=== PATIENT | male | born 1950 | race Caucasian/White ===

== ENCOUNTER 2017-10-17 21:00 | Emergency (ER) | payer MEDICARE, BC ==
[~2017-10-17] VITALS: Ht 198.1 cm; Wt 127.0 kg
[2017-10-17] MEDS ORDERED: METOPROLOL SUC100 MG ORAL (21:32)
[2017-10-17] MEDS ORDERED: ATORVASTATIN CA20 MG ORAL (21:32)
[2017-10-17] MEDS ORDERED: REPAGLINIDE2 MG PO (21:32)
[2017-10-17] MEDS ORDERED: DIGOXIN250 MCG ORAL (21:32)
[2017-10-17] MEDS ORDERED: GLIMEPIRIDE4 MG ORAL (21:32)
[2017-10-17] MEDS ORDERED: FUROSEMIDE80 M1 ORAL (21:32)
[2017-10-17] MEDS ORDERED: METFORMIN HCL1000 M1 ORAL (21:32)
[2017-10-17] MEDS ORDERED: ALLOPURINOL100 M1 ORAL (21:32)
[2017-10-17] MEDS ORDERED: POTASSIUM CHLO20 ME3 PO (21:32)
[2017-10-17] MEDS ORDERED: INDOMETHACIN25 MG PO (21:32)
[2017-10-17] MEDS ORDERED: HYDROCODON-ACE1 EA15 ORAL (21:32)
[2017-10-17] MEDS ORDERED: WARFARIN SODIUM5 MG ORAL (21:32)
[2017-10-17 22:50] LABS: BASOPHILS % (AUTO) 1.9 % (0.0-2.0); EOSINOPHILS % (AUTO) 2.1 % (0.0-3.0); HEMATOCRIT 49.3 % (42.0-52.0); LYMPHOCYTES % (AUTO) 19.4 % (20.0-45.0); MEAN CORPUSCULAR VOLUME 86 FL (80-99); MONOCYTES % (AUTO) 8.2 % (1.0-10.0); NEUTROPHILS % (AUTO) 68.3 % (45.0-75.0); PLATELET COUNT 100 K/UL (150-450); RED BLOOD COUNT 5.72 M/UL (4.70-6.10); RED CELL DISTRIBUTION WIDTH 11.7 % (11.6-14.8); WHITE BLOOD COUNT 10.4 K/UL (4.8-10.8)
[2017-10-17 22:57] LABS: INR 1.3 (0.9-1.1)
[2017-10-17 23:11] VITALS: BP 130/81
[2017-10-17 23:59] VITALS: BP 130/81
--- NOTE | 2017-10-18 03:42 | Emergency Room Report ---
History of Present Illness General Chief Complaint: Nosebleed Source: Patient Present Illness HPI Patient is a 66-year-old male who presented after increased nose bleeding. The patient had onset of symptoms approximately 2 hours prior to arrival. He had the recent increased number of episodes of similar symptoms. Denies any prior trauma. He reportedly had been drinking alcohol immediately prior to onset. The patient had been taking warfarin for irregular heartbeat. Allergies: Coded Allergies: SULFA (SULFONAMIDE ANTIBIOTICS) (Verified Allergy, Unknown, 10/17/17) Patient History Past Medical History: see triage record Reviewed Nursing Documentation: PMH: Agreed; PSxH: Agreed Nursing Documentation-PMH Hx Cardiac Problems: Yes - AFIBB, 4x CABG Hx Hypertension: Yes Hx Pacemaker: Yes Hx Diabetes: Yes - DM II Review of Systems All Other Systems: negative except mentioned in HPI Physical Exam Vital Signs Date Time Temp Pulse Resp B/P (MAP) Pulse Ox O2 Delivery O2 Flow Rate FiO2 10/17/17 21:21 98.1 102 16 144/82 94 Room Air 98.1 General Appearance: well appearing, no apparent distress, alert, GCS 15, Chronically Ill Head: normocephalic, atraumatic ENT: hearing grossly normal, normal voice, other - rhinophyma, packing in left nare, small amount of clotted nasal blood to right nare, no active bleeding noted Neck: full range of motion, supple Respiratory: no respiratory distress, speaking full sentences Cardiovascular #1: normal peripheral pulses, no edema, no gallop Gastrointestinal: normal inspection Musculoskeletal: normal inspection, no calf tenderness Neurologic: normal inspection, alert, oriented x3, responsive, normal gait Psychiatric: mood/affect normal Skin: no rash Medical Decision Making Diagnostic Impression: Primary Impression: Epistaxis Additional Impression: Rhinophyma ER Course Patient presented for nosebleed. Differential diagnosis included was not limited to anterior epistaxis, posterior epistaxis, coagulopathy, anemia among others.Because of complexity of patient's case laboratory testing and imaging studies were ordered.The patient was noted to have subtherapeutic INR . The patient's left naris was packed with an anterior pack. The patient was advised to continue his Coumadin. The patient is advised to return tomorrow for packing removal. the patient was advised to follow-up with ENT. Labs Test 10/17/17 21:45 White Blood Count 10.4 K/UL (4.8-10.8) Red Blood Count 5.72 M/UL (4.70-6.10) Hemoglobin 17.0 G/DL (14.2-18.0) Hematocrit 49.3 % (42.0-52.0) Mean Corpuscular Volume 86 FL (80-99) Mean Corpuscular Hemoglobin 29.8 PG (27.0-31.0) Mean Corpuscular Hemoglobin Concent 34.5 G/DL (32.0-36.0) Red Cell Distribution Width 11.7 % (11.6-14.8) Platelet Count 100 K/UL (150-450) Mean Platelet Volume 11.5 FL (6.5-10.1) Neutrophils (%) (Auto) 68.3 % (45.0-75.0) Lymphocytes (%) (Auto) 19.4 % (20.0-45.0) Monocytes (%) (Auto) 8.2 % (1.0-10.0) Eosinophils (%) (Auto) 2.1 % (0.0-3.0) Basophils (%) (Auto) 1.9 % (0.0-2.0) Prothrombin Time 13.5 SEC (9.30-11.50) Prothromb Time International Ratio 1.3 (0.9-1.1) Activated Partial Thromboplast Time 29 SEC (23-33) Last Vital Signs Date Time Temp Pulse Resp B/P (MAP) Pulse Ox O2 Delivery O2 Flow Rate FiO2 10/17/17 23:59 98.1 97 13 130/81 95 Room Air 98.1 Status: improved Disposition: HOME, SELF-CARE Condition: Improved Referrals: NON PHYSICIAN (PCP) Patient Instructions: Nosebleed, [id number] Wenceslao Barreto October 18, 2017 03:42
== END 2017-10-17 23:59 | disposition home or self-care (01) ==
LOC: EMR 21:44
DX: R04.0 Epistaxis (principal); L71.1 Rhinophyma; I10 Essential (primary) hypertension; E11.9 Type 2 diabetes mellitus without complications; I48.91 Unspecified atrial fibrillation; Z95.0 Presence of cardiac pacemaker; Z88.2 Allergy status to sulfonamides
CPT/HCPCS: 36415; 85025; 85610; 85730; 99283

== ENCOUNTER 2017-10-18 13:36 | Emergency (ER) | payer MEDICARE, BC ==
[~2017-10-18] VITALS: Ht 198.1 cm; Wt 127.0 kg
[~2017-10-18 13:36] MED LIST: ALLOPURINOL100 M1 ORAL; ATORVASTATIN CA20 MG ORAL; DIGOXIN250 MCG ORAL; FUROSEMIDE80 M1 ORAL; GLIMEPIRIDE4 MG ORAL; HYDROCODON-ACE1 EA15 ORAL; INDOMETHACIN25 MG PO; METFORMIN HCL1000 M1 ORAL; METOPROLOL SUC100 MG ORAL; POTASSIUM CHLO20 ME3 PO; REPAGLINIDE2 MG PO; WARFARIN SODIUM5 MG ORAL
[2017-10-18 13:58] VITALS: BP 140/73
[2017-10-18 14:33] VITALS: BP 140/73
--- NOTE | 2017-10-18 14:34 | Emergency Room Report ---
History of Present Illness General Chief Complaint: General Complaint Source: Patient, Medical Record Present Illness HPI Patient had nasal packing in the left nostril yesterday After he experienced epistaxis He reported that this is the third time is happened this here He returns today to have the packing removed Denies any headache denies any further bleeding Denies any blood in the back of the throat Patient has multiple comorbidities including quadruple bypass on multiple anticoagulants including Coumadin Allergies: Coded Allergies: SULFA (SULFONAMIDE ANTIBIOTICS) (Verified Allergy, Unknown, 10/17/17) Patient History Past Medical History: see triage record Pertinent Family History: none Reviewed Nursing Documentation: PMH: Agreed; PSxH: Agreed Nursing Documentation-PMH Past Medical History: No History, Except For Hx Cardiac Problems: Yes - AFIBB, 4x CABG Hx Hypertension: Yes Hx Pacemaker: Yes Hx Asthma: No Hx COPD: No Hx Diabetes: Yes - DM II Hx Cancer: No Hx Gastrointestinal Problems: No Hx Dialysis: No History Of Psychiatric Problem: No Hx Cerebrovascular Accident: No Hx Seizures: No Review of Systems All Other Systems: negative except mentioned in HPI Physical Exam Vital Signs Date Time Temp Pulse Resp B/P (MAP) Pulse Ox O2 Delivery O2 Flow Rate FiO2 10/18/17 13:58 97.7 81 16 140/73 94 Room Air 97.7 Sp02 EP Interpretation: reviewed, normal General Appearance: well appearing, no apparent distress Head: normocephalic, atraumatic Eyes: bilateral eye PERRL, bilateral eye EOMI ENT: hearing grossly normal, normal pharynx, TMs + canals normal, uvula midline , other - Packing in place in the left nostril balloon inflated Neck: full range of motion, supple, no meningismus, no bony tend Respiratory: lungs clear, normal breath sounds, no rhonchi, no respiratory distress, no retraction, no accessory muscle use Cardiovascular #1: normal peripheral pulses, regular rate, rhythm, no edema, no gallop, no JVD, no murmur Gastrointestinal: no guarding, no hernia, no pulsatile mass, no rebound Musculoskeletal: normal inspection Neurologic: oriented x3, responsive, home health lvn III-XII nml as tested, motor strength/ tone normal, sensory intact Psychiatric: mood/affect normal Skin: normal color, no rash, warm/dry, palpation normal Lymphatic: normal inspection, no adenopathy Medical Decision Making Diagnostic Impression: Primary Impression: Epistaxis Additional Impression: packing removed ER Course Given the patient's comorbidities given the anticoagulation that he is on I did recommend that the packing should be in place for the next 2-3 days And the patient to be on oral antibiotics However he reports that he does not want the packing in place, he also reports, that it takes him approximately 2 hours to get ready in the morning time, and that he understands the risk of bleeding and so requesting the apparatus to be removed Guest in the room also stated that the patient would be most likely drinking alcohol that evening he was advised of this does increase the risk of bleeding even more However the patient so requesting the packing to be removed This was removed in the usual fashion after deflating the balloon, reevaluation reveals appropriate removal no signs of any bleeding or oozing of blood patient was observed and stable for discharge home. Last Vital Signs Date Time Temp Pulse Resp B/P (MAP) Pulse Ox O2 Delivery O2 Flow Rate FiO2 10/18/17 13:58 16 140/73 94 Room Air 10/18/17 13:58 97.7 81 97.7 Status: improved Disposition: HOME, SELF-CARE Condition: Improved Patient Instructions: Nosebleed, [id number] Additional Instructions: It was advised that your packing remain in place for 2-3 days. However given your request understanding the risk factor of bleeding, the packing was removed. Please return if there are any concerns or changes Priscilla Hubbard DO October 18, 2017 14:34
== END 2017-10-18 15:04 | disposition home or self-care (01) ==
LOC: EMR 14:20
DX: R04.0 Epistaxis (principal); I10 Essential (primary) hypertension; I48.91 Unspecified atrial fibrillation; Z95.1 Presence of aortocoronary bypass graft; Z95.0 Presence of cardiac pacemaker; E11.9 Type 2 diabetes mellitus without complications; Z88.2 Allergy status to sulfonamides; Z79.01 Long term (current) use of anticoagulants
CPT/HCPCS: 99283

== ENCOUNTER 2017-10-20 20:51 | Inpatient (IN) | payer MEDICARE, BC ==
[~2017-10-20] VITALS: Ht 198.1 cm; Wt 127.0 kg
[2017-10-20] MEDS ORDERED: Silver Nitrate Stick TOPIC ONE (21:15)
[2017-10-20] MEDS ORDERED: Lidocaine 1% 10mg/ml/Epi 0.005mg/ml 30ml vial INJ ONE (21:15)
--- NOTE | 2017-10-20 21:17 | Emergency Room Report ---
History of Present Illness General Chief Complaint: Nosebleed Source: Patient, Significant Other Present Illness HPI The patient presents with nosebleed. Blood is coming from the left-hand side. Was seen on Friday and was at a packing placed. It was removed the next day. Today, while leaning forward the nose started to bleed and gush again. Patient is on Coumadin. He says there was a lot of blood. He packed the nose with Kleenex and this stopped the flow. He has swallowed blood, but denies nausea or epigastric discomfort. No headache, dizziness, chest pain, dyspnea. No melena. No fevers, facial pain. He drinks alcohol. H/O CVA. Chronic weakness post this. 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 Nursing Documentation: PMH: Agreed; PSxH: Agreed Nursing Documentation-PMH Hx Cardiac Problems: Yes - AFIBB, 4x CABG Hx Hypertension: Yes Hx Pacemaker: Yes Hx Asthma: No Hx COPD: No Hx Diabetes: Yes - DM II Hx Cancer: No Hx Gastrointestinal Problems: No Hx Dialysis: No Hx Cerebrovascular Accident: No Hx Seizures: No Review of Systems All Other Systems: negative except mentioned in HPI Physical Exam Vital Signs Date Time Temp Pulse Resp B/P (MAP) Pulse Ox O2 Delivery O2 Flow Rate FiO2 10/20/17 20:56 89 16 163/79 96 Room Air Sp02 EP Interpretation: reviewed, normal General Appearance: well appearing, no apparent distress, GCS 15 Head: normocephalic Eyes: bilateral eye normal inspection, bilateral eye PERRL ENT: moist mucus membranes, other - blood soaked Kleenex L nose Neck: supple Respiratory: lungs clear, normal breath sounds Cardiovascular #1: regular rate, rhythm Cardiovascular #2: 2+ radial (R) Gastrointestinal: normal inspection, normal bowel sounds, non tender, no mass, non-distended Musculoskeletal: back normal, gait/station normal, normal range of motion Neurologic: alert, oriented x3, normal gait - walks with cane, motor weakness - minimal Psychiatric: mood/affect normal Skin: normal inspection, warm/dry Procedures Additional Procedure Procedure Narrative Epistaxis control: lido epi packed cautery - not stop bleeding bleeding brisk. Rhinorocket placed (dual balloons). Bleeding less, but still ooze. Please see ER course. Medical Decision Making Diagnostic Impression: Primary Impression: Epistaxis Additional Impression: Anticoagulation adequate ER Course Patient presents with epistaxis on the left-hand side. Differential includes anterior bleed, posterior bleed. He is at increased risk because he is on Coumadin. He'll be packed with lidocaine and epinephrine and then we'll be looking trying cauterize the area. The bleeding stop of lidocaine with epinephrine and then there is a small lesion was cauterized however this did not control the bleeding. The patient was then packed with a Rhino rocket. The patient continued to ooze after placement of the Rhino Rocket. Therefore, he needed to see ENT emergently. The plan was to admit to the hospital have ENT consultation. Amoxicillin given. Analgesia also given. Dr. Encinas refuses admission as no ENT. Labs ordered. INR 2.8, slightly higher than prior eval. H/H high. CMP unremarkable. Still ooze but less. Trying to contact Dr. Ballesteros. Ordered Tranxanemic acid. Discussed with pharmacist. Not available. Contact [facility]. ENT unavailable. Discussion with Dr. Preciado who suggests packing both sides and reversing Coumadin. Calling [facility]. Saturation. Bleeding has stopped. Discussed with Dr. Ballesteros who will come to see the patient. Signed out to Dr. Hubbard. Laboratory Tests Test 10/21/17 00:25 White Blood Count 11.0 K/UL (4.8-10.8) H Red Blood Count 5.30 M/UL (4.70-6.10) Hemoglobin 16.9 G/DL (14.2-18.0) Hematocrit 46.4 % (42.0-52.0) Mean Corpuscular Volume 88 FL (80-99) Mean Corpuscular Hemoglobin 31.9 PG (27.0-31.0) H Mean Corpuscular Hemoglobin Concent 36.4 G/DL (32.0-36.0) H Red Cell Distribution Width 11.6 % (11.6-14.8) Platelet Count 110 K/UL (150-450) L Mean Platelet Volume 10.0 FL (6.5-10.1) Neutrophils (%) (Auto) 65.6 % (45.0-75.0) Lymphocytes (%) (Auto) 22.3 % (20.0-45.0) Monocytes (%) (Auto) 8.4 % (1.0-10.0) Eosinophils (%) (Auto) 2.3 % (0.0-3.0) Basophils (%) (Auto) 1.4 % (0.0-2.0) Prothrombin Time 29.5 SEC (9.30-11.50) H Prothrombin Time INR 2.8 (0.9-1.1) H PTT 33 SEC (23-33) Sodium Level 138 MMOL/L (136-145) Potassium Level 4.4 MMOL/L (3.5-5.1) Chloride Level 101 MMOL/L (98-107) Carbon Dioxide Level 27 MMOL/L (21-32) Anion Gap 10 mmol/L (5-15) Blood Urea Nitrogen 40 mg/dL (7-18) H Creatinine 0.9 MG/DL (0.55-1.30) Estimate Glomerular Filtration Rate > 60 mL/min (>60) Glucose Level 152 MG/DL (74-106) H Calcium Level 9.4 MG/DL (8.5-10.1) Total Bilirubin 0.8 MG/DL (0.2-1.0) Aspartate Amino Transferase (AST) 24 U/L (15-37) Alanine Aminotransferase (ALT) 34 U/L (12-78) Alkaline Phosphatase 85 U/L (46-116) Total Creatine Kinase 159 U/L (26-308) Troponin I 0.025 ng/mL (0.000-0.056) Total Protein 8.4 G/DL (6.4-8.2) H Albumin 4.1 G/DL (3.4-5.0) Globulin 4.3 g/dL Albumin/Globulin Ratio 1.0 (1.0-2.7) EKG Diagnostic Results Rate: normal Rhythm: NSR - with PVCs Rhythm Strip Diag. Results EP Interpretation: yes Rhythm: NSR, no PVC's, no ectopy Last Vital Signs Date Time Temp Pulse Resp B/P (MAP) Pulse Ox O2 Delivery O2 Flow Rate FiO2 10/21/17 05:18 97.8 87 20 161/89 97 Room Air 97.8 Status: improved Disposition: HOME, SELF-CARE Condition: Improved Scripts Hydrocodone Bit/Acetaminophen 5-325* (NORCO 5-325*) 1 Each Tablet 1 TAB ORAL Q6H PRN for For Pain, #10 TAB 0 Refills Prov: John Rooney M.D. 10/20/17 Amoxicillin* (AMOXIL*) 500 Mg Capsule 500 MG ORAL EVERY 8 HOURS for 7 Days, #21 CAP Prov: John Rooney M.D. 10/20/17 John Rooney M.D. October 20, 2017 21:16
[2017-10-20 21:30] VITALS: BP 157/78
[2017-10-20] MEDS ORDERED: AMOXICILLIN500 MG ORAL (23:37)
[2017-10-20] MEDS ORDERED: NORCO 5-325 TA1 EACH ORAL (23:37)
[2017-10-20] MEDS ORDERED: Norco 5mg/325mg tab ORAL ONE (23:45)
[2017-10-21] VITALS (7 sets, daily range): BP systolic 137–161; BP diastolic 76–89
[2017-10-21 00:48] LABS: BASOPHILS % (AUTO) 1.4 % (0.0-2.0); EOSINOPHILS % (AUTO) 2.3 % (0.0-3.0); HEMATOCRIT 46.4 % (42.0-52.0); HEMOGLOBIN 16.9 G/DL (14.2-18.0); LYMPHOCYTES % (AUTO) 22.3 % (20.0-45.0); MEAN CORPUSCULAR VOLUME 88 FL (80-99); MONOCYTES % (AUTO) 8.4 % (1.0-10.0); NEUTROPHILS % (AUTO) 65.6 % (45.0-75.0); PLATELET COUNT 110 K/UL (150-450); RED CELL DISTRIBUTION WIDTH 11.6 % (11.6-14.8)
[2017-10-21 00:53] LABS: ANION GAP 10 mmol/L (5-15); BLOOD UREA NITROGEN 40 mg/dL (7-18); CALCIUM 9.4 MG/DL (8.5-10.1); CARBON DIOXIDE 27 MMOL/L (21-32); CHLORIDE 101 MMOL/L (98-107); CREATININE 0.9 MG/DL (0.55-1.30); POTASSIUM 4.4 MMOL/L (3.5-5.1); SODIUM 138 MMOL/L (136-145)
[2017-10-21 00:58] LABS: ALANINE AMINOTRANSFERASE 34 U/L (12-78); ALBUMIN 4.1 G/DL (3.4-5.0); ALKALINE PHOSPHATASE 85 U/L (46-116); ASPARTATE AMINO TRANSFERASE 24 U/L (15-37); BILIRUBIN,TOTAL 0.8 MG/DL (0.2-1.0); CREATINE KINASE 159 U/L (26-308)
[2017-10-21 01:12] LABS: INR 2.8 (0.9-1.1)
[2017-10-21] MEDS ORDERED: oxyCODONE HCL/Acetaminophen 5/325mg ORAL STA (02:47)
[2017-10-21 06:08] LABS: APPEARANCE,URINE CLEAR; BILIRUBIN, URINE NEGATIVE (NEGATIVE); COLOR,URINE PALE YELLOW; GLUCOSE, URINE (UA) NEGATIVE (NEGATIVE); KETONES,URINE NEGATIVE (NEGATIVE); LEUKOCYTE ESTERASE ,URINE NEGATIVE (NEGATIVE); NITRITE,URINE NEGATIVE (NEGATIVE); PH,URINE 6 (4.5-8.0); PROTEIN,URINE NEGATIVE (NEGATIVE); UROBILINOGEN,URINE NORMAL MG/DL (0.0-1.0)
[2017-10-21] MEDS: NovoLOG Insulin Flexpen SUBQ SCH ×3 (11:46→20:48)
[2017-10-21] MEDS ORDERED: INDOCIN25 MG ORAL (13:44)
[2017-10-21] MEDS ORDERED: POTASSIUM CHLO20 ME3 PO (13:44)
[2017-10-21] MEDS ORDERED: FUROSEMIDE80 M1 ORAL (13:44)
[2017-10-21] MEDS ORDERED: REPAGLINIDE2 MG PO (13:44)
[2017-10-21] MEDS ORDERED: METOPROLOL TAR100 M1 ORAL (13:44)
[2017-10-21] MEDS ORDERED: GLIMEPIRIDE4 MG ORAL (13:44)
[2017-10-21] MEDS ORDERED: ALLOPURINOL100 M1 ORAL (13:44)
[2017-10-21] MEDS ORDERED: ATORVASTATIN CA20 MG ORAL (13:44)
[2017-10-21] MEDS ORDERED: METFORMIN HCL1000 M1 ORAL (13:44)
--- NOTE | 2017-10-21 14:30 | History and Physical Report ---
DATE OF ADMISSION: 10/21/2017 HISTORY OF PRESENT ILLNESS: This is a 66-year-old male with a previous very complicated cardiac history, came to the hospital with epistaxis. The patient has had previous epistaxis as well. This epistaxis started several days ago. Nasal packing was placed and removed. He again started to have epistaxis and he was brought to the emergency room at [facility]. He underwent nose packing by the ER physician. Overnight, been seen by ENT. PAST MEDICAL HISTORY: Notable for chronic Coumadin usage, permanent pacemaker, previous CABG, atrial fibrillation, diabetes mellitus, gout, and hypertension. The patient has a history of SAMIRA and with a CPAP machine at home. HOME MEDICATIONS: Metformin, glimepiride, Coumadin, aspirin, allopurinol, Lasix, metoprolol, NSAIDs, and Lipitor. REVIEW OF SYSTEMS: The patient denies any headaches, hematemesis, melena, or hematochezia. PHYSICAL EXAMINATION: GENERAL: Reveals an obese male. HEENT: Unremarkable. LUNGS: Clear breath sounds bilaterally. ABDOMEN: Soft. HEART: There is a pacemaker noted in the left supraclavicular fossa. EXTREMITIES: There is no edema, cyanosis, or clubbing. IMPRESSION: 1. Epistaxis. 2. Hypertension. 3. Diabetes mellitus. 4. Chronic Coumadin usage. 5. Permanent pacemaker. 6. Previous CABG. 7. Atrial fibrillation. 8. SAMIRA. DISCUSSION: Admit to the hospital. We will resume home medications except for Coumadin. We will consult Cardiology. The patient may benefit from vitamin K. The patient had been seen by the ENT. He will need to continue medications for rate control. Accu-Cheks and sliding scale. SCDs. 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 Neri Encinas M.D. DR: FELICIA JOB#: [id number] CC:
--- NOTE | 2017-10-21 15:24 | Cardiology Progress Note ---
Assessment/Plan Assessment/Plan [email or web address] [id number] hold anticoagulation for 2-3 days then resume to prevent rebleedign he indicated he has withheld coumadin on piror occasions for other procedure before as well of note his bleeding on 10/17 occurs with an inr of 1.3!! green veggies today and tomorrow Objective Last 24 Hour Vital Signs Date Time Temp Pulse Resp B/P (MAP) Pulse Ox O2 Delivery O2 Flow Rate FiO2 10/21/17 12:53 98.1 81 20 143/80 95 98.1 10/21/17 10:39 97.2 70 20 148/77 96 97.2 10/21/17 09:45 98.2 84 19 149/76 99 Room Air 98.2 10/21/17 07:35 98.2 84 19 149/76 99 Room Air 98.2 10/21/17 05:18 97.8 87 20 161/89 97 Room Air 97.8 10/21/17 02:43 97.8 81 20 155/79 97 Room Air 97.8 10/20/17 21:30 97.8 89 16 157/78 96 Room Air 97.8 10/20/17 20:56 89 16 163/79 96 Room Air Intake and Output 10/20/17 10/21/17 19:00 07:00 Output Total 0 ml Balance 0 ml Output Urine Total 0 ml Laboratory Tests Test 10/21/17 00:25 10/21/17 05:20 White Blood Count 11.0 K/UL (4.8-10.8) H Red Blood Count 5.30 M/UL (4.70-6.10) Hemoglobin 16.9 G/DL (14.2-18.0) Hematocrit 46.4 % (42.0-52.0) Mean Corpuscular Volume 88 FL (80-99) Mean Corpuscular Hemoglobin 31.9 PG (27.0-31.0) H Mean Corpuscular Hemoglobin Concent 36.4 G/DL (32.0-36.0) H Red Cell Distribution Width 11.6 % (11.6-14.8) Platelet Count 110 K/UL (150-450) L Mean Platelet Volume 10.0 FL (6.5-10.1) Neutrophils (%) (Auto) 65.6 % (45.0-75.0) Lymphocytes (%) (Auto) 22.3 % (20.0-45.0) Monocytes (%) (Auto) 8.4 % (1.0-10.0) Eosinophils (%) (Auto) 2.3 % (0.0-3.0) Basophils (%) (Auto) 1.4 % (0.0-2.0) Prothrombin Time 29.5 SEC (9.30-11.50) H Prothromb Time International Ratio 2.8 (0.9-1.1) H Activated Partial Thromboplast Time 33 SEC (23-33) Sodium Level 138 MMOL/L (136-145) Potassium Level 4.4 MMOL/L (3.5-5.1) Chloride Level 101 MMOL/L (98-107) Carbon Dioxide Level 27 MMOL/L (21-32) Anion Gap 10 mmol/L (5-15) Blood Urea Nitrogen 40 mg/dL (7-18) H Creatinine 0.9 MG/DL (0.55-1.30) Estimat Glomerular Filtration Rate > 60 mL/min (>60) Glucose Level 152 MG/DL (74-106) H Calcium Level 9.4 MG/DL (8.5-10.1) Total Bilirubin 0.8 MG/DL (0.2-1.0) Aspartate Amino Transf (AST/SGOT) 24 U/L (15-37) Alanine Aminotransferase (ALT/SGPT) 34 U/L (12-78) Alkaline Phosphatase 85 U/L (46-116) Total Creatine Kinase 159 U/L (26-308) Troponin I 0.025 ng/mL (0.000-0.056) Total Protein 8.4 G/DL (6.4-8.2) H Albumin 4.1 G/DL (3.4-5.0) Globulin 4.3 g/dL Albumin/Globulin Ratio 1.0 (1.0-2.7) Urine Color Pale yellow Urine Appearance Clear Urine pH 6 (4.5-8.0) Urine Specific [place] 1.010 (1.005-1.035) Urine Protein Negative (NEGATIVE) Urine Glucose (UA) Negative (NEGATIVE) Urine Ketones Negative (NEGATIVE) Urine Occult Blood Negative (NEGATIVE) Urine Nitrite Negative (NEGATIVE) Urine Bilirubin Negative (NEGATIVE) Urine Urobilinogen Normal MG/DL (0.0-1.0) Urine Leukocyte Esterase Negative (NEGATIVE) SABRINA MORRELL October 21, 2017 15:24
--- NOTE | 2017-10-21 16:42 | Cardiology Report ---
APPROVED REPORT EKG Measurement Heart [id number] afib v pacing
[2017-10-21] MEDS: Allopurinol 100mg Tab ORAL SCH (16:55)
[2017-10-21] MEDS: Furosemide 80mg tab ORAL SCH (16:56)
[2017-10-21] MEDS: Indomethacin 25mg cap ORAL SCH (16:56)
--- NOTE | 2017-10-21 19:00 | Consultation ---
DATE OF CONSULTATION: 10/21/2017 HEAD AND NECK SURGERY, ENT CONSULT CONSULTING PHYSICIAN: Silvestre Ballesteros M.D. REQUESTING PHYSICIAN: Neri Encinas M.D. INDICATION FOR CONSULTATION: The patient is a 66-year-old male who was admitted with epistaxis, ended up with a posterior bleed with the emergency room overnight. I saw him this morning. He had double Rhino rocket in, one posterior, one anterior, inflated 10 mL each part. It only bled a little bit about 10 minutes before I saw him, otherwise he had not bled for few hours. MEDICAL HISTORY: Significant for numerous cardiac issues. He is on Coumadin, INR was 2.6. He has diabetes, high blood pressure, gout, cholesterol issues, atrial fibrillation, sleep apnea. MEDICATIONS: Hydrocodone with Tylenol, allopurinol, amoxicillin, atorvastatin, digoxin, Lasix, glimepiride, indomethacin, metformin, metoprolol, potassium, warfarin. ALLERGIES: He is allergic to sulfa drugs. PHYSICAL EXAMINATION: VITAL SIGNS: He is 198.12 centimeters, weight 127.006 kilograms with a BMI of 32.4 kilograms/meter squared. HEENT: Head, normocephalic. He is awake and alert, stable, sitting in bed. He has Rhino rocket in his left nostril. Eyes, pupils equally round and reactive to light and accommodation. Extraocular muscles intact. Ears positive light reflex. Normal canal. Mouth has no active bleeding in posterior oropharynx. NECK: No masses. ASSESSMENT: 1. Nosebleed, probably posterior. 2. Atrial fibrillation. 3. High blood pressure. 4. Diabetes. 5. PLAN: Keep the pack in as is in place. I will see him tomorrow. I will remove some of the saline from the Rhino Rocket but we will leave Rhino Rocket inside his left nostril. This is being done in case he starts bleeding we can always add more water. It is easier than putting in new Rhino Rocket today. Over the next few days, we will decrease all of water and he anticipates and is aware that it will be a 3 or 4 hospital days stay. Thank you very much for asking my opinion care and treatment of this patient. Silvestre Ballesteros M.D. DR: Ricky JOB#: [id number] CC: RAMANA
[2017-10-21] MEDS: Repaglinide 1mg tab ORAL SCH (20:47)
[2017-10-21] MEDS: Atorvastatin 20mg tab ORAL SCH (20:47)
[2017-10-21] MEDS ORDERED: Zolpidem 5mg tab ORAL PRN (21:15)
--- NOTE | 2017-10-21 23:15 | Consultation ---
DATE OF CONSULTATION: 10/21/2017 CARDIOLOGY CONSULTATION CONSULTING PHYSICIAN: Ludwig Landrum M.D. REFERRING PHYSICIAN: Neri Encinas M.D. REASON FOR REFERRAL: Coagulopathy secondary to Coumadin in the face of epistaxis. HISTORY OF PRESENT ILLNESS: The patient is a 66-year-old gentleman with history of atrial fibrillation; coronary artery disease, status post coronary artery bypass grafting; permanent atrial fibrillation; history of permanent pacemaker implantation who presented to the hospital because of recurrent episodes of epistaxis. Apparently, he was in the hospital here a few days earlier because of the same problem. He was seen in the emergency room, had an anterior nasal pack that was placed, was advised to continue his Coumadin, and this packing was removed, and he was given instructions to follow up with ENT. Unfortunately, he started bleeding again, and again a nasal packing tamponade was placed. His INR was 2.8 during this evaluation, although during the last evaluation a few days ago, his INR was only 1.3. Nevertheless, because of persistent bleeding, a nasal packing had been placed and he has been admitted to the hospital. He has not had any Coumadin today. His last dose of Coumadin was yesterday. He has not had any chest pain or shortness of breath. He apparently does have some shortness of breath with some activities and he is not very active except for walking to the court and back to his office. He walks with a cane and does not have any PND or orthopnea. He uses two pillows for comfort. No dizziness or lightheadedness on standing and no heart pounding or palpitations. PAST MEDICAL HISTORY: Positive for diabetes; high blood pressure; arthritis; coronary artery disease, status post coronary artery bypass grafting; permanent atrial fibrillation; and he has had history of several cardioversions. SOCIAL HISTORY: He does smoke everyday. He drinks some alcoholic beverages. No drugs. 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 ALLERGIES: Sulfa. REVIEW OF SYSTEMS: GASTROINTESTINAL: He has had some bloody stools, which he tells me has been going on for some time now. He never had a colonoscopy, but he is aware of the need to inform his primary care physician about this. GENITOURINARY: Negative. PULMONARY: Negative. CONSTITUTIONAL: Negative. NEUROLOGIC: Negative. PHYSICAL EXAMINATION: GENERAL: Shows to be middle-aged gentleman, in no respiratory distress. Nasal packing in place on left naris. LUNGS: Clear to auscultation and percussion. CARDIAC: Irregular. No heaves, thrills, or gallops. ABDOMEN: Soft and nontender. Positive bowel sounds. EXTREMITIES: Chronic venous stasis changes and mild edema of the lower extremities bilaterally. NEUROLOGICAL: He is awake, alert, responsive, in no apparent distress. LABORATORY AND DIAGNOSTIC DATA: INR is 2.8 and PTT of 33. White count is 11 and hemoglobin 16.9, and platelet count of 110. Sodium is 138, potassium 4.4, chloride 101, bicarbonate 26, BUN of 14, creatinine 0.9, glucose of 152, troponin of 0.025, CK of 159, and albumin is 4.1. His urinalysis is unremarkable. He had an electrocardiogram, which shows atrial fibrillation with intermittent ventricular pacing, some nonspecific T-wave abnormalities being documented. ASSESSMENT AND PLAN: 1. Recurrent epistaxis. 2. Coagulopathy secondary to Coumadin. 3. Coronary artery disease, status post coronary artery bypass grafting. 4. Exertional dyspnea. 5. Permanent atrial fibrillation. 6. History of permanent pacemaker implantation. 7. Obstructive sleep apnea. 8. Hyperlipidemia. 9. Obesity. This patient is admitted to the hospital because of nasal packing and recurrent bleeding. His INR was 2.8. I do not know whether he requires total conversion with vitamin K supplementation, although I do not mind if he takes some vitamin K in his food products, but I suspect that he probably should be kept off of anticoagulation for few days. I have explained to him that being off anticoagulation, subtherapeutic INR may increase the risk for stroke, although I propose probably an amount of three or four days of being off of anticoagulation to allow healing of area of his epistaxis; otherwise, he will have recurrent problems with epistaxis. Hopefully, his Ear, Nose and Throat doctor will identify area of bleeding that could be cauterized and treated to prevent recurrent episodes of epistaxis. Echocardiogram will be ordered to evaluate his systolic function. He was supposed to have a rhythm monitor done by his usual extension course counselor, Dr. Craig tomorrow, but unfortunately he is in the hospital at this time and we will reschedule for a later date. Ludwig Landurm M.D. DR: BRYCE JOB#: [id number] CC:
[2017-10-22 00:36] VITALS: BP 133/72
[2017-10-22 04:24] VITALS: BP 138/92
[2017-10-22] MEDS: Glimepiride 1mg tab ORAL SCH (06:17)
[2017-10-22] MEDS: NovoLOG Insulin Flexpen SUBQ SCH ×4 (06:18→21:55)
[2017-10-22] MEDS: Allopurinol 100mg Tab ORAL SCH (08:08)
[2017-10-22] MEDS: Indomethacin 25mg cap ORAL SCH (08:08)
[2017-10-22] MEDS: Furosemide 80mg tab ORAL SCH (08:08)
--- NOTE | 2017-10-22 08:20 | Pulmonology Progress Note ---
Assessment/Plan Assessment/Plan IMPRESSION: 1. Epistaxis. Resolved with posterior packing. 2. Hypertension. 3. Diabetes mellitus. 4. Chronic Coumadin usage. Will check INR in AM 5. Permanent pacemaker. 6. Previous CABG. 7. Atrial fibrillation. 8. SAMIRA. DISCUSSION: Continue all home medications except for Coumadin. ENt and Cardiology following Ambien for Insomnia Nocturnal CPAP for SAMIRA Accu-Cheks and sliding scale. SCDs. I will follow as paper colorer Check labs in AM ENT to remove fluid from posterior packing today Subjective Interval Events: Feeling better Constitutional: Reports: no symptoms HEENT: Repors: no symptoms Respiratory: Reports: no symptoms Cardiovascular: Reports: no symptoms Gastrointestinal/Abdominal: Reports: no symptoms Allergies: Coded Allergies: SULFA (SULFONAMIDE ANTIBIOTICS) (Verified Allergy, Unknown, 10/17/17) Objective Last 24 Hour Vital Signs Date Time Temp Pulse Resp B/P (MAP) Pulse Ox O2 Delivery O2 Flow Rate FiO2 10/22/17 08:07 79 138/92 10/22/17 04:24 97 Room Air 10/22/17 04:24 98.3 79 19 138/92 97 98.3 10/22/17 00:36 98.1 67 19 133/72 97 98.1 10/22/17 00:36 97 Room Air 10/21/17 21:38 98.2 71 18 142/77 97 98.2 10/21/17 21:38 97 Room Air 10/21/17 17:31 97.5 10/21/17 17:30 97.5 10/21/17 16:55 76 137/86 10/21/17 16:03 97.5 76 20 137/86 94 97.5 10/21/17 12:53 98.1 81 20 143/80 95 98.1 10/21/17 10:39 97.2 70 20 148/77 96 97.2 10/21/17 09:45 98.2 84 19 149/76 99 Room Air 98.2 Intake and Output 10/21/17 10/22/17 19:00 07:00 Intake Total 650 ml 480 ml Balance 650 ml 480 ml Intake Oral 650 ml 480 ml # Voids 2 3 General Appearance: no acute distress HEENT: normocephalic Respiratory/Chest: chest wall non-tender, lungs clear Cardiovascular: normal peripheral pulses, normal rate Current Medications Medications (Trade) Dose Ordered Sig/Riccardo Route PRN Reason Start Time Stop Time Status Last Admin Dose Admin Allopurinol (Zyloprim) 100 mg DAILY ORAL 10/21/17 15:00 11/20/17 14:59 10/22/17 08:08 Atorvastatin Calcium (Lipitor) 20 mg BEDTIME ORAL 10/21/17 21:00 11/20/17 20:59 10/21/17 20:47 Dextrose (Dextrose 50%) 25 ml STAT PRN IV Hypoglycemia 10/21/17 10:30 11/20/17 10:29 Dextrose (Dextrose 50%) 50 ml STAT PRN IV Hypoglycemia 10/21/17 10:30 11/20/17 10:29 Furosemide (Lasix) 80 mg DAILY ORAL 10/21/17 16:00 11/20/17 15:59 10/22/17 08:08 Glimepiride (Amaryl) 5 mg ACBREAKFAST ORAL 10/22/17 06:30 11/21/17 06:29 10/22/17 06:17 Indomethacin (Indocin) 25 mg DAILY ORAL 10/21/17 15:00 11/20/17 14:59 10/22/17 08:08 Insulin Aspart (NovoLOG) BEFORE MEALS AND HS SUBQ 10/21/17 11:30 11/20/17 11:29 10/22/17 06:18 Metoprolol Tartrate (Lopressor) 100 mg DAILY ORAL 10/21/17 15:00 11/20/17 14:59 10/22/17 08:07 Potassium Chloride (K-Dur) 20 meq DAILY ORAL 10/22/17 09:00 11/21/17 08:59 10/22/17 08:07 Repaglinide (Prandin) 2 mg BIOTEC ORAL 10/21/17 21:00 11/20/17 20:59 10/21/17 20:47 Zolpidem Tartrate (Ambien) 5 mg HSPRN PRN ORAL Insomnia 10/21/17 21:15 10/28/17 21:14 10/21/17 21:26 Neri Encinas MD October 22, 2017 08:20
[2017-10-22 08:44] VITALS: BP 149/84
[2017-10-22 09:22] LABS: HEMATOCRIT 41.8 % (42.0-52.0); HEMOGLOBIN 14.7 G/DL (14.2-18.0); MEAN CORPUSCULAR VOLUME 87 FL (80-99); PLATELET COUNT 86 K/UL (150-450); RED BLOOD COUNT 4.79 M/UL (4.70-6.10); RED CELL DISTRIBUTION WIDTH 11.8 % (11.6-14.8); WHITE BLOOD COUNT 11.4 K/UL (4.8-10.8)
[2017-10-22 09:33] LABS: INR 1.7 (0.9-1.1)
[2017-10-22 09:52] LABS: ALANINE AMINOTRANSFERASE 29 U/L (12-78); ALBUMIN 3.9 G/DL (3.4-5.0); ALKALINE PHOSPHATASE 71 U/L (46-116); ANION GAP 9 mmol/L (5-15); ASPARTATE AMINO TRANSFERASE 22 U/L (15-37); BILIRUBIN,TOTAL 0.9 MG/DL (0.2-1.0); BLOOD UREA NITROGEN 24 mg/dL (7-18); CARBON DIOXIDE 27 MMOL/L (21-32); CHLORIDE 101 MMOL/L (98-107); CREATININE 0.8 MG/DL (0.55-1.30); POTASSIUM 3.6 MMOL/L (3.5-5.1); SODIUM 137 MMOL/L (136-145)
[2017-10-22 12:57] VITALS: BP 144/95
--- NOTE | 2017-10-22 13:30 | General Progress Note ---
Assessment/Plan Problem List: (1) Epistaxis ICD Codes: R04.0 - Epistaxis SNOMED: 294718351 Status: doing well Status Narrative INR is decreasing. At about 12:30 PM I removed 5 cc from each balloon from Rhinorocket. I waited about 30 minutes, no bleeding from nose or oral pharynx. Assessment/Plan 1. Epistaxis is controlled at this time. 2. I will come back tomorrow at remove any additional fluids from the RhinoRocket. If no bleeding then, will remove. 3. Cardiology and PMD note read and appreciated. Subjective Date patient seen: October 22, 2017 Time patient seen: 13:22 ROS Limited/Unobtainable: No HEENT: Reports: other - No epistaxis since when I saw him for initial ENT consult. Allergies: Coded Allergies: SULFA (SULFONAMIDE ANTIBIOTICS) (Verified Allergy, Unknown, 10/17/17) All Systems: reviewed and negative except above Subjective No bleeding since I saw him yesterday for initial consult. Objective Last 24 Hour Vital Signs Date Time Temp Pulse Resp B/P (MAP) Pulse Ox O2 Delivery O2 Flow Rate FiO2 10/22/17 12:57 98.2 70 18 144/95 Room Air 98.2 10/22/17 08:44 98.2 70 18 149/84 Room Air 98.2 10/22/17 08:07 79 138/92 10/22/17 04:24 97 Room Air 10/22/17 04:24 98.3 79 19 138/92 97 98.3 10/22/17 00:36 98.1 67 19 133/72 97 98.1 10/22/17 00:36 97 Room Air 10/21/17 21:38 98.2 71 18 142/77 97 98.2 10/21/17 21:38 97 Room Air 10/21/17 17:31 97.5 10/21/17 17:30 97.5 10/21/17 16:55 76 137/86 10/21/17 16:03 97.5 76 20 137/86 94 97.5 Intake and Output 10/21/17 10/22/17 19:00 07:00 Intake Total 650 ml 480 ml Balance 650 ml 480 ml Intake Oral 650 ml 480 ml # Voids 2 3 Laboratory Tests 10/22/17 07:38: White Blood Count 11.4H, Red Blood Count 4.79, Hemoglobin 14.7, Hematocrit 41.8L , Mean Corpuscular Volume 87, Mean Corpuscular Hemoglobin 30.7, Mean Corpuscular Hemoglobin Concent 35.2, Red Cell Distribution Width 11.8, Platelet Count 86L, Mean Platelet Volume 9.2, Neutrophils (%) (Auto) , Lymphocytes (%) ( Auto) , Monocytes (%) (Auto) , Eosinophils (%) (Auto) , Basophils (%) (Auto) , Differential Total Cells Counted 100, Neutrophils % (Manual) 80H, Lymphocytes % (Manual) 13L, Monocytes % (Manual) 5, Eosinophils % (Manual) 1, Basophils % ( Manual) 1, Band Neutrophils 0, Platelet Estimate DecreasedL, Platelet Morphology Normal, Red Blood Cell Morphology Normal, Prothrombin Time 18.4H, Prothromb Time International Ratio 1.7H, Activated Partial Thromboplast Time 32 , Sodium Level 137, Potassium Level 3.6, Chloride Level 101, Carbon Dioxide Level 27, Anion Gap 9, Blood Urea Nitrogen 24H, Creatinine 0.8, Estimat Glomerular Filtration Rate > 60, Glucose Level 180H, Calcium Level 9.0, Total Bilirubin 0.9, Aspartate Amino Transf (AST/SGOT) 22, Alanine Aminotransferase ( ALT/SGPT) 29, Alkaline Phosphatase 71, Total Protein 7.7, Albumin 3.9, Globulin 3.8, Albumin/Globulin Ratio 1.0 INR 1.7 down from 2.4 now off Coumadin. Height (Feet): 6 Height (Inches): 6.00 Weight (Pounds): 280 EENT: other - Rhinorocket in place-left nostril NANCY COLLADO October 22, 2017 13:30
[2017-10-22 16:28] VITALS: BP 132/75
--- NOTE | 2017-10-22 19:23 | Cardiology Progress Note ---
Assessment/Plan Assessment/Plan 1. Recurrent epistaxis. 2. Coagulopathy secondary to Coumadin. 3. Coronary artery disease, status post coronary artery bypass grafting. 4. Exertional dyspnea. 5. Permanent atrial fibrillation. 6. History of permanent pacemaker implantation. 7. Obstructive sleep apnea. 8. Hyperlipidemia. 9. Obesity. inr 1.7 will hold Coumadin today as well maybe restarts tomorrow if no bleeding if ok with ent claritin we did discuss combination of Coumadin adn indocin and it side effect he indicated he has been on this for years and this seems the only medication that provides him with soem releif but he is not sure since he has nto stopped takign it for years i have asked him to discuss with his internits in future Subjective Cardiovascular: Denies: chest pain, irregular heart rate, lightheadedness, palpitations Respiratory: Denies: shortness of breath Gastrointestinal/Abdominal: Denies: abdominal pain Genitourinary: Denies: burning Subjective allergies request resumptiooo of home otc allergy tablet no problem with walkign in halls Objective Last 24 Hour Vital Signs Date Time Temp Pulse Resp B/P (MAP) Pulse Ox O2 Delivery O2 Flow Rate FiO2 10/22/17 16:28 98.0 72 17 132/75 98 Room Air 98.0 10/22/17 12:57 98.2 70 18 144/95 Room Air 98.2 10/22/17 08:44 98.2 70 18 149/84 Room Air 98.2 10/22/17 08:07 79 138/92 10/22/17 04:24 97 Room Air 10/22/17 04:24 98.3 79 19 138/92 97 98.3 10/22/17 00:36 98.1 67 19 133/72 97 98.1 10/22/17 00:36 97 Room Air 10/21/17 21:38 98.2 71 18 142/77 97 98.2 10/21/17 21:38 97 Room Air General Appearance: no apparent distress, alert Neck: no JVD Cardiovascular: irregularly irregular Respiratory/Chest: lungs clear Abdomen: normal bowel sounds, non tender, soft Extremities: no swelling Intake and Output 10/21/17 10/22/17 19:00 07:00 Intake Total 650 ml 480 ml Balance 650 ml 480 ml Intake Oral 650 ml 480 ml # Voids 2 3 Laboratory Tests Test 10/22/17 07:38 White Blood Count 11.4 K/UL (4.8-10.8) H Red Blood Count 4.79 M/UL (4.70-6.10) Hemoglobin 14.7 G/DL (14.2-18.0) Hematocrit 41.8 % (42.0-52.0) L Mean Corpuscular Volume 87 FL (80-99) Mean Corpuscular Hemoglobin 30.7 PG (27.0-31.0) Mean Corpuscular Hemoglobin Concent 35.2 G/DL (32.0-36.0) Red Cell Distribution Width 11.8 % (11.6-14.8) Platelet Count 86 K/UL (150-450) L Mean Platelet Volume 9.2 FL (6.5-10.1) Neutrophils (%) (Auto) % (45.0-75.0) Lymphocytes (%) (Auto) % (20.0-45.0) Monocytes (%) (Auto) % (1.0-10.0) Eosinophils (%) (Auto) % (0.0-3.0) Basophils (%) (Auto) % (0.0-2.0) Differential Total Cells Counted 100 Neutrophils % (Manual) 80 % (45-75) H Lymphocytes % (Manual) 13 % (20-45) L Monocytes % (Manual) 5 % (1-10) Eosinophils % (Manual) 1 % (0-3) Basophils % (Manual) 1 % (0-2) Band Neutrophils 0 % (0-8) Platelet Estimate Decreased L Platelet Morphology Normal Red Blood Cell Morphology Normal Prothrombin Time 18.4 SEC (9.30-11.50) H Prothromb Time International Ratio 1.7 (0.9-1.1) H Activated Partial Thromboplast Time 32 SEC (23-33) Sodium Level 137 MMOL/L (136-145) Potassium Level 3.6 MMOL/L (3.5-5.1) Chloride Level 101 MMOL/L (98-107) Carbon Dioxide Level 27 MMOL/L (21-32) Anion Gap 9 mmol/L (5-15) Blood Urea Nitrogen 24 mg/dL (7-18) H Creatinine 0.8 MG/DL (0.55-1.30) Estimat Glomerular Filtration Rate > 60 mL/min (>60) Glucose Level 180 MG/DL (74-106) H Calcium Level 9.0 MG/DL (8.5-10.1) Total Bilirubin 0.9 MG/DL (0.2-1.0) Aspartate Amino Transf (AST/SGOT) 22 U/L (15-37) Alanine Aminotransferase (ALT/SGPT) 29 U/L (12-78) Alkaline Phosphatase 71 U/L (46-116) Total Protein 7.7 G/DL (6.4-8.2) Albumin 3.9 G/DL (3.4-5.0) Globulin 3.8 g/dL Albumin/Globulin Ratio 1.0 (1.0-2.7) SABRINA MORRELL October 22, 2017 19:23
[2017-10-22 20:00] VITALS: BP 139/84
[2017-10-22] MEDS: Atorvastatin 20mg tab ORAL SCH (21:50)
[2017-10-22] MEDS: Repaglinide 1mg tab ORAL SCH (21:50)
[2017-10-22] MEDS: Zolpidem 5mg tab ORAL PRN ×2 (23:25→23:26)
[2017-10-23] VITALS (7 sets, daily range): BP systolic 133–156; BP diastolic 72–90
[2017-10-23] MEDS: Glimepiride 1mg tab ORAL SCH (06:07)
[2017-10-23] MEDS: NovoLOG Insulin Flexpen SUBQ SCH ×4 (06:13→22:02)
[2017-10-23 07:59] LABS: INR 1.4 (0.9-1.1)
[2017-10-23 08:02] LABS: HEMATOCRIT 42.9 % (42.0-52.0); HEMOGLOBIN 14.8 G/DL (14.2-18.0); MEAN CORPUSCULAR VOLUME 87 FL (80-99); PLATELET COUNT 87 K/UL (150-450); RED BLOOD COUNT 4.93 M/UL (4.70-6.10); WHITE BLOOD COUNT 10.3 K/UL (4.8-10.8)
[2017-10-23 08:17] LABS: ANION GAP 9 mmol/L (5-15); BLOOD UREA NITROGEN 19 mg/dL (7-18); CALCIUM 9.1 MG/DL (8.5-10.1); CARBON DIOXIDE 25 MMOL/L (21-32); CHLORIDE 102 MMOL/L (98-107); CREATININE 0.9 MG/DL (0.55-1.30); POTASSIUM 3.7 MMOL/L (3.5-5.1); SODIUM 136 MMOL/L (136-145)
--- NOTE | 2017-10-23 08:52 | General Progress Note ---
Assessment/Plan Problem List: (1) Epistaxis ICD Codes: R04.0 - Epistaxis SNOMED: 659179800 Status: doing well Assessment/Plan 1. Epistaxis is controlled at this time. 2. Rhinorocet removed 3. Pt to see me in my office 7-10 days: I have given him a card and instructions. Subjective Date patient seen: October 23, 2017 Time patient seen: 08:10 Constitutional: Reports: no symptoms HEENT: Reports: other - No epistaxis even with Rhinorocet cuffs down overnight. Cardiovascular: Reports: no symptoms Gastrointestinal/Abdominal: Reports: no symptoms Genitourinary: Reports: no symptoms Endocrine: Reports: no symptoms Allergies: Coded Allergies: SULFA (SULFONAMIDE ANTIBIOTICS) (Verified Allergy, Unknown, 10/17/17) All Systems: reviewed and negative except above Subjective No bleeding since I saw him yesterday for initial consult. Objective Last 24 Hour Vital Signs Date Time Temp Pulse Resp B/P (MAP) Pulse Ox O2 Delivery O2 Flow Rate FiO2 10/23/17 04:00 97.8 83 18 156/89 95 97.8 10/23/17 00:00 97.9 85 19 152/86 99 97.9 10/22/17 20:00 97.9 76 18 139/84 97 97.9 10/22/17 16:28 98.0 72 17 132/75 98 Room Air 98.0 10/22/17 12:57 98.2 70 18 144/95 Room Air 98.2 Intake and Output 10/22/17 10/23/17 19:00 07:00 Intake Total 360 ml Output Total 600 ml Balance -600 ml 360 ml Intake Oral 360 ml Output Urine Total 600 ml # Voids 3 Laboratory Tests 10/23/17 06:00: White Blood Count 10.3, Red Blood Count 4.93, Hemoglobin 14.8, Hematocrit 42.9, Mean Corpuscular Volume 87, Mean Corpuscular Hemoglobin 29.9, Mean Corpuscular Hemoglobin Concent 34.4, Red Cell Distribution Width 12.0, Platelet Count 87L, Mean Platelet Volume 9.1, Neutrophils (%) (Auto) , Lymphocytes (%) (Auto) , Monocytes (%) (Auto) , Eosinophils (%) (Auto) , Basophils (%) (Auto) , Neutrophils % (Manual) [Pending], Lymphocytes % (Manual) [Pending], Platelet Estimate [Pending], Platelet Morphology [Pending], Prothrombin Time 15.2H, Prothromb Time International Ratio 1.4H, Sodium Level 136, Potassium Level 3.7, Chloride Level 102, Carbon Dioxide Level 25, Anion Gap 9, Blood Urea Nitrogen 19H, Creatinine 0.9, Estimat Glomerular Filtration Rate > 60, Glucose Level 180H , Calcium Level 9.1 Height (Feet): 6 Height (Inches): 6.00 Weight (Pounds): 280 General Appearance: no apparent distress EENT: pharynx normal, other - Rhinofrocket removed left nostril, once done minimal dried blood, no active bleeding. ALso rechecked 35 minutes later, same finding. 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
[2017-10-23] MEDS: Allopurinol 100mg Tab ORAL SCH (09:01)
[2017-10-23] MEDS: Furosemide 80mg tab ORAL SCH (09:01)
[2017-10-23] MEDS: Indomethacin 25mg cap ORAL SCH (09:01)
--- NOTE | 2017-10-23 09:24 | Pulmonology Progress Note ---
Assessment/Plan Assessment/Plan IMPRESSION: 1. Epistaxis. Resolved with posterior packing. Now packing removed. 2. Hypertension. 3. Diabetes mellitus. 4. Chronic Coumadin usage. Will resume today 5. Permanent pacemaker. 6. Previous CABG. 7. Atrial fibrillation. 8. SAMIRA. DISCUSSION: Resume Coumadin ENt and Cardiology following Ambien for Insomnia Nocturnal CPAP for SAMIRA Accu-Cheks and sliding scale. SCDs. I will follow as commercial singer DC planning for home in AM Subjective Interval Events: Nasal packing removed; feeling better Constitutional: Reports: no symptoms HEENT: Repors: no symptoms Respiratory: Reports: no symptoms Cardiovascular: Reports: no symptoms Gastrointestinal/Abdominal: Reports: no symptoms Allergies: Coded Allergies: SULFA (SULFONAMIDE ANTIBIOTICS) (Verified Allergy, Unknown, 10/17/17) Objective Last 24 Hour Vital Signs Date Time Temp Pulse Resp B/P (MAP) Pulse Ox O2 Delivery O2 Flow Rate FiO2 10/23/17 09:01 83 156/89 10/23/17 08:00 97.8 83 19 145/90 97 97.8 10/23/17 04:00 97.8 83 18 156/89 95 97.8 10/23/17 00:00 97.9 85 19 152/86 99 97.9 10/22/17 20:00 97.9 76 18 139/84 97 97.9 10/22/17 16:28 98.0 72 17 132/75 98 Room Air 98.0 10/22/17 12:57 98.2 70 18 144/95 Room Air 98.2 Intake and Output 10/22/17 10/23/17 19:00 07:00 Intake Total 360 ml Output Total 600 ml Balance -600 ml 360 ml Intake Oral 360 ml Output Urine Total 600 ml # Voids 3 General Appearance: no acute distress HEENT: normocephalic Respiratory/Chest: chest wall non-tender, lungs clear, normal breath sounds Cardiovascular: normal rate Abdomen: normal bowel sounds Laboratory Tests 10/23/17 06:00: White Blood Count 10.3, Red Blood Count 4.93, Hemoglobin 14.8, Hematocrit 42.9, Mean Corpuscular Volume 87, Mean Corpuscular Hemoglobin 29.9, Mean Corpuscular Hemoglobin Concent 34.4, Red Cell Distribution Width 12.0, Platelet Count 87L, Mean Platelet Volume 9.1, Neutrophils (%) (Auto) , Lymphocytes (%) (Auto) , Monocytes (%) (Auto) , Eosinophils (%) (Auto) , Basophils (%) (Auto) , Neutrophils % (Manual) [Pending], Lymphocytes % (Manual) [Pending], Platelet Estimate [Pending], Platelet Morphology [Pending], Prothrombin Time 15.2H, Prothromb Time International Ratio 1.4H, Sodium Level 136, Potassium Level 3.7, Chloride Level 102, Carbon Dioxide Level 25, Anion Gap 9, Blood Urea Nitrogen 19H, Creatinine 0.9, Estimat Glomerular Filtration Rate > 60, Glucose Level 180H , Calcium Level 9.1 Current Medications Medications (Trade) Dose Ordered Sig/Riccardo Route PRN Reason Start Time Stop Time Status Last Admin Dose Admin Allopurinol (Zyloprim) 100 mg DAILY ORAL 10/21/17 15:00 11/20/17 14:59 10/23/17 09:01 Atorvastatin Calcium (Lipitor) 20 mg BEDTIME ORAL 10/21/17 21:00 11/20/17 20:59 10/22/17 21:50 Dextrose (Dextrose 50%) 25 ml STAT PRN IV Hypoglycemia 10/21/17 10:30 11/20/17 10:29 Dextrose (Dextrose 50%) 50 ml STAT PRN IV Hypoglycemia 10/21/17 10:30 11/20/17 10:29 Furosemide (Lasix) 80 mg DAILY ORAL 10/21/17 16:00 11/20/17 15:59 10/23/17 09:01 Glimepiride (Amaryl) 5 mg ACBREAKFAST ORAL 10/22/17 06:30 11/21/17 06:29 10/23/17 06:07 Indomethacin (Indocin) 25 mg DAILY ORAL 10/21/17 15:00 11/20/17 14:59 10/23/17 09:01 Insulin Aspart (NovoLOG) BEFORE MEALS AND HS SUBQ 10/21/17 11:30 11/20/17 11:29 10/23/17 06:13 Metoprolol Tartrate (Lopressor) 100 mg DAILY ORAL 10/21/17 15:00 11/20/17 14:59 10/23/17 09:01 Potassium Chloride (K-Dur) 20 meq DAILY ORAL 10/22/17 09:00 11/21/17 08:59 10/23/17 09:01 Repaglinide (Prandin) 2 mg BIOTEC ORAL 10/21/17 21:00 11/20/17 20:59 10/22/17 21:50 Zolpidem Tartrate (Ambien) 5 mg HSPRN PRN ORAL Insomnia 10/22/17 13:45 10/28/17 21:14 10/22/17 23:25 Zolpidem Tartrate (Ambien) 5 mg HSPRN PRN ORAL IF 5MG INEFFECTIVE 10/22/17 14:30 10/29/17 14:29 10/22/17 23:26 Neri Encinas MD October 23, 2017 09:24
[2017-10-23] MEDS ORDERED: Warfarin Sodium 5mg ORAL SCH (17:00)
--- NOTE | 2017-10-23 19:09 | Cardiology Progress Note ---
Assessment/Plan Assessment/Plan 1. Recurrent epistaxis. 2. Coagulopathy secondary to Coumadin. 3. Coronary artery disease, status post coronary artery bypass grafting. 4. Exertional dyspnea. 5. Permanent atrial fibrillation. 6. History of permanent pacemaker implantation. 7. Obstructive sleep apnea. 8. Hyperlipidemia. 9. Obesity. inr 1.5 couamdin resumed t claritin we did discuss combination of Coumadin adn indocin and it side effect he indicated he has been on this for years and this seems the only medication that provides him with soem releif but he is not sure since he has nto stopped takign it for years i have asked him to discuss with his internits in future plt are low pt to make sure fu with plt count on dc Subjective Cardiovascular: Denies: chest pain, lightheadedness, palpitations Respiratory: Denies: shortness of breath Gastrointestinal/Abdominal: Denies: black stools Genitourinary: Denies: discharge Objective Last 24 Hour Vital Signs Date Time Temp Pulse Resp B/P (MAP) Pulse Ox O2 Delivery O2 Flow Rate FiO2 10/23/17 16:00 97.4 77 20 139/87 99 97.4 10/23/17 12:00 97.4 68 20 140/88 98 97.4 10/23/17 09:01 83 156/89 10/23/17 08:00 97.8 83 19 145/90 97 97.8 10/23/17 04:00 97.8 83 18 156/89 95 97.8 10/23/17 00:00 97.9 85 19 152/86 99 97.9 10/22/17 20:00 97.9 76 18 139/84 97 97.9 General Appearance: no apparent distress, alert Neck: supple Cardiovascular: irregularly irregular Respiratory/Chest: lungs clear, normal breath sounds Abdomen: normal bowel sounds, non tender, soft Extremities: trace edema - chronic venous stasis changes Intake and Output 10/22/17 10/23/17 19:00 07:00 Intake Total 360 ml Output Total 600 ml Balance -600 ml 360 ml Intake Oral 360 ml Output Urine Total 600 ml # Voids 3 Laboratory Tests Test 10/23/17 06:00 White Blood Count 10.3 K/UL (4.8-10.8) Red Blood Count 4.93 M/UL (4.70-6.10) Hemoglobin 14.8 G/DL (14.2-18.0) Hematocrit 42.9 % (42.0-52.0) Mean Corpuscular Volume 87 FL (80-99) Mean Corpuscular Hemoglobin 29.9 PG (27.0-31.0) Mean Corpuscular Hemoglobin Concent 34.4 G/DL (32.0-36.0) Red Cell Distribution Width 12.0 % (11.6-14.8) Platelet Count 87 K/UL (150-450) L Mean Platelet Volume 9.1 FL (6.5-10.1) Neutrophils (%) (Auto) % (45.0-75.0) Lymphocytes (%) (Auto) % (20.0-45.0) Monocytes (%) (Auto) % (1.0-10.0) Eosinophils (%) (Auto) % (0.0-3.0) Basophils (%) (Auto) % (0.0-2.0) Differential Total Cells Counted 100 Neutrophils % (Manual) 77 % (45-75) H Lymphocytes % (Manual) 18 % (20-45) L Monocytes % (Manual) 4 % (1-10) Eosinophils % (Manual) 1 % (0-3) Basophils % (Manual) 0 % (0-2) Band Neutrophils 0 % (0-8) Platelet Estimate Decreased L Platelet Morphology Normal Red Blood Cell Morphology Normal Prothrombin Time 15.2 SEC (9.30-11.50) H Prothromb Time International Ratio 1.4 (0.9-1.1) H Sodium Level 136 MMOL/L (136-145) Potassium Level 3.7 MMOL/L (3.5-5.1) Chloride Level 102 MMOL/L (98-107) Carbon Dioxide Level 25 MMOL/L (21-32) Anion Gap 9 mmol/L (5-15) Blood Urea Nitrogen 19 mg/dL (7-18) H Creatinine 0.9 MG/DL (0.55-1.30) Estimat Glomerular Filtration Rate > 60 mL/min (>60) Glucose Level 180 MG/DL (74-106) H Calcium Level 9.1 MG/DL (8.5-10.1) Ludwig Landrum MD October 23, 2017 19:09
[2017-10-23] MEDS: Repaglinide 1mg tab ORAL SCH (22:00)
[2017-10-23] MEDS: Atorvastatin 20mg tab ORAL SCH (22:00)
[2017-10-23] MEDS: Zolpidem 5mg tab ORAL PRN ×2 (22:00)
[2017-10-24] MEDS: Zolpidem 5mg tab ORAL PRN ×2 (00:15)
[2017-10-24 00:32] VITALS: BP 117/68
[2017-10-24 04:00] VITALS: BP 135/75
[2017-10-24] MEDS: Glimepiride 1mg tab ORAL SCH (06:21)
[2017-10-24] MEDS: NovoLOG Insulin Flexpen SUBQ SCH ×2 (06:23→11:31)
[2017-10-24 07:32] LABS: INR 1.2 (0.9-1.1)
--- NOTE | 2017-10-24 08:18 | Pulmonology Progress Note ---
Assessment/Plan Assessment/Plan IMPRESSION: 1. Epistaxis. Resolved with posterior packing. Now packing removed. 2. Hypertension. 3. Diabetes mellitus. 4. Chronic Coumadin usage. Continue; last INR 1.2 5. Permanent pacemaker. 6. Previous CABG. 7. Atrial fibrillation. 8. SAMIRA. DISCUSSION: Resumed Coumadin ENt and Cardiology following Ambien for Insomnia Nocturnal CPAP for SAMIAR Accu-Cheks and sliding scale. SCDs. I will follow as director of provider relations DC planning for home today ENT to visit pt today around 1 pm Subjective Interval Events: Claims he is bleeding but no blood seen Constitutional: Reports: no symptoms HEENT: Repors: no symptoms Respiratory: Reports: no symptoms Cardiovascular: Reports: no symptoms Gastrointestinal/Abdominal: Reports: no symptoms Allergies: Coded Allergies: SULFA (SULFONAMIDE ANTIBIOTICS) (Verified Allergy, Unknown, 10/17/17) Objective Last 24 Hour Vital Signs Date Time Temp Pulse Resp B/P (MAP) Pulse Ox O2 Delivery O2 Flow Rate FiO2 10/24/17 04:00 97.3 75 20 135/75 99 Room Air 97.3 10/24/17 00:32 96.8 98 20 117/68 96 Room Air 96.8 10/23/17 21:32 98.6 72 20 133/72 96 Room Air 98.6 10/23/17 20:00 98.6 72 20 133/72 96 Room Air 98.6 10/23/17 16:00 97.4 77 20 139/87 99 97.4 10/23/17 12:00 97.4 68 20 140/88 98 97.4 10/23/17 09:01 83 156/89 Intake and Output 10/23/17 10/24/17 19:00 07:00 Intake Total 1200 ml Balance 1200 ml Intake Oral 1200 ml # Voids 2 2 General Appearance: no acute distress HEENT: normocephalic Respiratory/Chest: chest wall non-tender, lungs clear Cardiovascular: normal peripheral pulses Laboratory Tests 10/24/17 05:50: Prothrombin Time 12.3H, Prothromb Time International Ratio 1.2H Current Medications Medications (Trade) Dose Ordered Sig/Riccardo Route PRN Reason Start Time Stop Time Status Last Admin Dose Admin Allopurinol (Zyloprim) 100 mg DAILY ORAL 10/21/17 15:00 11/20/17 14:59 10/23/17 09:01 Atorvastatin Calcium (Lipitor) 20 mg BEDTIME ORAL 10/21/17 21:00 11/20/17 20:59 10/23/17 22:00 Dextrose (Dextrose 50%) 25 ml STAT PRN IV Hypoglycemia 10/21/17 10:30 11/20/17 10:29 Dextrose (Dextrose 50%) 50 ml STAT PRN IV Hypoglycemia 10/21/17 10:30 11/20/17 10:29 Furosemide (Lasix) 80 mg DAILY ORAL 10/21/17 16:00 11/20/17 15:59 10/23/17 09:01 Glimepiride (Amaryl) 5 mg ACBREAKFAST ORAL 10/22/17 06:30 11/21/17 06:29 10/24/17 06:21 Insulin Aspart (NovoLOG) BEFORE MEALS AND HS SUBQ 10/21/17 11:30 11/20/17 11:29 10/24/17 06:23 Metoprolol Tartrate (Lopressor) 100 mg DAILY ORAL 10/21/17 15:00 11/20/17 14:59 10/23/17 09:01 Potassium Chloride (K-Dur) 20 meq DAILY ORAL 10/22/17 09:00 11/21/17 08:59 10/23/17 09:01 Repaglinide (Prandin) 2 mg BIOTEC ORAL 10/21/17 21:00 11/20/17 20:59 10/23/17 22:00 Warfarin Sodium (Coumadin) 5 mg DAILY@17 ORAL 10/23/17 17:00 10/28/17 16:59 10/23/17 17:20 Zolpidem Tartrate (Ambien) 5 mg HSPRN PRN ORAL Insomnia 10/22/17 13:45 10/28/17 21:14 10/24/17 00:15 Zolpidem Tartrate (Ambien) 5 mg HSPRN PRN ORAL IF 5MG INEFFECTIVE 10/22/17 14:30 10/29/17 14:29 10/24/17 00:15 Neri Encinas MD October 24, 2017 08:18
[2017-10-24] MEDS: Allopurinol 100mg Tab ORAL SCH (08:31)
[2017-10-24] MEDS: Furosemide 80mg tab ORAL SCH (08:31)
[2017-10-24 08:34] VITALS: BP 157/87
[2017-10-24 11:58] VITALS: BP 125/80
--- NOTE | 2017-10-27 09:00 | Discharge Summary ---
Discharge Summary Discharge Summary Discharge Summary DATE OF ADMISSION: 10/21/2017 DATE OF DISCHARGE: 10/24/2017 REASON FOR ADMISSION: 66 years old male with past medical history significant for atrial fibrillation , CAD, s/p CABG, hypertension, pacemaker, diabetes mellitus, chronic Coumadin use, presented to emergency department with nose bleeding. Initially in emergency department patient was given lidocaine and epinephrine. Small lesion was catheterized , however all these measures did not control bleeding. Patient was packed with a Rhino rocket . Patient was still oozing. Tranexamic acid x 1 given via IVPB. Initial antibiotic given 1 in emergency department. INR 2.8. Hemoglobin and hematocrit stable. Patient required admission. ENT Specialist was contacted through the emergency department. Patient was admitted with diagnosis of epistaxis, hypertension, diabetes, chronic Coumadin usage, permanent pacemaker, atrial fibrillation, obstructive sleep apnea. CONSULTANTS: education rn Dr. Landrum ENT specialist Dr. Ballesteros [facility] COURSE: Patient was admitted. ENT specialist seen and evaluated the patient. Initially recommended to keep the packing in. ENT recommended to leave Rhino rocket inside his left nostril with plan over the next few days to decrease all of the water and discontinue packing when epistaxis controlled. Coumadin was on hold. INR was closely monitored. INR was decreasing. Next day 5 mL from Rhino Rocket was removed. No bleeding after 30 minutes noted from nose or oropharynx. Epistaxis was controlled. The next day when ENT seen the patient, epistaxis was controlled. Rhino rocket was removed. Patient to follow-up with ENT specialist in 7-10 days. Discharge instruction provided. At the same time, education rn closely followed. Office Machine Punch Operator agreed to keep patient off anticoagulation for few days to allow healing the area of epistaxis. EKG revealed atrial fibrillation with V pacing. Troponin was negative. Patient was restarted on Coumadin in 2 days, when epistaxis was controlled, and ENT cleared for restart of anticoagulation. Blood sugar was managed with the current regimen and remained stable. Home medications resumed , including beta jorge, diuretic ,statin, Prandin, allopurinol. Pain management was addressed. Nocturnal CPAP for obstructive sleep apnea provided. Supplemental oxygen provided as needed to keep pulse oximetry above 92%. Sequential compression device was provided. Patient was stable for discharge with outpatient follow-up with ENT and primary care provider FINAL DIAGNOSES: Recurrent epistaxis, resolved Hypertension Diabetes mellitus Chronic Coumadin usage Permanent pacemaker Coronary artery disease, status post CABG Permanent atrial fibrillation Obstructive sleep apnea Hyperlipidemia Obesity DISCHARGE MEDICATIONS: See Medication Reconciliation list. DISCHARGE INSTRUCTIONS: Patient to follow-up with the ENT as recommended by ENT. Patient to follow-up with primary care provider. I have been assigned to dictate discharge summary for this account. I was not involved in the patient's management. Anat Walker NP October 27, 2017 09:00
== END 2017-10-24 13:30 | disposition home or self-care (01) | DRG 151 ==
LOC: EMR 21:29 → 4W 10-21 00:03 → UNDOADMIN 10-21 00:03 → EDBEDREQ 10-21 00:33
PROC: 2Y41X5Z Packing of Nasal Region using Packing Material (ICD-10-PCS; principal; 2017-10-21)
DX: R04.0 Epistaxis (principal); D68.32 Hemorrhagic disorder due to extrinsic circulating anticoagulants; T45.515A Adverse effect of anticoagulants, initial encounter; G47.33 Obstructive sleep apnea (adult) (pediatric); I10 Essential (primary) hypertension; E11.9 Type 2 diabetes mellitus without complications; Z95.0 Presence of cardiac pacemaker; I48.2 Chronic atrial fibrillation; E78.5 Hyperlipidemia, unspecified; E66.9 Obesity, unspecified; I25.10 Atherosclerotic heart disease of native coronary artery without angina pectoris; Z95.1 Presence of aortocoronary bypass graft; M10.9 Gout, unspecified; Z88.2 Allergy status to sulfonamides; F17.200 Nicotine dependence, unspecified, uncomplicated
CPT/HCPCS: 36415; 80048; 80053; 81003; 82550; 82962; 84484; 85007; 85025; 85610; 85730; 86850; 86900; 86901; 93005; 99283; 99284; J1815; J8499

== ENCOUNTER 2018-02-05 16:32 | Inpatient (IN) | payer MEDICARE, BC ==
[~2018-02-05] VITALS: Ht 198.1 cm; Wt 127.0 kg
[~2018-02-05 16:32] MED LIST changes: +AMOXICILLIN500 MG ORAL; +INDOCIN25 MG ORAL; +METOPROLOL TAR100 M1 ORAL; +NORCO 5-325 TA1 EACH ORAL
[2018-02-05 17:07] VITALS: BP 131/88
[2018-02-05] MEDS ORDERED: Sodium Chloride 500ML 500 ML IV ONE (17:10)
[2018-02-05 17:45] LABS: BASOPHILS % (AUTO) 1.7 % (0.0-2.0); EOSINOPHILS % (AUTO) 3.5 % (0.0-3.0); HEMATOCRIT 43.9 % (42.0-52.0); HEMOGLOBIN 15.9 G/DL (14.2-18.0); LYMPHOCYTES % (AUTO) 16.7 % (20.0-45.0); MEAN CORPUSCULAR VOLUME 83 FL (80-99); MONOCYTES % (AUTO) 6.7 % (1.0-10.0); NEUTROPHILS % (AUTO) 71.4 % (45.0-75.0); PLATELET COUNT 116 K/UL (150-450); RED BLOOD COUNT 5.31 M/UL (4.70-6.10); RED CELL DISTRIBUTION WIDTH 11.8 % (11.6-14.8); WHITE BLOOD COUNT 11.2 K/UL (4.8-10.8)
[2018-02-05 17:52] LABS: ANION GAP 9 mmol/L (5-15); BLOOD UREA NITROGEN 27 mg/dL (7-18); CALCIUM 9.7 MG/DL (8.5-10.1); CARBON DIOXIDE 29 MMOL/L (21-32); CHLORIDE 100 MMOL/L (98-107); POTASSIUM 4.2 MMOL/L (3.5-5.1); SODIUM 138 MMOL/L (136-145)
[2018-02-05 18:00] LABS: INR 1.5 (0.9-1.1)
[2018-02-05 18:07] LABS: ALANINE AMINOTRANSFERASE 28 U/L (12-78); ALBUMIN 4.1 G/DL (3.4-5.0); ALBUMIN/GLOBULIN RATIO 1.1 (1.0-2.7); ALKALINE PHOSPHATASE 87 U/L (46-116); ASPARTATE AMINO TRANSFERASE 25 U/L (15-37); BILIRUBIN,TOTAL 0.9 MG/DL (0.2-1.0); CKMB 4.9 NG/ML (0.0-3.6); CREATINE KINASE 164 U/L (26-308)
[2018-02-05] MEDS ORDERED: Lidocaine 1% 10mg/ml/EPI 0.01mg/ml 50ml INJ ONE (18:19)
[2018-02-05] MEDS ORDERED: Lidocaine 2% 20mg/ml/EPI 0.01mg/ml 20ml IV ONE (18:30)
[2018-02-05] MEDS ORDERED: Lidocaine 1% 10mg/ml/Epi 0.005mg/ml 30ml vial INJ ONE (18:30)
[2018-02-05 19:15] VITALS: BP 146/78
[2018-02-05 20:00] VITALS: BP 139/85
--- NOTE | 2018-02-05 21:28 | Emergency Room Report ---
History of Present Illness General Chief Complaint: Nosebleed Source: Patient Present Illness HPI 67-year-old male presents ED for evaluation. Patient presenting with epistaxis since this morning. Started during acupuncture. States he was laying prone when the bleeding started. History of A. fib and is on Coumadin. States he placed packing in his nose but states it is still bleeding. Denies any pain. Denies any shortness of breath or difficulty breathing. No other aggravating relieving factors. Denies any other associated symptoms Allergies: Coded Allergies: SULFA (SULFONAMIDE ANTIBIOTICS) (Verified Allergy, Unknown, 10/17/17) Patient History Past Medical History: DM, HTN, AFib Past Surgical History: pacemaker Pertinent Family History: none Social History: Denies: smoking, alcohol use, drug use Immunizations: UTD Reviewed Nursing Documentation: PMH: Agreed; PSxH: Agreed Nursing Documentation-PMH Past Medical History: No History, Except For Hx Cardiac Problems: Yes - atrial fibrillation Hx Hypertension: Yes Hx Pacemaker: Yes Hx Asthma: No Hx COPD: No Hx Diabetes: Yes Hx Cancer: No Hx Gastrointestinal Problems: No Hx Dialysis: No History Of Psychiatric Problem: No Hx Neurological Problems: No Hx Cerebrovascular Accident: No Hx Seizures: No Hx Neurologic Surgery: No Hx Brain Shunt: No Review of Systems All Other Systems: negative except mentioned in HPI Physical Exam Vital Signs Date Time Temp Pulse Resp B/P (MAP) Pulse Ox O2 Delivery O2 Flow Rate FiO2 02/05/18 16:46 98.1 81 14 132/89 94 Room Air 98.1 Sp02 EP Interpretation: reviewed, normal General Appearance: no apparent distress, alert, GCS 15, non-toxic Head: normocephalic, atraumatic Eyes: bilateral eye normal inspection, bilateral eye PERRL ENT: hearing grossly normal, normal pharynx, no angioedema, normal voice, other - active bleeding from L nares Neck: full range of motion, supple/symm/no masses Respiratory: chest non-tender, lungs clear, normal breath sounds, speaking full sentences Cardiovascular #1: regular rate, rhythm, no edema Cardiovascular #2: 2+ carotid (R), 2+ carotid (L), 2+ radial (R), 2+ radial (L) , 2+ dorsalis pedis (R), 2+ dorsalis pedis (L) Gastrointestinal: normal bowel sounds, non tender, soft, non-distended, no guarding, no rebound Rectal: deferred Genitourinary: normal inspection, no CVA tenderness Musculoskeletal: back normal, gait/station normal, normal range of motion, non- tender Neurologic: alert, oriented x3, responsive, motor strength/tone normal, sensory intact, speech normal Psychiatric: judgement/insight normal, memory normal, mood/affect normal, no suicidal/homicidal ideation Reflexes: 3+ bicep (R), 3+ bicep (L), 3+ tricep (R), 3+ tricep (L), 3+ knee (R) , 3+ knee (L) Skin: normal color, no rash, warm/dry, well hydrated Lymphatic: no adenopathy Medical Decision Making Diagnostic Impression: Primary Impression: Severe epistaxis ER Course 67-year-old male presents to ED with epistaxis from L nostril. No trauma. on coumadin Differential-anterior epistaxis, posterior epistaxis, coagulopathy Patient placed on stretcher. After initial history, physical exam reveals elderly male in no acute distress. Patient is actively bleeding from the L nostril. I am unable to identify whether the bleeding his anterior versus posterior as the bleeding is profuse. Patient is protecting her airway. Initially 5.5 cm Rhino Rocket placed, soaked in lidocaine/epinephrine. On reassessment patient states they're still bleeding down the back of his throat. I placed a 7.5 cm Rhino Rocket soaked in lidocaine/epinephrine Labs-no leukocytosis, hemoglobin/hematocrit stable, electrolytes ok, INR 1.5 EKG - paced rhythm On reassessment bleeding appears to be controlled. Protecting airway. Patient will be admitted given coagulopathy history. ENT unavailable. Dr. Encinas agrees to admit Diagnoses- severe epistaxis Admitted to telemetry in serious condition Labs Test 02/05/18 17:26 White Blood Count 11.2 K/UL (4.8-10.8) Red Blood Count 5.31 M/UL (4.70-6.10) Hemoglobin 15.9 G/DL (14.2-18.0) Hematocrit 43.9 % (42.0-52.0) Mean Corpuscular Volume 83 FL (80-99) Mean Corpuscular Hemoglobin 30.0 PG (27.0-31.0) Mean Corpuscular Hemoglobin Concent 36.2 G/DL (32.0-36.0) Red Cell Distribution Width 11.8 % (11.6-14.8) Platelet Count 116 K/UL (150-450) Mean Platelet Volume 9.9 FL (6.5-10.1) Neutrophils (%) (Auto) 71.4 % (45.0-75.0) Lymphocytes (%) (Auto) 16.7 % (20.0-45.0) Monocytes (%) (Auto) 6.7 % (1.0-10.0) Eosinophils (%) (Auto) 3.5 % (0.0-3.0) Basophils (%) (Auto) 1.7 % (0.0-2.0) Prothrombin Time 15.3 SEC (9.30-11.50) Prothromb Time International Ratio 1.5 (0.9-1.1) Activated Partial Thromboplast Time 31 SEC (23-33) Sodium Level 138 MMOL/L (136-145) Potassium Level 4.2 MMOL/L (3.5-5.1) Chloride Level 100 MMOL/L (98-107) Carbon Dioxide Level 29 MMOL/L (21-32) Anion Gap 9 mmol/L (5-15) Blood Urea Nitrogen 27 mg/dL (7-18) Creatinine 1.0 MG/DL (0.55-1.30) Estimat Glomerular Filtration Rate > 60 mL/min (>60) Glucose Level 129 MG/DL (74-106) Calcium Level 9.7 MG/DL (8.5-10.1) Total Bilirubin 0.9 MG/DL (0.2-1.0) Aspartate Amino Transf (AST/SGOT) 25 U/L (15-37) Alanine Aminotransferase (ALT/SGPT) 28 U/L (12-78) Alkaline Phosphatase 87 U/L (46-116) Total Creatine Kinase 164 U/L (26-308) Creatine Kinase MB 4.9 NG/ML (0.0-3.6) Creatine Kinase MB Relative Index 2.9 Troponin I 0.004 ng/mL (0.000-0.056) Total Protein 8.0 G/DL (6.4-8.2) Albumin 4.1 G/DL (3.4-5.0) Globulin 3.9 g/dL Albumin/Globulin Ratio 1.1 (1.0-2.7) EKG Diagnostic Results Rate: normal Rhythm: other - ventircular paced ST Segments: no acute changes ASA given to the pt in ED: No Rhythm Strip Diag. Results EP Interpretation: yes Rhythm: no PVC's, no ectopy Last Vital Signs Date Time Temp Pulse Resp B/P (MAP) Pulse Ox O2 Delivery O2 Flow Rate FiO2 02/05/18 20:00 02/05/18 19:16 98 Room Air Status: improved Disposition: ADMITTED INPATIENT Condition: Serious Referrals: Neri Encinas MD (PCP) Trevor Martin MD Feb 05, 2018 21:28
[2018-02-05] MEDS ORDERED: Zolpidem 5mg tab ORAL PRN (22:30)
[2018-02-05] MEDS ORDERED: Norco 5mg/325mg tab ORAL PRN (22:30)
[2018-02-06] VITALS: BP 134/78
[2018-02-06 04:00] VITALS: BP 144/91
[2018-02-06] MEDS: NovoLOG Insulin Flexpen SUBQ SCH ×4 (05:44→21:00)
[2018-02-06 06:54] LABS: INR 1.6 (0.9-1.1)
[2018-02-06 08:00] VITALS: BP 147/85
[2018-02-06] MEDS: Repaglinide 1mg tab ORAL SCH (09:27)
[2018-02-06] MEDS: Allopurinol 100mg Tab ORAL SCH ×3 (09:28→17:09)
[2018-02-06] MEDS: metFORMIN 500mg tab ORAL SCH ×2 (09:28→17:10)
[2018-02-06] MEDS: Furosemide 80mg tab ORAL SCH (09:28)
[2018-02-06] MEDS: cefTRIAXone 1 GM in D5W 55 ML IVPB SCH (10:24)
[2018-02-06 12:00] VITALS: BP 157/96
[2018-02-06 16:00] VITALS: BP 159/89
--- NOTE | 2018-02-06 19:45 | History and Physical Report ---
DATE OF ADMISSION: 02/05/2018 HISTORY OF PRESENT ILLNESS: This is a 67-year-old male with a previous history of epistaxis. He had been admitted to this hospital in October 2017 with epistaxis as well at that time. A nasal packing had been placed and removed and then replaced again and he was admitted for several days because of persistent epistaxis. He has a history of being currently on Coumadin. The same issue happened yesterday. The patient had placed his head down while undergoing acupuncture and started having epistaxis. He was seen in the emergency room. A packing was placed. He is now admitted to the hospital. PAST HISTORY: Chronic atrial fibrillation, previous CABG, permanent pacemaker, chronic Coumadin usage, diabetes mellitus, gout, hypertension, and SAMIRA with CPAP. MEDICATIONS: Home medications, Glucophage, metformin, glimepiride, Coumadin, aspirin, allopurinol, Lasix, metoprolol, NSAIDs, and Lipitor. REVIEW OF SYSTEMS: Denies any headaches, hematemesis, melena, or hematochezia. PHYSICAL EXAMINATION: GENERAL: Obese male. VITAL SIGNS: Blood pressure is 120/70, heart rate 72, and respiratory is 18 and he is afebrile. HEENT: Unremarkable. There is a nasal packing in place. CHEST: Clear breath sounds bilaterally. There is a left supraclavicular pacemaker in place. ABDOMEN: Soft. EXTREMITIES: There is no edema. LABORATORY AND DIAGNOSTIC DATA: Lab testing shows normal CBC and BMP. Hemoglobin is 15.9. Chemistries are normal. Glucose 129. A1c is 8. Coagulations show INR of 1.6. Imaging studies none. IMPRESSION: 1. Recurrent epistaxis. 2. Chronic Coumadin usage. 3. Chronic atrial fibrillation. 4. Permanent pacemaker. 5. Hypertension. 6. Gout. 7. Diabetes mellitus. DISCUSSION: Nasal packing is in place. I will start on empiric antibiotics. Continue home medications. Hold Coumadin. We will consult Cardiology. We will follow carefully as slots manager/battalion chief. Neri Encinas M.D. DR: BURT JOB#: [id number] CC:
[2018-02-06 20:00] VITALS: BP 160/88
[2018-02-06] MEDS ORDERED: Atorvastatin 20mg tab ORAL SCH (21:00)
[2018-02-07] VITALS: BP 160/97
[2018-02-07 04:00] VITALS: BP 148/86
[2018-02-07] MEDS: NovoLOG Insulin Flexpen SUBQ SCH ×2 (06:37→11:48)
[2018-02-07 07:36] LABS: BASOPHILS % (AUTO) 2.1 % (0.0-2.0); EOSINOPHILS % (AUTO) 5.2 % (0.0-3.0); HEMATOCRIT 44.3 % (42.0-52.0); HEMOGLOBIN 15.3 G/DL (14.2-18.0); MEAN CORPUSCULAR VOLUME 83 FL (80-99); MONOCYTES % (AUTO) 7.8 % (1.0-10.0); NEUTROPHILS % (AUTO) 65.9 % (45.0-75.0); PLATELET COUNT 100 K/UL (150-450); RED BLOOD COUNT 5.32 M/UL (4.70-6.10); RED CELL DISTRIBUTION WIDTH 12.1 % (11.6-14.8)
--- NOTE | 2018-02-07 07:53 | Pulmonology Progress Note ---
Assessment/Plan Assessment/Plan 1. Recurrent epistaxis. 2. Chronic Coumadin usage. 3. Chronic atrial fibrillation. 4. Permanent pacemaker. 5. Hypertension. 6. Gout. 7. Diabetes mellitus. DISCUSSION: Nasal packing removed. Will dc home PO abx eNri Encinas M.D. Subjective Interval Events: No overt bleding. Hgb stable at 15.3 Constitutional: Reports: no symptoms HEENT: Repors: no symptoms Respiratory: Reports: no symptoms Cardiovascular: Reports: no symptoms Gastrointestinal/Abdominal: Reports: no symptoms Genitourinary: Reports: no symptoms Allergies: Coded Allergies: SULFA (SULFONAMIDE ANTIBIOTICS) (Verified Allergy, Unknown, 10/17/17) Objective Last 24 Hour Vital Signs Date Time Temp Pulse Resp B/P (MAP) Pulse Ox O2 Delivery O2 Flow Rate FiO2 02/07/18 04:00 72 02/07/18 04:00 96.8 84 18 148/86 (106) 98 96.8 02/07/18 00:00 82 02/07/18 00:00 96.4 79 20 160/97 (118) 98 96.4 02/06/18 21:00 Room Air 02/06/18 20:00 97.7 76 18 160/88 (112) 96 97.7 02/06/18 20:00 77 02/06/18 16:00 98.0 79 19 159/89 (112) 98 98.0 02/06/18 16:00 72 02/06/18 14:35 97.7 02/06/18 13:36 97.7 02/06/18 12:00 68 02/06/18 12:00 97.8 74 18 157/96 (116) 96 97.8 02/06/18 09:28 77 147/85 02/06/18 09:00 Room Air 02/06/18 08:00 97.4 77 18 147/85 (105) 98 97.4 02/06/18 08:00 70 Intake and Output 02/06/18 02/07/18 19:00 07:00 Intake Total 600 ml 200 ml Balance 600 ml 200 ml Intake Oral 600 ml 200 ml # Voids 4 # Bowel Movements 1 General Appearance: no acute distress HEENT: normocephalic Respiratory/Chest: chest wall non-tender Cardiovascular: normal peripheral pulses, normal rate Abdomen: normal bowel sounds Extremities: no cyanosis Laboratory Tests 02/07/18 06:40: White Blood Count 9.0, Red Blood Count 5.32, Hemoglobin 15.3, Hematocrit 44.3, Mean Corpuscular Volume 83, Mean Corpuscular Hemoglobin 28.7, Mean Corpuscular Hemoglobin Concent 34.5, Red Cell Distribution Width 12.1, Platelet Count 100L, Mean Platelet Volume 10.6H, Neutrophils (%) (Auto) 65.9, Lymphocytes (%) (Auto) 19.0L, Monocytes (%) (Auto) 7.8, Eosinophils (%) (Auto) 5.2H, Basophils (%) ( Auto) 2.1H, Sodium Level [Pending], Potassium Level [Pending], Chloride Level [ Pending], Carbon Dioxide Level [Pending], Blood Urea Nitrogen [Pending], Creatinine [Pending], Estimat Glomerular Filtration Rate [Pending], Glucose Level [Pending], Calcium Level [Pending] Current Medications Medications (Trade) Dose Ordered Sig/Riccardo Route PRN Reason Start Time Stop Time Status Last Admin Dose Admin Acetaminophen/ Hydrocodone Bitart ([place] 5/325) 1 tab Q6H PRN ORAL For Pain 02/05/18 22:30 02/12/18 22:29 02/06/18 13:36 Allopurinol (Zyloprim) 100 mg TID ORAL 02/06/18 09:00 03/08/18 08:59 02/06/18 17:09 Atorvastatin Calcium (Lipitor) 20 mg BEDTIME ORAL 02/06/18 21:00 03/08/18 20:59 02/06/18 21:00 Ceftriaxone Sodium 1 gm/ Dextrose 55 ml @ 110 mls/hr Q24H IVPB 02/06/18 10:30 02/13/18 10:29 02/06/18 10:24 Dextrose (Dextrose 50%) 25 ml STAT PRN IV Hypoglycemia 02/05/18 22:30 03/07/18 22:29 Dextrose (Dextrose 50%) 50 ml STAT PRN IV Hypoglycemia 02/05/18 22:30 03/07/18 22:29 Fexofenadine HCl (Fay) 60 mg TWICE A DAY ORAL 02/06/18 13:21 03/08/18 13:20 02/06/18 17:09 Furosemide (Lasix) 80 mg DAILY ORAL 02/06/18 09:00 03/08/18 08:59 02/06/18 09:28 Insulin Aspart (NovoLOG) BEFORE MEALS AND HS SUBQ 02/06/18 06:30 03/08/18 06:29 02/07/18 06:37 Metformin HCl (Glucophage) 1,000 mg BID ORAL 02/06/18 09:00 03/08/18 08:59 02/06/18 17:10 Metoprolol Tartrate (Lopressor) 100 mg DAILY ORAL 02/06/18 09:00 03/08/18 08:59 02/06/18 09:28 Potassium Chloride (K-Dur) 20 meq DAILY ORAL 02/06/18 09:00 03/08/18 08:59 02/06/18 09:28 Repaglinide (Prandin) 2 mg DAILY ORAL 02/06/18 09:00 03/08/18 08:59 02/06/18 09:27 Zolpidem Tartrate (Ambien) 5 mg HSPRN PRN ORAL Insomnia 02/05/18 22:30 02/12/18 22:29 02/05/18 23:20 Neri Encinas MD Feb 07, 2018 07:53
[2018-02-07] MEDS ORDERED: LEVAQUIN500 MG ORAL (07:55)
[2018-02-07 07:57] LABS: ANION GAP 8 mmol/L (5-15); BLOOD UREA NITROGEN 20 mg/dL (7-18); CALCIUM 9.4 MG/DL (8.5-10.1); CARBON DIOXIDE 30 MMOL/L (21-32); CHLORIDE 102 MMOL/L (98-107); POTASSIUM 4.5 MMOL/L (3.5-5.1); SODIUM 140 MMOL/L (136-145)
[2018-02-07 08:00] VITALS: BP 141/80
[2018-02-07] MEDS: Allopurinol 100mg Tab ORAL SCH (09:09)
[2018-02-07] MEDS: Repaglinide 1mg tab ORAL SCH (09:10)
[2018-02-07] MEDS: Furosemide 80mg tab ORAL SCH (09:10)
[2018-02-07] MEDS: cefTRIAXone 1 GM in D5W 55 ML IVPB SCH (09:11)
[2018-02-07] MEDS: metFORMIN 500mg tab ORAL SCH (09:11)
[2018-02-07 12:00] VITALS: BP 136/80
--- NOTE | 2018-02-09 09:50 | Discharge Summary ---
Discharge Summary Discharge Summary _ DATE OF ADMISSION: 02/05/2018 DATE OF DISCHARGE: 02/07/2018 REASON FOR ADMISSION: 67 years old male with past medical history of diabetes mellitus, hypertension , atrial fibrillation, on chronic Coumadin, pacemaker, gout, presented with epistaxis since early that morning. Patient was unable to control nasal bleeding at home and came to emergency room for further evaluation and management. He denied chest pain. No shortness of breath, no difficulty breathing. Vital signs were stable. Laboratory workup revealed WBC 11.3. INR 1.5. Otherwise stable electrolytes and renal parameters hemoglobin and hematocrit. Patient was actively bleeding from his left nostril. Patient was able to protect his airway. Initially 5.5 cm Rhino Rocket was placed, soaked in lidocaine/epinephrine. On reassessment patient continued bleeding / felt bleeding down the back of his throat. Subsequently 7.5 cm Rhino Rocket soaked in lidocaine/epinephrine was placed. Patient admitted with diagnosis of on severe recurrent epistaxis. HOSPITAL COURSE: Patient admitted to telemetry floor. Home medications were resumed. Coumadin was on hold. Nasal packing was in place. Patient started on empiric antibiotics. Supportive care provided. Pain management was addressed. On the next day nasal packing was removed. No further bleeding. Patient was stable for discharge home. Prescription for oral antibiotics provided . Follow-up with primary care provider in one week. FINAL DIAGNOSES: Recurrent epistaxis Chronic atrial fibrillation Chronic Coumadin usage Permanent pacemaker Hypertension Gout Diabetes mellitus DISCHARGE MEDICATIONS: See Medication Reconciliation list. DISCHARGE INSTRUCTIONS: Patient was discharged home. Follow up with primary care provider in one week. I have been assigned to dictate discharge summary for this account. I was not involved in the patient's management. Anat Walker NP Feb 09, 2018 09:49
== END 2018-02-07 13:50 | disposition home or self-care (01) | DRG 151 ==
LOC: EMR 17:43 → EDBEDREQ 18:01 → 2E 18:11
PROC: 2Y41X5Z Packing of Nasal Region using Packing Material (ICD-10-PCS; principal; 2018-02-05)
DX: R04.0 Epistaxis (principal); I48.2 Chronic atrial fibrillation; Z79.01 Long term (current) use of anticoagulants; Z88.2 Allergy status to sulfonamides; I25.10 Atherosclerotic heart disease of native coronary artery without angina pectoris; Z98.61 Coronary angioplasty status; Z95.0 Presence of cardiac pacemaker; E11.9 Type 2 diabetes mellitus without complications; M10.9 Gout, unspecified; I10 Essential (primary) hypertension; G47.33 Obstructive sleep apnea (adult) (pediatric); Z79.84 Long term (current) use of oral hypoglycemic drugs
CPT/HCPCS: 36415; 80048; 80053; 82550; 82553; 82962; 83036; 84484; 85025; 85610; 85730; 86850; 86900; 86901; 93005; 96374; 99285; J1815; J8499

== ENCOUNTER 2018-04-04 12:27 | Emergency (ER) | payer MEDICARE, BC ==
[~2018-04-04] VITALS: Ht 198.1 cm; Wt 127.0 kg
[~2018-04-04 12:27] MED LIST changes: +LEVAQUIN500 MG ORAL
[2018-04-04] MEDS ORDERED: Augmentin 875mg Tab ORAL ONE (12:45)
--- NOTE | 2018-04-04 12:48 | Emergency Room Report ---
History of Present Illness General Chief Complaint: To Be Triaged Source: Patient Present Illness HPI Patient presents with complaints of epistaxis from the left nasal area ongoing for the past several hours patient reports that he sneezed this morning and that is when the bleeding started Patient reports 4 other visits to the emergency room with similar problems He is on Coumadin secondary to atrial fibrillation At this time denies any chest pain denies any lightheadedness denies any vomiting And presents for the epistaxis Patient reports that he's been seen by Dr sanchez, for the current problem Allergies: Coded Allergies: BACITRACIN (Verified Allergy, Unknown, 04/04/18) NEOMYCIN (Verified Allergy, Unknown, 04/04/18) POLYMYXIN B (Verified Allergy, Unknown, 04/04/18) SULFA (SULFONAMIDE ANTIBIOTICS) (Verified Allergy, Unknown, 10/17/17) Patient History Past Medical History: see triage record Pertinent Family History: none Reviewed Nursing Documentation: PMH: Agreed; PSxH: Agreed Nursing Documentation-PMH Hx Cardiac Problems: Yes - atrial fibrillation Hx Hypertension: Yes Hx Pacemaker: Yes Hx Asthma: No Hx COPD: No Hx Diabetes: Yes Hx Cancer: No Hx Gastrointestinal Problems: No Hx Dialysis: No Hx Neurological Problems: No Hx Cerebrovascular Accident: No Hx Seizures: No Hx Neurologic Surgery: No Hx Brain Shunt: No Review of Systems All Other Systems: negative except mentioned in HPI Physical Exam 99% on room air which is normal pulse oximetry Sp02 EP Interpretation: reviewed, normal General Appearance: no apparent distress Head: normocephalic, atraumatic Eyes: bilateral eye PERRL, bilateral eye EOMI ENT: other - Epistaxis from the left anterior chamber, no septal hematoma Neck: full range of motion, supple Respiratory: lungs clear Cardiovascular #1: irregularly irregular Gastrointestinal: non tender, soft Musculoskeletal: normal inspection Neurologic: alert, oriented x3, responsive Skin: normal color, no rash Lymphatic: no adenopathy Procedures Additional Procedure Procedure Narrative Had the patient blow his nose out, applying lidocaine with epinephrine on the 7.5 anterior chamber nasal packing this was inserted in the left nostril, patient tolerated procedure well, the balloon was inflated with approximately 5 mL Bleeding has been well-controlled again patient tolerated well The area was taped down Medical Decision Making Diagnostic Impression: Primary Impression: Epistaxis ER Course Patient has had previous presentations fairly extensive workup for the epistaxis At this time packing was placed immediately With good control of bleeding patient is observed baseline blood work is evaluated and creatinine is normal INR is 1.7 which is consistent with his Coumadin intake Patient has not taken his pill today and will miss today Contact is made with his ENT specialist and patient will follow this week closely Labs Test 04/04/18 12:55 White Blood Count 8.0 K/UL (4.8-10.8) Red Blood Count 5.61 M/UL (4.70-6.10) Hemoglobin 15.5 G/DL (14.2-18.0) Hematocrit 46.4 % (42.0-52.0) Mean Corpuscular Volume 83 FL (80-99) Mean Corpuscular Hemoglobin 27.6 PG (27.0-31.0) Mean Corpuscular Hemoglobin Concent 33.4 G/DL (32.0-36.0) Red Cell Distribution Width 12.1 % (11.6-14.8) Platelet Count 84 K/UL (150-450) Mean Platelet Volume 10.7 FL (6.5-10.1) Neutrophils (%) (Auto) % (45.0-75.0) Lymphocytes (%) (Auto) % (20.0-45.0) Monocytes (%) (Auto) % (1.0-10.0) Eosinophils (%) (Auto) % (0.0-3.0) Basophils (%) (Auto) % (0.0-2.0) Prothrombin Time 17.0 SEC (9.30-11.50) Prothromb Time International Ratio 1.7 (0.9-1.1) Activated Partial Thromboplast Time 32 SEC (23-33) Sodium Level 135 MMOL/L (136-145) Potassium Level 4.7 MMOL/L (3.5-5.1) Chloride Level 100 MMOL/L (98-107) Carbon Dioxide Level 25 MMOL/L (21-32) Anion Gap 10 mmol/L (5-15) Blood Urea Nitrogen 22 mg/dL (7-18) Creatinine 1.0 MG/DL (0.55-1.30) Estimat Glomerular Filtration Rate > 60 mL/min (>60) Glucose Level 250 MG/DL (74-106) Calcium Level 9.4 MG/DL (8.5-10.1) Rhythm Strip Diag. Results EP Interpretation: yes Rate: 66 Rhythm: no PVC's, no ectopy, other - afib Status: improved Disposition: HOME, SELF-CARE Condition: Improved Scripts Amoxicillin/Potassium Clav 875-125* (AUGMENTIN 875-125 TABLET*) 1 Each Tablet 1 TAB ORAL TWICE A DAY, #10 TAB Prov: Priscilla Hubbard DO 04/04/18 Additional Instructions: Patient is provided with the discharge instructions notified to follow up with primary doctor in the next 2-3 days otherwise return to the er with any worsening symptoms. Please note that this report is being documented using [employer] technology. This can lead to erroneous entry secondary to incorrect interpretation by the dictating instrument. Priscilla Hubbard DO Apr 04, 2018 12:48
[2018-04-04 12:49] VITALS: BP 181/89
[2018-04-04 13:17] LABS: HEMATOCRIT 46.4 % (42.0-52.0); HEMOGLOBIN 15.5 G/DL (14.2-18.0); MEAN CORPUSCULAR VOLUME 83 FL (80-99); PLATELET COUNT 84 K/UL (150-450); RED BLOOD COUNT 5.61 M/UL (4.70-6.10); RED CELL DISTRIBUTION WIDTH 12.1 % (11.6-14.8)
[2018-04-04 13:21] VITALS: BP 170/87
[2018-04-04] MEDS ORDERED: AUGMENTIN 875-1 EAC1 ORAL (13:23)
[2018-04-04 13:24] LABS: INR 1.7 (0.9-1.1)
[2018-04-04 13:28] LABS: ANION GAP 10 mmol/L (5-15); BLOOD UREA NITROGEN 22 mg/dL (7-18); CALCIUM 9.4 MG/DL (8.5-10.1); CARBON DIOXIDE 25 MMOL/L (21-32); CHLORIDE 100 MMOL/L (98-107); POTASSIUM 4.7 MMOL/L (3.5-5.1); SODIUM 135 MMOL/L (136-145)
[2018-04-04 13:50] VITALS: BP 161/88
== END 2018-04-04 13:51 | disposition home or self-care (01) ==
LOC: EMR 13:11
DX: R04.0 Epistaxis (principal); I48.91 Unspecified atrial fibrillation; I10 Essential (primary) hypertension; E11.9 Type 2 diabetes mellitus without complications; Z79.01 Long term (current) use of anticoagulants; Z95.0 Presence of cardiac pacemaker; Z88.2 Allergy status to sulfonamides; Z88.8 Allergy status to other drugs, medicaments and biological substances
CPT/HCPCS: 36415; 80048; 85007; 85025; 85610; 85730; 99284

== ENCOUNTER 2018-05-31 17:18 | Emergency (ER) | payer MEDICARE, BC ==
[~2018-05-31] VITALS: Ht 198.1 cm; Wt 127.0 kg
[~2018-05-31 17:18] MED LIST changes: +AUGMENTIN 875-1 EAC1 ORAL
[2018-05-31 17:54] VITALS: BP 163/101
[2018-05-31 18:56] LABS: HEMATOCRIT 47.5 % (42.0-52.0); HEMOGLOBIN 15.9 G/DL (14.2-18.0); MEAN CORPUSCULAR VOLUME 80 FL (80-99); PLATELET COUNT 88 K/UL (150-450); RED BLOOD COUNT 5.93 M/UL (4.70-6.10); RED CELL DISTRIBUTION WIDTH 12.1 % (11.6-14.8); WHITE BLOOD COUNT 9.2 K/UL (4.8-10.8)
[2018-05-31 19:08] LABS: INR 1.2 (0.9-1.1)
[2018-05-31 19:35] VITALS: BP 131/77
--- NOTE | 2018-05-31 21:36 | Emergency Room Report ---
History of Present Illness General Chief Complaint: Nosebleed Source: Patient (Tanner Calderon) Present Illness HPI 67-year-old male with significant past medical history of nosebleed, previously cauterized by ENT, and currently on Coumadin. Complaining of new onset nosebleed since one hour ago. Patient has had multiple nasal packing in the past and had cauterization by ENT 2 months ago patient reports he forgets to apply the prescribed cream as it was prescribed by Dr. Bermudez his ENT. He complains of postnasal dripping and feeling blood in his mouth. Denies dizziness, fatigue, shortness of breath, chest pain, palpitation, facial trauma and all other associated symptoms. (Tanner Calderon) Allergies: Coded Allergies: BACITRACIN (Verified Allergy, Unknown, 04/04/18) NEOMYCIN (Verified Allergy, Unknown, 04/04/18) POLYMYXIN B (Verified Allergy, Unknown, 04/04/18) SULFA (SULFONAMIDE ANTIBIOTICS) (Verified Allergy, Unknown, 10/17/17) Patient History Past Medical History: see triage record Past Surgical History: unable to obtain Pertinent Family History: none Immunizations: UTD Reviewed Nursing Documentation: PMH: Agreed; PSxH: Agreed (Tanner Calderon) Nursing Documentation-PMH Past Medical History: No History, Except For Hx Cardiac Problems: Yes - atrial fibrillation Hx Hypertension: Yes Hx Pacemaker: Yes Hx Asthma: No Hx COPD: No Hx Diabetes: Yes Hx Cancer: No Hx Gastrointestinal Problems: No Hx Dialysis: No Hx Neurological Problems: No Hx Cerebrovascular Accident: No Hx Seizures: No Hx Neurologic Surgery: No Hx Brain Shunt: No (Tanner Calderon) Review of Systems All Other Systems: negative except mentioned in HPI (Tanner Calderon) Physical Exam Vital Signs Date Time Temp Pulse Resp B/P (MAP) Pulse Ox O2 Delivery O2 Flow Rate FiO2 05/31/18 17:44 98.2 93 19 163/101 95 Room Air Sp02 EP Interpretation: reviewed, normal General Appearance: normal inspection, well appearing, no apparent distress, alert, GCS 15 Head: normocephalic Eyes: bilateral eye normal inspection, bilateral eye PERRL ENT: normal pharynx, other - profuse nasal bleeding from left nostril, blood noted in pharynx Respiratory: normal inspection, chest non-tender, lungs clear, no rhonchi, no retraction, no wheezing Cardiovascular #1: normal inspection, regular rate, rhythm, no edema, no gallop , no murmur Gastrointestinal: normal inspection, non tender, soft Rectal: deferred Genitourinary: deferred Musculoskeletal: normal inspection, back normal, digits/nails normal Neurologic: normal inspection, alert, oriented x3, responsive Psychiatric: normal inspection, judgement/insight normal Skin: normal color, no rash, warm/dry Lymphatic: normal inspection, no adenopathy (Tanner Calderon) Procedures Additional Procedure Procedure Narrative Posterior epistaxis control: Packed with lidocaine epi on cotton. Decreased bleeding. Rhinorocket placed and inflated. Good hemostasis. (John Rooney MD) Medical Decision Making PA Attestation diagnosis and treatment plans are reviewed and discussed with my supervising physician Dr. Rooney (Tanner Calderon) Diagnostic Impression: Primary Impression: Epistaxis Additional Impression: Elevated INR ER Course 67-year-old male with significant past medical history of nosebleed, previously cauterized by ENT, and currently on Coumadin. Complaining of new onset nosebleed since one hour ago. Patient has had multiple nasal packing in the past and had cauterization by ENT 2 months ago patient reports he forgets to apply the prescribed cream as it was prescribed by Dr. Bermudez his ENT. He complains of postnasal dripping and feeling blood in his mouth. Denies dizziness, fatigue, shortness of breath, chest pain, palpitation, facial trauma and all other associated symptoms. Ddx considered but are not limited to anterior epistaxis, posterior epistaxis, Vital signs: are WNL, pt. is afebrile H&PE are most consistent with posterior epistaxis ORDERS: CBC and INR, nasal packing ED INTERVENTIONS: posterior nasal packing was performed by Dr. Rooney, Dr. Bejarano was contacted and patient to see Dr. Hayward tomorrow DISCHARGE: At this time pt. is stable for d/c to home. Will provide printed patient care instructions, and any necessary prescriptions. Care plan and follow up instructions have been discussed with the patient prior to discharge. PT 12.7, INR 1.2 (Tanner Calderon) ER Course Please see above note. Patient well known to me. Examined by me. Discussed with [facility] for possible transfer as ENT and equipment not available ( initially). Posterior epistaxis control. Observed 1/2 hour after placement of tampon. Patient stable for outpatient observation and treatment. Discussed with Dr. Ballesteros (after patient d/c). (John Rooney MD) Last Vital Signs Date Time Temp Pulse Resp B/P (MAP) Pulse Ox O2 Delivery O2 Flow Rate FiO2 05/31/18 17:54 98.2 19 163/101 95 Room Air 05/31/18 17:44 93 (Tanner Calderon) Disposition: HOME, SELF-CARE Condition: Stable Referrals: NON PHYSICIAN (PCP) Patient Instructions: Nosebleed, [id number] Additional Instructions: follow-up with urinalysis throat doctor tomorrow for further evaluation of nasal packing Tanner Calderon May 31, 2018 21:36 John Rooney MD Jun 01, 2018 02:49
[2018-05-31 21:42] VITALS: BP 133/75
== END 2018-05-31 21:42 | disposition home or self-care (01) ==
LOC: EMR 18:17
DX: R04.0 Epistaxis (principal); R79.1 Abnormal coagulation profile; I48.91 Unspecified atrial fibrillation; Z79.01 Long term (current) use of anticoagulants; I10 Essential (primary) hypertension; E11.9 Type 2 diabetes mellitus without complications; Z95.0 Presence of cardiac pacemaker; Z88.2 Allergy status to sulfonamides; Z88.1 Allergy status to other antibiotic agents
CPT/HCPCS: 36415; 85007; 85025; 85610; 99283

== ENCOUNTER 2018-11-16 20:45 | Inpatient (IN) | payer MEDICARE, BC ==
[~2018-11-16] VITALS: Ht 198.1 cm; Wt 125.8 kg
--- NOTE | 2018-11-16 21:07 | Emergency Room Report ---
History of Present Illness General Chief Complaint: Nosebleed Source: Patient, Medical Record Present Illness HPI Patient is a 67-year-old male who presented after increased nasal bleeding. Patient reports having recent surgery to his neck. He reports having carotid surgery. He reports of being on anticoagulation. He reports having seen ENT earlier and had packing removed. Patient was noted to have increased bleeding. Patient has had multiple episodes of bleeding earlier in this week. Patient is currently anticoagulated with Coumadin. He has chronic atrial fibrillation as well as multiple other medical conditions.Patient had attempted to pack the nares prior to arrival. Allergies: Coded Allergies: BACITRACIN (Verified Allergy, Unknown, 11/16/18) NEOMYCIN (Verified Allergy, Unknown, 11/16/18) POLYMYXIN B (Verified Allergy, Unknown, 11/16/18) SULFA (SULFONAMIDE ANTIBIOTICS) (Verified Allergy, Unknown, 11/16/18) Patient History Past Medical History: see triage record Reviewed Nursing Documentation: PMH: Agreed; PSxH: Agreed Nursing Documentation-PMH Hx Cardiac Problems: Yes - atrial fibrillation Hx Hypertension: Yes Hx Pacemaker: Yes Hx Asthma: No Hx COPD: No Hx Diabetes: Yes Hx Cancer: No Hx Gastrointestinal Problems: No Hx Dialysis: No Hx Neurological Problems: No Hx Cerebrovascular Accident: No Hx Seizures: No Hx Neurologic Surgery: No Hx Brain Shunt: No Review of Systems All Other Systems: negative except mentioned in HPI Physical Exam Vital Signs Date Time Temp Pulse Resp B/P (MAP) Pulse Ox O2 Delivery O2 Flow Rate FiO2 11/16/18 20:59 97.7 94 15 133/73 (93) 95 Room Air Sp02 EP Interpretation: reviewed, normal General Appearance: normal inspection, alert, GCS 15, obese, Chronically Ill Head: atraumatic ENT: hearing grossly normal, normal voice, other - nasal bleeding, packing Neck: supple, no bony tend, limited range of motion, other - right side surgical scar C/D/I Respiratory: normal inspection, no respiratory distress, no retraction, no wheezing Cardiovascular #1: no edema, irregularly irregular Gastrointestinal: normal inspection, normal bowel sounds, soft Genitourinary: no CVA tenderness Musculoskeletal: normal inspection, back normal Neurologic: normal inspection, alert, oriented x3, responsive, gaggerman III-XII nml as tested, speech normal Psychiatric: normal inspection, judgement/insight normal, mood/affect normal Skin: normal inspection, normal color, no rash Medical Decision Making Diagnostic Impression: Primary Impression: Severe epistaxis Additional Impressions: Rhinophyma Atrial fibrillation ER Course Patient is a 67-year-old male who presented after increased epistaxis. Differential diagnosis include was not limited to coagulopathy, anemia, posterior bleed among others. Patient was noted to have persistent bleeding to both naris with anterior packing as well as amezcua-examined acid. Patient was initially packed to the left nare only with persistent bleeding. Patient was noted to have initially a small anterior pack placed which was noted to have persistent bleeding as well. Subsequently bilateral 7.5cm packs were placed.Patient was noted to have prior history of atrial fibrillation as well as recent carotid endarterectomy. patient's INR was noted to be subtherapeutic. Dr. Jean Encinas was contacted for inpatient management due to primary care physician. Patient will be admitted for further monitoring and treatment of epistaxis. Labs Test 11/16/18 21:45 White Blood Count 11.4 K/UL (4.8-10.8) Red Blood Count 5.56 M/UL (4.70-6.10) Hemoglobin 15.2 G/DL (14.2-18.0) Hematocrit 43.8 % (42.0-52.0) Mean Corpuscular Volume 79 FL (80-99) Mean Corpuscular Hemoglobin 27.4 PG (27.0-31.0) Mean Corpuscular Hemoglobin Concent 34.8 G/DL (32.0-36.0) Red Cell Distribution Width 13.3 % (11.6-14.8) Platelet Count 182 K/UL (150-450) Mean Platelet Volume 7.7 FL (6.5-10.1) Neutrophils (%) (Auto) 71.6 % (45.0-75.0) Lymphocytes (%) (Auto) 13.3 % (20.0-45.0) Monocytes (%) (Auto) 5.9 % (1.0-10.0) Eosinophils (%) (Auto) 6.8 % (0.0-3.0) Basophils (%) (Auto) 2.4 % (0.0-2.0) Prothrombin Time 13.3 SEC (9.30-11.50) Prothromb Time International Ratio 1.3 (0.9-1.1) Activated Partial Thromboplast Time 28 SEC (23-33) Sodium Level 135 MMOL/L (136-145) Potassium Level 4.2 MMOL/L (3.5-5.1) Chloride Level 100 MMOL/L (98-107) Carbon Dioxide Level 27 MMOL/L (21-32) Anion Gap 8 mmol/L (5-15) Blood Urea Nitrogen 30 mg/dL (7-18) Creatinine 1.1 MG/DL (0.55-1.30) Estimat Glomerular Filtration Rate > 60 mL/min (>60) Glucose Level 246 MG/DL (74-106) Calcium Level 9.1 MG/DL (8.5-10.1) Total Bilirubin 0.5 MG/DL (0.2-1.0) Aspartate Amino Transf (AST/SGOT) 22 U/L (15-37) Alanine Aminotransferase (ALT/SGPT) 30 U/L (12-78) Alkaline Phosphatase 102 U/L (46-116) Total Protein 8.4 G/DL (6.4-8.2) Albumin 3.8 G/DL (3.4-5.0) Globulin 4.6 g/dL Albumin/Globulin Ratio 0.8 (1.0-2.7) Last Vital Signs Date Time Temp Pulse Resp B/P (MAP) Pulse Ox O2 Delivery O2 Flow Rate FiO2 11/16/18 20:59 97.7 94 15 133/73 (93) 95 Room Air Status: improved Disposition: ADMITTED INPATIENT Condition: Stable Wenceslao Barreto MD Nov 16, 2018 21:07
[2018-11-16 21:15] VITALS: BP 133/73
[2018-11-16] MEDS ORDERED: Oxymetazoline 0.05% Na Spray 30ml NASAL ONE (21:15)
[2018-11-16] MEDS ORDERED: Silver Nitrate Stick TOPIC ONE ×3 (21:17→21:30)
--- NOTE | 2018-11-16 21:20 | NUR ---
ED Nurse Note: Patient walked in to ER from [facility] due to nose bleed. Per Patient he went to [facility] and they were overwelmed, and he decided to come to [facility] ER. AAO x4, VSS at this time skin is dry intact. Patient walked in with active nose n\bleed, Dr Barreto by bed side.
[2018-11-16 22:19] LABS: BASOPHILS % (AUTO) 2.4 % (0.0-2.0); EOSINOPHILS % (AUTO) 6.8 % (0.0-3.0); HEMATOCRIT 43.8 % (42.0-52.0); HEMOGLOBIN 15.2 G/DL (14.2-18.0); LYMPHOCYTES % (AUTO) 13.3 % (20.0-45.0); MEAN CORPUSCULAR VOLUME 79 FL (80-99); MONOCYTES % (AUTO) 5.9 % (1.0-10.0); NEUTROPHILS % (AUTO) 71.6 % (45.0-75.0); PLATELET COUNT 182 K/UL (150-450); RED BLOOD COUNT 5.56 M/UL (4.70-6.10); RED CELL DISTRIBUTION WIDTH 13.3 % (11.6-14.8); WHITE BLOOD COUNT 11.4 K/UL (4.8-10.8)
[2018-11-16 22:21] LABS: ANION GAP 8 mmol/L (5-15); BLOOD UREA NITROGEN 30 mg/dL (7-18); CALCIUM 9.1 MG/DL (8.5-10.1); CARBON DIOXIDE 27 MMOL/L (21-32); CHLORIDE 100 MMOL/L (98-107); CREATININE 1.1 MG/DL (0.55-1.30); POTASSIUM 4.2 MMOL/L (3.5-5.1); SODIUM 135 MMOL/L (136-145)
[2018-11-16 22:25] LABS: INR 1.3 (0.9-1.1)
[2018-11-16 22:26] LABS: ALANINE AMINOTRANSFERASE 30 U/L (12-78); ALBUMIN 3.8 G/DL (3.4-5.0); ALBUMIN/GLOBULIN RATIO 0.8 (1.0-2.7); ALKALINE PHOSPHATASE 102 U/L (46-116); ASPARTATE AMINO TRANSFERASE 22 U/L (15-37); BILIRUBIN,TOTAL 0.5 MG/DL (0.2-1.0)
[2018-11-17] VITALS (7 sets, daily range): BP systolic 120–158; BP diastolic 70–99
--- NOTE | 2018-11-17 01:50 | NUR ---
ED Nurse Note: pt cleaned and changed into gown, vss, extra blanket provided for comfort, bed lowest position w/ siderail x2, pt advised to notify staff if needed assist.
--- NOTE | 2018-11-17 03:18 | NUR ---
ED Nurse Note: Tryed to give report, unsuccessful. RN states that there is no admitting Dr. and bed is not ready yet.
--- NOTE | 2018-11-17 03:55 | NUR ---
ED Nurse Note: PATIENT WAS ADMITED TO TELE DUE TO ATRIAL FIBRILATION, AND EPISTAXIS. PATIENT TAKING COUMIDIN AND ASA 81MG. AAO X4, VSS AT THIS TIME, SKIN DRY, INTACT,WARM TO TOUCH. PATIENT WAS TRANSFERED VIA GURNEY WITH ALL BELONGINGS.
--- NOTE | 2018-11-17 04:05 | NUR ---
NURSE NOTES: Received pt from ED via gurney. Pt transferred to unit and bed without any incident. Received report from NOR[facility] Ricci. Pt is A/Ox4. [place] pt to room, unit, and hospital policies. residential monitor is in placed, IV site intact, asymptomatic and patent. Bed is in the lowest position and locked. Call light within reach. Belongings list checked and accounted. Epistaxis is controlled. No signs/symptoms of acute distress noted at this time. Will call Dr. Suárez for admission orders.
--- NOTE | 2018-11-17 05:30 | NUR ---
NURSE NOTES: Received admission orders from Dr. Wright. Will note and carry out.
[2018-11-17] MEDS ORDERED: HYDROcodone/Acetamin 5/325 tab ORAL PRN (06:15)
--- NOTE | 2018-11-17 08:00 | NUR ---
NURSE NOTES: Received report from Emily AUSTIN. Pt is A/Ox4. IV right AC 20G intact, asymptomatic and patent. Bed is in the lowest position and locked. Call light within reach. bed rails x2 up. Epistaxis is controlled. No s/sx acute distress noted at this time. Will continue to plan of care.
--- NOTE | 2018-11-17 08:04 | NUR ---
HAND-OFF: Report given to NORMAN Stephen.
--- NOTE | 2018-11-17 08:30 | History & Physical ---
History and Physical History & Physicial HISTORY OF PRESENT ILLNESS: This is a 67-year-old male with a previous history of epistaxis. He had been admitted to this hospital in October 2017 with epistaxis as well at that time. A nasal packing had been placed and removed and then replaced again and he was admitted for several days because of persistent epistaxis. He has a history of being currently on Coumadin. The same issue happened yesterday. He has been seeing Dr Ballesteros as outpatient for the same problem he recently underwent carotid surgery. He was seen in the emergency room. A packing was placed. He is now admitted to the hospital. PAST HISTORY: Chronic atrial fibrillation, previous CABG, permanent pacemaker, chronic Coumadin usage, diabetes mellitus, gout, hypertension, and SAMIRA with CPAP. MEDICATIONS: Home medications, Glucophage, metformin, glimepiride, Coumadin, aspirin, allopurinol, Lasix, metoprolol, NSAIDs, and Lipitor. REVIEW OF SYSTEMS: Denies any headaches, hematemesis, melena, or hematochezia. PHYSICAL EXAMINATION: GENERAL: Obese male. VITAL SIGNS: Blood pressure is 120/70, heart rate 72, and respiratory is 18 and he is afebrile. HEENT: Unremarkable. There is a nasal packing in place. CHEST: Clear breath sounds bilaterally. There is a left supraclavicular pacemaker in place. ABDOMEN: Soft. EXTREMITIES: There is no edema. LABORATORY AND DIAGNOSTIC DATA: Reviewed IMPRESSION: 1. Recurrent epistaxis. 2. Chronic Coumadin usage. 3. Chronic atrial fibrillation. 4. Permanent pacemaker. 5. Hypertension. 6. Gout. 7. Diabetes mellitus. 8. S/p Carotid surgery DISCUSSION: Nasal packing is in place. I will start on empiric antibiotics. Continue home medications. Hold Coumadin. We will consult Cardiology. 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 Shae Bojorquez Omar Syed MD Nov 17, 2018 08:30
[2018-11-17] MEDS: Repaglinide 1mg tab ORAL SCH (09:23)
[2018-11-17] MEDS: Allopurinol 100mg Tab ORAL SCH ×3 (09:23→17:55)
[2018-11-17] MEDS: Furosemide 80mg tab ORAL SCH (09:23)
[2018-11-17] MEDS: Metoprolol Succinate XL 100mg tab ORAL SCH (09:23)
[2018-11-17] MEDS: Indomethacin 25mg cap ORAL SCH (09:23)
[2018-11-17] MEDS: cefTRIAXone 1 GM in D5W 55 ML IVPB SCH (09:25)
[2018-11-17] MEDS: metFORMIN 500mg tab ORAL SCH ×2 (09:32→17:55)
--- NOTE | 2018-11-17 09:34 | Cardiology Progress Note ---
Assessment/Plan Assessment/Plan 1. Recurrent epistaxis. 2. Coagulopathy secondary to Coumadin. anitplt for and nsaid use 3. Coronary artery disease, status post coronary artery bypass grafting. 4. Exertional dyspnea. 5. Permanent atrial fibrillation. 6. History of permanent pacemaker implantation. 7. Obstructive sleep apnea. 8. Hyperlipidemia. 9. Obesity 10. recent carotid endarrectomy [id number] off antiplt and anticoag to be resumed as soon as safe in future consider watchman Objective Last 24 Hour Vital Signs Date Time Temp Pulse Resp B/P (MAP) Pulse Ox O2 Delivery O2 Flow Rate FiO2 11/17/18 09:23 86 147/92 11/17/18 08:00 98.3 86 24 147/92 (110) 96 11/17/18 04:22 Room Air 11/17/18 04:20 87 11/17/18 04:05 98.0 94 20 149/84 (105) 96 11/17/18 03:55 98.0 98 22 147/78 98 Room Air 11/17/18 01:18 98.0 98 22 146/78 95 Room Air 11/16/18 21:15 97.7 15 133/73 95 Room Air 11/16/18 20:59 97.7 94 15 133/73 (93) 95 Room Air Laboratory Tests Test 11/16/18 21:45 White Blood Count 11.4 K/UL (4.8-10.8) H Red Blood Count 5.56 M/UL (4.70-6.10) Hemoglobin 15.2 G/DL (14.2-18.0) Hematocrit 43.8 % (42.0-52.0) Mean Corpuscular Volume 79 FL (80-99) L Mean Corpuscular Hemoglobin 27.4 PG (27.0-31.0) Mean Corpuscular Hemoglobin Concent 34.8 G/DL (32.0-36.0) Red Cell Distribution Width 13.3 % (11.6-14.8) Platelet Count 182 K/UL (150-450) Mean Platelet Volume 7.7 FL (6.5-10.1) Neutrophils (%) (Auto) 71.6 % (45.0-75.0) Lymphocytes (%) (Auto) 13.3 % (20.0-45.0) L Monocytes (%) (Auto) 5.9 % (1.0-10.0) Eosinophils (%) (Auto) 6.8 % (0.0-3.0) H Basophils (%) (Auto) 2.4 % (0.0-2.0) H Prothrombin Time 13.3 SEC (9.30-11.50) H Prothromb Time International Ratio 1.3 (0.9-1.1) H Activated Partial Thromboplast Time 28 SEC (23-33) Sodium Level 135 MMOL/L (136-145) L Potassium Level 4.2 MMOL/L (3.5-5.1) Chloride Level 100 MMOL/L (98-107) Carbon Dioxide Level 27 MMOL/L (21-32) Anion Gap 8 mmol/L (5-15) Blood Urea Nitrogen 30 mg/dL (7-18) H Creatinine 1.1 MG/DL (0.55-1.30) Estimat Glomerular Filtration Rate > 60 mL/min (>60) Glucose Level 246 MG/DL (74-106) H Calcium Level 9.1 MG/DL (8.5-10.1) Total Bilirubin 0.5 MG/DL (0.2-1.0) Aspartate Amino Transf (AST/SGOT) 22 U/L (15-37) Alanine Aminotransferase (ALT/SGPT) 30 U/L (12-78) Alkaline Phosphatase 102 U/L (46-116) Total Protein 8.4 G/DL (6.4-8.2) H Albumin 3.8 G/DL (3.4-5.0) Globulin 4.6 g/dL Albumin/Globulin Ratio 0.8 (1.0-2.7) Ludwig Crane MD Nov 17, 2018 09:34
[2018-11-17] MEDS: Lisinopril 10mg tab ORAL SCH (11:19)
--- NOTE | 2018-11-17 12:28 | NUR ---
NURSE NOTES: Noted nose bleed thru the packing of both noses and also bleed from left eye. V/S: 129/80, P 93. Dr. MITCHELL notified for restarting nose bleed. No new noted. Ice pack applied to nasal area,
--- NOTE | 2018-11-17 14:05 | NUR ---
CASE MANAGEMENT:REVIEW 67 YR OLD MALE PRESENTED TO ER FROM HOME CC: NOSEBLEED SI: EPISTAXIS. AFIB 97.7 94 15 133/73 95% ON RA WBC+11.4 IS: TRANEXAMIC OXYMETAZOLINE NASAL SPRAY SILVER NITRATE X2 : TO TELEMETRY UNIT DCP: FROM HOME
[2018-11-17] MEDS ORDERED: Metoprolol Succinate XL 50mg tab ORAL SCH (14:30)
[2018-11-17] MEDS ORDERED: GLIMEPIRIDE1 MG ORAL (16:45)
[2018-11-17] MEDS ORDERED: ASPIRIN-LOW81 MG ORAL (16:45)
[2018-11-17] MEDS ORDERED: LISINOPRIL5 MG ORAL (16:55)
[2018-11-17] MEDS ORDERED: LIPITOR80 MG ORAL (16:55)
[2018-11-17] MEDS ORDERED: METOLAZONE5 MG PO (16:55)
[2018-11-17] MEDS ORDERED: HYDROCHLOROTHIA50 MG ORAL (16:56)
--- NOTE | 2018-11-17 19:31 | NUR ---
HAND-OFF: Report given to Citlalli AUSTIN. Pt remains stable.
--- NOTE | 2018-11-17 19:46 | NUR ---
NURSE NOTES: RECEIVED PATIENT SITTING IN BED, NASAL PACKING IN PLACE. FALL AND ASPIRATION PRECAUTIONS IN PLACE: CALL LIGHT, BEDSIDE TABLE, URINAL AND WALKER WITHIN REACH, BED IN LOW POSITION; HOB ELEVATED. PATIENT REQUESTING SLEEPING PILL. WILL CALL MD. PLAN OF CARE REVIEWED.
[2018-11-17] MEDS: Atorvastatin 20mg tab ORAL SCH (20:11)
--- NOTE | 2018-11-17 20:33 | Cardiology Report ---
APPROVED REPORT EXAM: Two-dimensional and M-mode echocardiogram with Doppler and color Doppler. INDICATION ATRIAL FLUTTER M-Mode DIMENSIONS IVSd1.8 (0.7-1.1cm)Left Atrium (MM)4.1 (1.6-4.0cm) LVDd5.3 (3.5-5.6cm)Aortic Root4.1 (2.0-3.7cm) PWd1.3 (0.7-1.1cm)Aortic Cusp Exc.1.8 (1.5-2.0cm) IVSs1.4 cm LVDs5.5 (2.5-4.0cm) PWs1.5 cm endoardial definition There is hypokinesis of jones setpum and distal inferior wall other evans, the endocardium is poorly defined and wall motion cannot be evaluated . Mild left ventricular enlargement . Left ventricular ejection fraction cannot be estimated estimated Mild left ventricular hypertrophy . No evidence of pericardial effusion . Moderate bi-atrial enlargement . Normal right ventricular chamber size . Aortic valve calcification with normal cusp excursion . Mildly thickened mitral valve leaflets with normal excursion. Mild mitral annulus and aortic root calcification. Pulmonic valve not well visualized. IVC at normal size with slightly physiologic collapse. Pacing wire in RV A color flow and spectral Doppler study was performed and revealed: Trace aortic insufficiency . Left ventricular diastolic function is not diagnostic due atrial fibrillation Mild mitral regurgitation. Trace tricuspid regurgitation. Tricuspid systolic velocities suggests peak right ventricular systolic pressure of 21mmHg.
[2018-11-17] MEDS: Zolpidem 5mg tab ORAL PRN (23:16)
[2018-11-18] VITALS: BP 127/58
[2018-11-18 04:00] VITALS: BP 117/63
[2018-11-18] MEDS: metFORMIN 500mg tab ORAL SCH ×2 (06:15→17:36)
--- NOTE | 2018-11-18 07:04 | NUR ---
NURSE NOTES: Received report from Citlalli AUSTIN. Alert and oriented x4. Pt sitting in bed awake. No signs of distress noted. No c/o pain. No signs of nose bleed. Pt denied the fluid running down to his throat. Bed in its lowest position. Bed side rails upx2. FWW placed at the bedside. IV site in RFA 22G SL. On room air. Rhythm with A-fib with vpaced reported. Will continue to plan of care.
--- NOTE | 2018-11-18 07:09 | NUR ---
HAND-OFF: Report given to NORMAN ALEXIS. PATIENT RESTING IN BED, NO SIGNS OF DISTRESS NOTED.
[2018-11-18 07:21] LABS: ANION GAP 10 mmol/L (5-15); BLOOD UREA NITROGEN 29 mg/dL (7-18); CALCIUM 9.8 MG/DL (8.5-10.1); CARBON DIOXIDE 25 MMOL/L (21-32); CHLORIDE 100 MMOL/L (98-107); CREATININE 0.9 MG/DL (0.55-1.30); POTASSIUM 4.1 MMOL/L (3.5-5.1); SODIUM 135 MMOL/L (136-145)
[2018-11-18 07:23] LABS: BASOPHILS % (AUTO) 2.1 % (0.0-2.0); EOSINOPHILS % (AUTO) 4.4 % (0.0-3.0); HEMATOCRIT 38.6 % (42.0-52.0); HEMOGLOBIN 13.4 G/DL (14.2-18.0); MEAN CORPUSCULAR VOLUME 80 FL (80-99); NEUTROPHILS % (AUTO) 72.5 % (45.0-75.0); PLATELET COUNT 168 K/UL (150-450); RED BLOOD COUNT 4.83 M/UL (4.70-6.10); RED CELL DISTRIBUTION WIDTH 13.6 % (11.6-14.8); WHITE BLOOD COUNT 11.6 K/UL (4.8-10.8)
--- NOTE | 2018-11-18 07:23 | Pulmonology Progress Note ---
Assessment/Plan Assessment/Plan 1. Recurrent epistaxis. 2. Chronic Coumadin usage. 3. Chronic atrial fibrillation. 4. Permanent pacemaker. 5. Hypertension. 6. Gout. 7. Diabetes mellitus. 8. S/p Carotid surgery DISCUSSION: Nasal packing is in place. Continue empiric antibiotics. Continue home medications. Hold Coumadin. Seen by Cardiology. I will follow carefully as patient liaison/tower erector helper. Await ENT consult. Subjective Interval Events: Epistaxis continuing; ENT consultd Constitutional: Reports: no symptoms HEENT: Repors: no symptoms Respiratory: Reports: no symptoms Cardiovascular: Reports: no symptoms Gastrointestinal/Abdominal: Reports: no symptoms Genitourinary: Reports: no symptoms Allergies: Coded Allergies: BACITRACIN (Verified Allergy, Unknown, 11/16/18) NEOMYCIN (Verified Allergy, Unknown, 11/16/18) POLYMYXIN B (Verified Allergy, Unknown, 11/16/18) SULFA (SULFONAMIDE ANTIBIOTICS) (Verified Allergy, Unknown, 11/16/18) Objective Last 24 Hour Vital Signs Date Time Temp Pulse Resp B/P (MAP) Pulse Ox O2 Delivery O2 Flow Rate FiO2 11/18/18 04:00 97.9 98 20 117/63 (81) 97 11/18/18 04:00 86 11/18/18 00:00 128 11/18/18 00:00 98.4 76 20 127/58 (81) 96 11/17/18 21:00 Room Air 11/17/18 20:00 98.2 112 18 158/99 (118) 100 11/17/18 20:00 73 11/17/18 16:00 97.3 74 23 135/88 (104) 98 11/17/18 16:00 90 11/17/18 14:43 130 70/91 11/17/18 14:42 97.9 111 20 130/70 (90) 96 11/17/18 12:00 98.3 93 20 120/80 (93) 96 11/17/18 12:00 103 11/17/18 11:19 147/92 11/17/18 09:23 86 147/92 11/17/18 09:00 Room Air 11/17/18 08:00 85 11/17/18 08:00 98.3 86 24 147/92 (110) 96 Intake and Output 11/17/18 11/18/18 19:00 07:00 Intake Total 240 ml Balance 240 ml Intake Oral 240 ml # Voids 5 4 General Appearance: no acute distress HEENT: normocephalic Respiratory/Chest: chest wall non-tender Cardiovascular: normal peripheral pulses Abdomen: normal bowel sounds Laboratory Tests 11/18/18 06:23: White Blood Count [Pending], Red Blood Count [Pending], Hemoglobin [Pending], Hematocrit [Pending], Mean Corpuscular Volume [Pending], Mean Corpuscular Hemoglobin [Pending], Mean Corpuscular Hemoglobin Concent [Pending], Red Cell Distribution Width [Pending], Platelet Count [Pending], Mean Platelet Volume [ Pending], Neutrophils (%) (Auto) [Pending], Lymphocytes (%) (Auto) [Pending], Monocytes (%) (Auto) [Pending], Eosinophils (%) (Auto) [Pending], Basophils (%) (Auto) [Pending], Sodium Level 135L, Potassium Level 4.1, Chloride Level 100, Carbon Dioxide Level 25, Anion Gap 10, Blood Urea Nitrogen 29H, Creatinine 0.9, Estimat Glomerular Filtration Rate > 60, Glucose Level 203H, Calcium Level 9.8, Magnesium Level 1.9 Current Medications Medications (Trade) Dose Ordered Sig/Riccardo Route PRN Reason Start Time Stop Time Status Last Admin Dose Admin Acetaminophen/ Hydrocodone Bitart ([place] 5/325) 1 tab Q6H PRN ORAL For Pain 11/17/18 06:15 11/24/18 06:14 Allopurinol (Zyloprim) 100 mg TID ORAL 11/17/18 09:00 12/17/18 08:59 11/17/18 17:55 Atorvastatin Calcium (Lipitor) 20 mg BEDTIME ORAL 11/17/18 21:00 12/17/18 20:59 11/17/18 20:11 Ceftriaxone Sodium 1 gm/ Dextrose 55 ml @ 110 mls/hr Q24H IVPB 11/17/18 10:00 11/24/18 09:59 11/17/18 09:25 Furosemide (Lasix) 80 mg DAILY ORAL 11/17/18 09:00 12/17/18 08:59 11/17/18 09:23 Indomethacin (Indocin) 25 mg DAILY ORAL 11/17/18 09:00 12/17/18 08:59 11/17/18 09:23 Lisinopril (Zestril) 10 mg DAILY ORAL 11/17/18 09:45 12/17/18 09:44 11/17/18 11:19 Metformin HCl (Glucophage) 500 mg BIAC ORAL 11/17/18 09:00 12/17/18 08:59 11/18/18 06:15 Metoprolol Succinate (Toprol XL) 100 mg DAILY ORAL 11/17/18 09:00 12/17/18 08:59 11/17/18 09:23 Potassium Chloride (K-Dur) 20 meq DAILY ORAL 11/17/18 09:00 12/17/18 08:59 11/17/18 09:23 Repaglinide (Prandin) 2 mg DAILY ORAL 11/17/18 09:00 12/17/18 08:59 11/17/18 09:23 Zolpidem Tartrate (Ambien) 5 mg HSPRN PRN ORAL Insomnia 11/17/18 21:00 11/24/18 20:59 11/17/18 23:16 Neri Encinas MD Nov 18, 2018 07:23
[2018-11-18 08:00] VITALS: BP 135/85
[2018-11-18] MEDS: Metoprolol Succinate XL 100mg tab ORAL SCH (08:56)
[2018-11-18] MEDS: Furosemide 80mg tab ORAL SCH (08:57)
[2018-11-18] MEDS: Lisinopril 10mg tab ORAL SCH (08:57)
[2018-11-18] MEDS: Allopurinol 100mg Tab ORAL SCH ×3 (08:57→17:37)
[2018-11-18] MEDS: Indomethacin 25mg cap ORAL SCH (08:57)
[2018-11-18] MEDS: Repaglinide 1mg tab ORAL SCH (08:57)
[2018-11-18] MEDS: cefTRIAXone 1 GM in D5W 55 ML IVPB SCH (09:12)
--- NOTE | 2018-11-18 10:15 | Consultation ---
DATE OF CONSULTATION: 11/17/2018 CARDIOLOGY CONSULTATION CONSULTING PHYSICIAN: Ludwig Landrum M.D. REFERRING PHYSICIAN: Neri Encinas M.D. REASON FOR REFERRAL: Epistaxis in the face of anticoagulation and atrial fibrillation. HISTORY OF PRESENT ILLNESS: This is a middle-aged gentleman, who is known to me from one prior evaluation here in the hospital. He basically presented to the hospital because of epistaxis with recurrent episodes for him and he tells me over the past year he has had four episodes of this epistaxis. Every time he used to put some kind of a pressure on himself, he starts having bleeding. He presented to the emergency room and was seen in the emergency room, he has had ENT evaluations, had packings before and packings have been removed. He has had bleeding 00:50 apparently he had several episodes of bleeding earlier this week as well. He is on anticoagulation with Coumadin for his chronic atrial fibrillation. He really does not have any chest pain or pressure. No PND. No orthopnea. He uses one pillow. There is no dizziness on standing. No heart pounding or palpitations. PAST MEDICAL HISTORY: Positive for diabetes, high blood pressure, high cholesterol. No heart attack. No cancer. No stroke. No hepatitis or tuberculosis. No asthma. No emphysema. No ulcers. No kidney problems, liver problems, thyroid problems, anemia or HIV. He does have a history of rheumatoid arthritis and possible lupus has been more recently diagnosed. He does have a history of coronary artery disease, status post coronary artery bypass grafting and he has a history of permanent pacemaker implantation. He has had several cardioversions apparently. He has had a carotid endarterectomy performed on the right side a few weeks ago and is scheduled to undergo the left side in the next month or so. The patient does have history of sleep apnea. SOCIAL HISTORY: He does smoke. He drinks alcoholic beverages at times. There is no drug use. 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 ALLERGIES: The patient is allergic to sulfa. REVIEW OF SYSTEMS: GASTROINTESTINAL: He denies. GENITOURINARY: He denies. PULMONARY: Coughing only 01:58 being caused by blood going down the back of the throat. CONSTITUTIONAL: He denies. NEUROLOGICAL: He denies. PHYSICAL EXAMINATION: GENERAL: Shows to be middle-aged gentleman, tall, in no apparent respiratory distress. Tampon in his left naris packed. LUNGS: Appeared to be clear to auscultation. CARDIAC: Irregular, not tachycardic. No heaves or thrills noted. ABDOMEN: Soft. Positive bowel sounds. Nontender. EXTREMITIES: There is no clubbing or cyanosis. There is chronic venous stasis changes. He has had treatment of his varicose veins by vascular surgeon before. LABORATORY VALUES: His INR at the time of admission was only 1.3. There is a PTT of 28. Sodium 135, potassium 4.2, chloride 100, bicarbonate 27, BUN 30, creatinine 1.1, and glucose of 246. Liver function tests are normal. He has albumin of 3.8. White count of 11.4 with hemoglobin of 15.2, and platelet count 182. His EKG shows atrial fibrillation with ventricular pacing. Nonspecific T-wave changes are noted. ASSESSMENT AND PLAN: 1. Recurrent epistaxis. 2. Permanent atrial fibrillation on anticoagulation for stroke prevention. 3. Coronary artery disease, status post coronary artery bypass grafting. 4. History of permanent pacemaker implantation. 5. Obstructive sleep apnea history. 6. Hyperlipidemia. 7. Obesity. RECOMMENDATIONS: Nevertheless recommendations, Dr. Encinas, this patient was seen in cardiac consultation. The patient has had several episodes of bleeding probably combination of underlying pathology with anticoagulation, antiplatelet agents, and use of non-steroidals have probably increased the chance of bleeding. He does have atrial fibrillation. He is obviously at high risk of having the stroke. The question is whether the measures that he is undergoing would help him decrease the chances of recurrent bleeding, although increased risk of stroke while he is off anticoagulation. I explained this to the patient and he understands and obviously because of his recurrent bleeding, the anticoagulation antiplatelets have been held. I think he probably is a very good candidate of Watchman Device use in the near future. He has carotid endarterectomy scheduled for approximately four weeks or so from now and he probably should be considered for Watchman Device through his strap cutter in the future as discussed with him. Nevertheless, he is already off antiplatelets and anticoagulation. At this time, his INR is not therapeutic. He will require further evaluation. I am not sure if 05:36 is feasible choice with his recurrent bleeding to help. 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 I have explained that after the appointment 06:02, he will need to be on anticoagulation and platelets 06:05 six weeks or so. He will need to discuss that with his strap cutter. Ludwig Landrum M.D. DR: PRAKASH JOB#: [id number] CC:
[2018-11-18 12:00] VITALS: BP 107/64
[2018-11-18 16:00] VITALS: BP 105/66
--- NOTE | 2018-11-18 17:46 | NUR ---
NURSE NOTES: Dr. Ballesteros paged for ETA for the patient at [facility] [place] today
--- NOTE | 2018-11-18 18:00 | NUR ---
NURSE NOTES: 2cc air deflated from nasal packing done ordering by dr. Ballesteros(ENT). Dr. Ballesteros states that he will come and see the patient tomorrow AM. Informed the patient and his .
--- NOTE | 2018-11-18 19:32 | NUR ---
HAND-OFF: Report given to Jeremías AUSTIN. Pt remains stable.
--- NOTE | 2018-11-18 19:45 | NUR ---
NURSE NOTES: Received patient from NORMAN Hdz. patient is sitting in bed and verbally responsive to commands. nasal packing is in place. patient denies pain at this time. Patient is on room air, with no s/sx of respiratory distress. IV site is patent and intact. bed in lowest position and locked, siderails up X2, call light within reach. will continue to monitor.
[2018-11-18 20:00] VITALS: BP 112/74
--- NOTE | 2018-11-18 20:33 | Cardiology Progress Note ---
Assessment/Plan Assessment/Plan 1. Recurrent epistaxis. 2. Coagulopathy secondary to Coumadin. anitplt for and nsaid use 3. Coronary artery disease, status post coronary artery bypass grafting. 4. Exertional dyspnea. 5. Permanent atrial fibrillation. 6. History of permanent pacemaker implantation. 7. Obstructive sleep apnea. 8. Hyperlipidemia. 9. Obesity 10. 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 could note be analyzed acei added and bb increased faina afib v pacing Subjective Cardiovascular: Denies: chest pain, lightheadedness, palpitations Respiratory: Denies: shortness of breath Gastrointestinal/Abdominal: Denies: abdominal pain Genitourinary: Denies: burning Objective Last 24 Hour Vital Signs Date Time Temp Pulse Resp B/P (MAP) Pulse Ox O2 Delivery O2 Flow Rate FiO2 11/18/18 16:00 80 11/18/18 16:00 97.0 67 22 105/66 (79) 97 11/18/18 12:00 87 11/18/18 12:00 98.0 92 22 107/64 (78) 97 11/18/18 09:00 Room Air 11/18/18 08:57 135/85 11/18/18 08:56 76 135/85 11/18/18 08:00 90 11/18/18 08:00 98.3 76 22 135/85 (102) 98 11/18/18 04:00 97.9 98 20 117/63 (81) 97 11/18/18 04:00 86 11/18/18 00:00 128 11/18/18 00:00 98.4 76 20 127/58 (81) 96 11/17/18 21:00 Room Air General Appearance: alert Cardiovascular: irregularly irregular Respiratory/Chest: lungs clear Abdomen: normal bowel sounds, non tender, soft Extremities: no swelling Intake and Output 11/17/18 11/18/18 18:59 06:59 Intake Total 240 ml Balance 240 ml Intake Oral 240 ml # Voids 5 4 Laboratory Tests Test 11/18/18 06:23 White Blood Count 11.6 K/UL (4.8-10.8) H Red Blood Count 4.83 M/UL (4.70-6.10) Hemoglobin 13.4 G/DL (14.2-18.0) L Hematocrit 38.6 % (42.0-52.0) L Mean Corpuscular Volume 80 FL (80-99) Mean Corpuscular Hemoglobin 27.8 PG (27.0-31.0) Mean Corpuscular Hemoglobin Concent 34.7 G/DL (32.0-36.0) Red Cell Distribution Width 13.6 % (11.6-14.8) Platelet Count 168 K/UL (150-450) Mean Platelet Volume 8.3 FL (6.5-10.1) Neutrophils (%) (Auto) 72.5 % (45.0-75.0) Lymphocytes (%) (Auto) 14.0 % (20.0-45.0) L Monocytes (%) (Auto) 7.0 % (1.0-10.0) Eosinophils (%) (Auto) 4.4 % (0.0-3.0) H Basophils (%) (Auto) 2.1 % (0.0-2.0) H Sodium Level 135 MMOL/L (136-145) L Potassium Level 4.1 MMOL/L (3.5-5.1) Chloride Level 100 MMOL/L (98-107) Carbon Dioxide Level 25 MMOL/L (21-32) Anion Gap 10 mmol/L (5-15) Blood Urea Nitrogen 29 mg/dL (7-18) H Creatinine 0.9 MG/DL (0.55-1.30) Estimat Glomerular Filtration Rate > 60 mL/min (>60) Glucose Level 203 MG/DL (74-106) H Calcium Level 9.8 MG/DL (8.5-10.1) Magnesium Level 1.9 MG/DL (1.8-2.4) Ludwig Landrum MD Nov 18, 2018 20:33
[2018-11-18] MEDS: Atorvastatin 20mg tab ORAL SCH (20:52)
[2018-11-19] VITALS: BP 108/71
[2018-11-19] MEDS: Zolpidem 5mg tab ORAL PRN (00:28)
[2018-11-19 04:00] VITALS: BP 113/65
--- NOTE | 2018-11-19 04:25 | NUR ---
RESPIRATORY NOTE: Patient has brought his own CPAP machine and has a [place] family reunification specialist it. Seems like [employer] checked it. Patient decided to go on his own machine around 2200. Patient is in no distress and will continue to monitor.
[2018-11-19] MEDS: metFORMIN 500mg tab ORAL SCH ×2 (06:25→17:15)
--- NOTE | 2018-11-19 07:32 | NUR ---
HAND-OFF: Report given to NORMAN Mena. patient is in stable condition.
[2018-11-19 08:00] VITALS: BP 136/73
--- NOTE | 2018-11-19 08:03 | NUR ---
NURSE NOTES: Patient is alert and oriented. Nose packing intact. No bleeding noted. Patient has no reports of discomfort at the moment. Patient is resting in bed. Bed is locked, in lowest position, and call light is within reach. Will continue to monitor.
[2018-11-19] MEDS: Repaglinide 1mg tab ORAL SCH (08:24)
[2018-11-19] MEDS: Indomethacin 25mg cap ORAL SCH (08:25)
[2018-11-19] MEDS: Allopurinol 100mg Tab ORAL SCH ×3 (08:25→17:14)
[2018-11-19] MEDS: Lisinopril 10mg tab ORAL SCH (08:26)
[2018-11-19] MEDS: Metoprolol Succinate XL 100mg tab ORAL SCH (08:28)
[2018-11-19] MEDS: Furosemide 80mg tab ORAL SCH (08:28)
[2018-11-19 08:29] LABS: ANION GAP 7 mmol/L (5-15); BLOOD UREA NITROGEN 26 mg/dL (7-18); CALCIUM 9.7 MG/DL (8.5-10.1); CARBON DIOXIDE 28 MMOL/L (21-32); CHLORIDE 101 MMOL/L (98-107); POTASSIUM 4.5 MMOL/L (3.5-5.1); SODIUM 136 MMOL/L (136-145)
[2018-11-19] MEDS: cefTRIAXone 1 GM in D5W 55 ML IVPB SCH (09:56)
--- NOTE | 2018-11-19 10:18 | Pulmonology Progress Note ---
Assessment/Plan Assessment/Plan 1. Recurrent epistaxis. 2. Chronic Coumadin usage. 3. Chronic atrial fibrillation. 4. Permanent pacemaker. 5. Hypertension. 6. Gout. 7. Diabetes mellitus. 8. S/p Carotid surgery DISCUSSION: Nasal packing is in place. Continue empiric antibiotics. Continue home medications. Hold Coumadin. Seen by Cardiology. I will follow carefully as index clerk/tc operator. Seen by ENT For nasal packing removal today Dc planning Subjective Interval Events: For nasal packing removal today Constitutional: Reports: no symptoms HEENT: Repors: no symptoms Respiratory: Reports: no symptoms Cardiovascular: Reports: no symptoms Gastrointestinal/Abdominal: Reports: no symptoms Genitourinary: Reports: no symptoms Allergies: Coded Allergies: BACITRACIN (Verified Allergy, Unknown, 11/16/18) NEOMYCIN (Verified Allergy, Unknown, 11/16/18) POLYMYXIN B (Verified Allergy, Unknown, 11/16/18) SULFA (SULFONAMIDE ANTIBIOTICS) (Verified Allergy, Unknown, 11/16/18) Objective Last 24 Hour Vital Signs Date Time Temp Pulse Resp B/P (MAP) Pulse Ox O2 Delivery O2 Flow Rate FiO2 11/19/18 08:28 82 136/73 11/19/18 08:26 136/73 11/19/18 08:00 98.2 82 20 136/73 (94) 98 11/19/18 04:00 98.2 85 20 113/65 (81) 96 11/19/18 04:00 90 11/19/18 00:00 98.2 80 18 108/71 (83) 98 11/19/18 00:00 80 11/18/18 21:00 Room Air 11/18/18 20:00 98.2 81 22 112/74 (87) 98 11/18/18 20:00 81 11/18/18 16:00 80 11/18/18 16:00 97.0 67 22 105/66 (79) 97 11/18/18 12:00 87 11/18/18 12:00 98.0 92 22 107/64 (78) 97 Intake and Output 11/18/18 11/19/18 19:00 07:00 Intake Total 240 ml Balance 240 ml Intake Oral 240 ml # Voids 4 2 # Bowel Movements 1 General Appearance: no acute distress HEENT: normocephalic Respiratory/Chest: chest wall non-tender, lungs clear Cardiovascular: normal peripheral pulses, normal rate Abdomen: normal bowel sounds Laboratory Tests 11/19/18 07:13: Sodium Level 136, Potassium Level 4.5, Chloride Level 101, Carbon Dioxide Level 28, Anion Gap 7, Blood Urea Nitrogen 26H, Creatinine 1.0, Estimat Glomerular Filtration Rate > 60, Glucose Level 166H, Calcium Level 9.7, Magnesium Level 1.9 , Pro-B-Type Natriuretic Peptide 589H Current Medications Medications (Trade) Dose Ordered Sig/Riccardo Route PRN Reason Start Time Stop Time Status Last Admin Dose Admin Acetaminophen/ Hydrocodone Bitart ([place] 5/325) 1 tab Q6H PRN ORAL For Pain 11/17/18 06:15 11/24/18 06:14 Allopurinol (Zyloprim) 100 mg TID ORAL 11/17/18 09:00 12/17/18 08:59 11/19/18 08:25 Atorvastatin Calcium (Lipitor) 20 mg BEDTIME ORAL 11/17/18 21:00 12/17/18 20:59 11/18/18 20:52 Ceftriaxone Sodium 1 gm/ Dextrose 55 ml @ 110 mls/hr Q24H IVPB 11/17/18 10:00 11/24/18 09:59 11/19/18 09:56 Furosemide (Lasix) 80 mg DAILY ORAL 11/17/18 09:00 12/17/18 08:59 11/19/18 08:28 Indomethacin (Indocin) 25 mg DAILY ORAL 11/17/18 09:00 12/17/18 08:59 11/19/18 08:25 Lisinopril (Zestril) 10 mg DAILY ORAL 11/17/18 09:45 12/17/18 09:44 11/19/18 08:26 Metformin HCl (Glucophage) 500 mg BIAC ORAL 11/17/18 09:00 12/17/18 08:59 11/19/18 06:25 Metoprolol Succinate (Toprol XL) 100 mg DAILY ORAL 11/17/18 09:00 12/17/18 08:59 11/19/18 08:28 Potassium Chloride (K-Dur) 20 meq DAILY ORAL 11/17/18 09:00 12/17/18 08:59 11/19/18 08:24 Repaglinide (Prandin) 2 mg DAILY ORAL 11/17/18 09:00 12/17/18 08:59 11/19/18 08:24 Zolpidem Tartrate (Ambien) 5 mg HSPRN PRN ORAL Insomnia 11/17/18 21:00 11/24/18 20:59 11/19/18 00:28 Neri Encinas MD Nov 19, 2018 10:18
--- NOTE | 2018-11-19 10:33 | Consultation ---
History of Present Illness General Date patient seen: Nov 19, 2018 Time patient seen: 09:11 Chief Complaint: Nosebleed Referring physician: Kamini Reason for Consultation: Management of nasal packing placed by OM-ER Present Illness HPI pt. well know to me-chronic history of epistaxis with numerous pacing incidents. Pt. has many medical problems, Lupus, Carotid arteriy occlusion and A-fib, hip issues. Elevated coags secondary to medical treatment. Allergies: Coded Allergies: BACITRACIN (Verified Allergy, Unknown, 11/16/18) NEOMYCIN (Verified Allergy, Unknown, 11/16/18) POLYMYXIN B (Verified Allergy, Unknown, 11/16/18) SULFA (SULFONAMIDE ANTIBIOTICS) (Verified Allergy, Unknown, 11/16/18) Medication History Scheduled Allopurinol* (Allopurinol*), 100 MG ORAL DAILY, (Reported) Aspirin (Aspirin EC), 81 MG ORAL DAILY, (Reported) Atorvastatin (Lipitor), 40 MG ORAL BID, (Reported) Furosemide* (Lasix*), 80 MG ORAL DAILY, (Reported) Hydrochlorothiazide* (Hydrochlorothiazide*), 200 MG ORAL BID, (Reported) Indomethacin (Indomethacin), 25 MG PO BID, (Reported) Lisinopril (Lisinopril*), 10 MG ORAL DAILY, (Reported) Metformin Hcl* (Metformin Hcl*), 1,000 MG ORAL BIDAC, (Reported) Metolazone (Metolazone), 5 MG PO ONCE A WEEK, (Reported) Metoprolol Succinate* (Metoprolol Succinate*), 100 MG ORAL DAILY, (Reported) Potassium Chloride (Potassium Chloride), 20 MEQ PO DAILY, (Reported) Repaglinide (Repaglinide), 2 MG PO TID, (Reported) Warfarin Sod* (Warfarin Sod*), 5 MG ORAL DAILY, (Reported) Discontinued Medications Amoxicillin* (Amoxil*), 500 MG ORAL EVERY 8 HOURS Discontinued Reason: MD discontinued med Amoxicillin/Potassium Clav 875-125* (Augmentin 875-125 Tablet*), 1 TAB ORAL TWICE A DAY Discontinued Reason: MD discontinued med Atorvastatin Calcium* (Atorvastatin Calcium*), 40 MG ORAL BEDTIME, (Reported) Discontinued Reason: MD discontinued med Glimepiride* (Glimepiride*), 5 MG ORAL BEFORE BREAKFAST, (Reported) Discontinued Reason: MD discontinued med Hydrocodone Bit/Acetaminophen 5-325* ([place] 5-325*), 1 TAB ORAL Q6H PRN for For Pain Discontinued Reason: discontinued med Levofloxacin* (Levaquin*), 500 MG ORAL DAILY Discontinued Reason: MD discontinued med Repaglinide (Repaglinide), 5 MG PO DAILY, (Reported) Discontinued Reason: Medication dose changed Patient History Healthcare decision maker Resuscitation status Full Code Advanced Directive on File Physical Exam Last 24 Hour Vital Signs Date Time Temp Pulse Resp B/P (MAP) Pulse Ox O2 Delivery O2 Flow Rate FiO2 11/19/18 08:28 82 136/73 11/19/18 08:26 136/73 11/19/18 08:00 98.2 82 20 136/73 (94) 98 11/19/18 04:00 98.2 85 20 113/65 (81) 96 11/19/18 04:00 90 11/19/18 00:00 98.2 80 18 108/71 (83) 98 11/19/18 00:00 80 11/18/18 21:00 Room Air 11/18/18 20:00 98.2 81 22 112/74 (87) 98 11/18/18 20:00 81 11/18/18 16:00 80 11/18/18 16:00 97.0 67 22 105/66 (79) 97 11/18/18 12:00 87 11/18/18 12:00 98.0 92 22 107/64 (78) 97 Intake and Output 11/18/18 11/19/18 19:00 07:00 Intake Total 240 ml Balance 240 ml Intake Oral 240 ml # Voids 4 2 # Bowel Movements 1 Laboratory Tests Test 11/19/18 07:13 Sodium Level 136 MMOL/L (136-145) Potassium Level 4.5 MMOL/L (3.5-5.1) Chloride Level 101 MMOL/L (98-107) Carbon Dioxide Level 28 MMOL/L (21-32) Anion Gap 7 mmol/L (5-15) Blood Urea Nitrogen 26 mg/dL (7-18) H Creatinine 1.0 MG/DL (0.55-1.30) Estimat Glomerular Filtration Rate > 60 mL/min (>60) Glucose Level 166 MG/DL (74-106) H Calcium Level 9.7 MG/DL (8.5-10.1) Magnesium Level 1.9 MG/DL (1.8-2.4) Pro-B-Type Natriuretic Peptide 589 pg/mL (0-125) H Height (Feet): 6 Height (Inches): 6.00 Weight (Pounds): 277 Medications Current Medications Medications (Trade) Dose Ordered Sig/Riccardo Route PRN Reason Start Time Stop Time Status Last Admin Dose Admin Acetaminophen/ Hydrocodone Bitart ([place] 5/325) 1 tab Q6H PRN ORAL For Pain 11/17/18 06:15 11/24/18 06:14 Allopurinol (Zyloprim) 100 mg TID ORAL 11/17/18 09:00 12/17/18 08:59 11/19/18 08:25 Atorvastatin Calcium (Lipitor) 20 mg BEDTIME ORAL 11/17/18 21:00 12/17/18 20:59 11/18/18 20:52 Ceftriaxone Sodium 1 gm/ Dextrose 55 ml @ 110 mls/hr Q24H IVPB 11/17/18 10:00 11/24/18 09:59 11/19/18 09:56 Furosemide (Lasix) 80 mg DAILY ORAL 11/17/18 09:00 12/17/18 08:59 11/19/18 08:28 Indomethacin (Indocin) 25 mg DAILY ORAL 11/17/18 09:00 12/17/18 08:59 11/19/18 08:25 Lisinopril (Zestril) 10 mg DAILY ORAL 11/17/18 09:45 12/17/18 09:44 11/19/18 08:26 Metformin HCl (Glucophage) 500 mg BIAC ORAL 11/17/18 09:00 12/17/18 08:59 11/19/18 06:25 Metoprolol Succinate (Toprol XL) 100 mg DAILY ORAL 11/17/18 09:00 12/17/18 08:59 11/19/18 08:28 Potassium Chloride (K-Dur) 20 meq DAILY ORAL 11/17/18 09:00 12/17/18 08:59 11/19/18 08:24 Repaglinide (Prandin) 2 mg DAILY ORAL 11/17/18 09:00 12/17/18 08:59 11/19/18 08:24 Zolpidem Tartrate (Ambien) 5 mg HSPRN PRN ORAL Insomnia 11/17/18 21:00 11/24/18 20:59 11/19/18 00:28 Assessment/Plan Status: stable Status Narrative I was sick with a fever when I was consulted 3 days ago. I spoke with Dr. Suárez suggested pt. be transferred to [facility] and taken care of there by ENT team-I would speak with them. Pt. did not want to do. Yesterday I was made aware he was not transferred and spoke with nurse. He was no longer bleeding. I suggest she remove 2cc from RhinoRocket-which she did. I then was him this AM, no further epistaxis. I then removed the remaining air in RhinoRockets. I then left in place for 30 minutes. No bleeding. Then I came back and removed. No bleeding for as of 20 minutes later. Assessment/Plan: 1. Keep overnight, if no bleeding discharge in AM per Dr. Toure 2. I suggested pt. go to [facility] if bleeding in the future. 3. I will call radiology at [facility] re embolization and then get back to pt. 4. Above discussed with Dr. Suárez at nursing station. Silvestre Ballesteros MD Nov 19, 2018 10:33
--- NOTE | 2018-11-19 11:30 | NUR ---
RADIOLOGY DEPT., CHEST X-RAY DONE.-P.DYE
[2018-11-19 12:00] VITALS: BP 138/86
[2018-11-19 16:00] VITALS: BP 117/67
--- NOTE | 2018-11-19 19:23 | Cardiology Progress Note ---
Assessment/Plan Assessment/Plan 1. Recurrent epistaxis. 2. Coagulopathy secondary to Coumadin. anitplt for and nsaid use 3. Coronary artery disease, status post coronary artery bypass grafting. 4. Exertional dyspnea. 5. Permanent atrial fibrillation. 6. History of permanent pacemaker implantation. 7. Obstructive sleep apnea. 8. Hyperlipidemia. 9. Obesity 10. 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 could note be analyzed acei added and bb increased faina afib v pacing Subjective Cardiovascular: Denies: chest pain, lightheadedness Respiratory: Denies: shortness of breath Gastrointestinal/Abdominal: Denies: abdominal pain Genitourinary: Denies: burning Objective Last 24 Hour Vital Signs Date Time Temp Pulse Resp B/P (MAP) Pulse Ox O2 Delivery O2 Flow Rate FiO2 11/19/18 16:00 71 11/19/18 16:00 98.2 70 20 117/67 (84) 95 11/19/18 12:00 68 11/19/18 12:00 97.6 73 20 138/86 (103) 98 11/19/18 08:30 Room Air 11/19/18 08:28 82 136/73 11/19/18 08:26 136/73 11/19/18 08:00 75 11/19/18 08:00 98.2 82 20 136/73 (94) 98 11/19/18 04:00 98.2 85 20 113/65 (81) 96 11/19/18 04:00 90 11/19/18 00:00 98.2 80 18 108/71 (83) 98 11/19/18 00:00 80 11/18/18 21:00 Room Air 11/18/18 20:00 98.2 81 22 112/74 (87) 98 11/18/18 20:00 81 General Appearance: no apparent distress, alert Neck: supple Cardiovascular: normal rate Respiratory/Chest: lungs clear Abdomen: normal bowel sounds, non tender, soft Extremities: no swelling Intake and Output 11/18/18 11/19/18 18:59 06:59 Intake Total 240 ml Balance 240 ml Intake Oral 240 ml # Voids 4 2 # Bowel Movements 1 Laboratory Tests Test 11/19/18 07:13 Sodium Level 136 MMOL/L (136-145) Potassium Level 4.5 MMOL/L (3.5-5.1) Chloride Level 101 MMOL/L (98-107) Carbon Dioxide Level 28 MMOL/L (21-32) Anion Gap 7 mmol/L (5-15) Blood Urea Nitrogen 26 mg/dL (7-18) H Creatinine 1.0 MG/DL (0.55-1.30) Estimat Glomerular Filtration Rate > 60 mL/min (>60) Glucose Level 166 MG/DL (74-106) H Calcium Level 9.7 MG/DL (8.5-10.1) Magnesium Level 1.9 MG/DL (1.8-2.4) Pro-B-Type Natriuretic Peptide 589 pg/mL (0-125) H Ludwig Landrum MD Nov 19, 2018 19:23
--- NOTE | 2018-11-19 19:27 | NUR ---
HAND-OFF: Report given to NORMAN Willis.
--- NOTE | 2018-11-19 19:28 | NUR ---
NURSE NOTES: NURSE NOTES: Received pt from NORMAN Mena. Pt is awake and resting in bed. IV site intact. Bed in lowest position, locked, and call light within reach. Will continue with plan of care.
[2018-11-19 20:00] VITALS: BP 112/68
[2018-11-19] MEDS: Atorvastatin 20mg tab ORAL SCH (21:33)
[2018-11-20 04:00] VITALS: BP 144/80
[2018-11-20] MEDS: metFORMIN 500mg tab ORAL SCH (06:57)
--- NOTE | 2018-11-20 07:52 | NUR ---
NURSE NOTES: Patient is alert and oriented. No reports of epistaxis. No reports of discomfort. Side rails are upx2, bed is locked, in lowest position, and call light is within reach. Will continue to monitor.
--- NOTE | 2018-11-20 07:53 | NUR ---
HAND-OFF: Report given to NORMAN Mena. Endorsed plan of care.
[2018-11-20 08:00] VITALS: BP 133/92
[2018-11-20 08:18] LABS: BASOPHILS % (AUTO) 1.9 % (0.0-2.0); EOSINOPHILS % (AUTO) 6.4 % (0.0-3.0); HEMATOCRIT 35.2 % (42.0-52.0); HEMOGLOBIN 12.1 G/DL (14.2-18.0); LYMPHOCYTES % (AUTO) 15.2 % (20.0-45.0); MEAN CORPUSCULAR VOLUME 81 FL (80-99); MONOCYTES % (AUTO) 7.2 % (1.0-10.0); NEUTROPHILS % (AUTO) 69.4 % (45.0-75.0); PLATELET COUNT 146 K/UL (150-450); RED BLOOD COUNT 4.34 M/UL (4.70-6.10); RED CELL DISTRIBUTION WIDTH 13.8 % (11.6-14.8); WHITE BLOOD COUNT 8.4 K/UL (4.8-10.8)
[2018-11-20] MEDS: Furosemide 80mg tab ORAL SCH (08:32)
[2018-11-20] MEDS: Repaglinide 1mg tab ORAL SCH (08:32)
[2018-11-20] MEDS: Indomethacin 25mg cap ORAL SCH (08:32)
[2018-11-20] MEDS: Allopurinol 100mg Tab ORAL SCH ×2 (08:32→12:44)
[2018-11-20] MEDS: Metoprolol Succinate XL 100mg tab ORAL SCH (08:33)
[2018-11-20] MEDS: Lisinopril 10mg tab ORAL SCH (08:33)
[2018-11-20 08:35] LABS: ANION GAP 8 mmol/L (5-15); BLOOD UREA NITROGEN 22 mg/dL (7-18); CALCIUM 9.2 MG/DL (8.5-10.1); CARBON DIOXIDE 27 MMOL/L (21-32); CHLORIDE 102 MMOL/L (98-107); CREATININE 0.9 MG/DL (0.55-1.30); POTASSIUM 3.8 MMOL/L (3.5-5.1); SODIUM 137 MMOL/L (136-145)
--- NOTE | 2018-11-20 08:35 | Pulmonology Progress Note ---
Assessment/Plan Assessment/Plan 1. Recurrent epistaxis. 2. Chronic Coumadin usage. 3. Chronic atrial fibrillation. 4. Permanent pacemaker. 5. Hypertension. 6. Gout. 7. Diabetes mellitus. 8. S/p Carotid surgery DISCUSSION: Nasal packing removed. Continue empiric antibiotics. Continue home medications. Back on Coumadin. Seen by Cardiology. 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 Seen by ENT Dc planning Subjective Interval Events: No new events; packing removed Constitutional: Reports: no symptoms HEENT: Repors: no symptoms Respiratory: Reports: no symptoms Cardiovascular: Reports: no symptoms Gastrointestinal/Abdominal: Reports: no symptoms Genitourinary: Reports: no symptoms Allergies: Coded Allergies: BACITRACIN (Verified Allergy, Unknown, 11/16/18) NEOMYCIN (Verified Allergy, Unknown, 11/16/18) POLYMYXIN B (Verified Allergy, Unknown, 11/16/18) SULFA (SULFONAMIDE ANTIBIOTICS) (Verified Allergy, Unknown, 11/16/18) Objective Last 24 Hour Vital Signs Date Time Temp Pulse Resp B/P (MAP) Pulse Ox O2 Delivery O2 Flow Rate FiO2 11/20/18 08:33 133/92 11/20/18 08:33 79 133/92 11/20/18 04:00 97.7 88 20 144/80 (101) 97 11/20/18 04:00 88 11/20/18 00:00 73 11/20/18 00:00 73 11/19/18 21:00 Room Air 11/19/18 20:00 70 11/19/18 20:00 98.2 70 20 112/68 (83) 95 11/19/18 16:00 71 11/19/18 16:00 98.2 70 20 117/67 (84) 95 11/19/18 12:00 68 11/19/18 12:00 97.6 73 20 138/86 (103) 98 Intake and Output 11/19/18 11/20/18 19:00 07:00 Intake Total 300 ml 240 ml Output Total 502 ml Balance -202 ml 240 ml Intake Oral 300 ml 240 ml Output Urine Total 500 ml Stool Total 2 ml # Voids 1 General Appearance: no acute distress HEENT: normocephalic Respiratory/Chest: lungs clear Cardiovascular: normal peripheral pulses Abdomen: normal bowel sounds Laboratory Tests 11/20/18 06:37: White Blood Count 8.4, Red Blood Count 4.34L, Hemoglobin 12.1L, Hematocrit 35.2L , Mean Corpuscular Volume 81, Mean Corpuscular Hemoglobin 27.9, Mean Corpuscular Hemoglobin Concent 34.4, Red Cell Distribution Width 13.8, Platelet Count 146L, Mean Platelet Volume 8.0, Neutrophils (%) (Auto) 69.4, Lymphocytes ( %) (Auto) 15.2L, Monocytes (%) (Auto) 7.2, Eosinophils (%) (Auto) 6.4H, Basophils (%) (Auto) 1.9, Prothrombin Time [Pending], Prothromb Time International Ratio [Pending], Sodium Level [Pending], Potassium Level [Pending] , Chloride Level [Pending], Carbon Dioxide Level [Pending], Blood Urea Nitrogen [Pending], Creatinine [Pending], Estimat Glomerular Filtration Rate [Pending], Glucose Level [Pending], Calcium Level [Pending] Current Medications Medications (Trade) Dose Ordered Sig/Riccardo Route PRN Reason Start Time Stop Time Status Last Admin Dose Admin Acetaminophen/ Hydrocodone Bitart ([place] 5/325) 1 tab Q6H PRN ORAL For Pain 11/17/18 06:15 11/24/18 06:14 Allopurinol (Zyloprim) 100 mg TID ORAL 11/17/18 09:00 12/17/18 08:59 11/20/18 08:32 Atorvastatin Calcium (Lipitor) 20 mg BEDTIME ORAL 11/17/18 21:00 12/17/18 20:59 11/19/18 21:33 Ceftriaxone Sodium 1 gm/ Dextrose 55 ml @ 110 mls/hr Q24H IVPB 11/17/18 10:00 11/24/18 09:59 11/19/18 09:56 Furosemide (Lasix) 80 mg DAILY ORAL 11/17/18 09:00 12/17/18 08:59 11/20/18 08:32 Indomethacin (Indocin) 25 mg DAILY ORAL 11/17/18 09:00 12/17/18 08:59 11/20/18 08:32 Lisinopril (Zestril) 10 mg DAILY ORAL 11/17/18 09:45 12/17/18 09:44 11/20/18 08:33 Metformin HCl (Glucophage) 500 mg BIAC ORAL 11/17/18 09:00 12/17/18 08:59 11/20/18 06:57 Metoprolol Succinate (Toprol XL) 100 mg DAILY ORAL 11/17/18 09:00 12/17/18 08:59 11/20/18 08:33 Potassium Chloride (K-Dur) 20 meq DAILY ORAL 11/17/18 09:00 12/17/18 08:59 11/20/18 08:32 Repaglinide (Prandin) 2 mg DAILY ORAL 11/17/18 09:00 12/17/18 08:59 11/20/18 08:32 Warfarin Sodium (Coumadin per pharmacy) 1 ea DAILY PRN MISC Per rx protocol 11/19/18 20:15 12/19/18 20:14 Zolpidem Tartrate (Ambien) 5 mg HSPRN PRN ORAL Insomnia 11/17/18 21:00 11/24/18 20:59 11/19/18 00:28 Neri Encinas MD Nov 20, 2018 08:35
[2018-11-20] MEDS: cefTRIAXone 1 GM in D5W 55 ML IVPB SCH (10:10)
[2018-11-20 12:00] VITALS: BP 143/77
--- NOTE | 2018-11-20 13:38 | NUR ---
NURSE NOTES: Patient discharged Home via private vehicle. Discharge instructions given to patient. IV removed. Belongings reviewed and accounted for. Patient stable upon discharge.
[2018-11-20] MEDS ORDERED: Warfarin Sodium 5mg ORAL SCH (17:00)
--- NOTE | 2018-11-20 17:45 | Diagnostic Imaging Report ---
Indication: Dyspnea Comparison: None A single view chest radiograph was obtained. Findings: Sternotomy and pacemaker noted. The heart is mildly enlarged. Lungs are essentially clear. There is mild left basal atelectasis Impression: Mild left basal atelectasis Cardiomegaly
--- NOTE | 2018-11-23 10:56 | Discharge Summary ---
Discharge Summary Discharge Summary _ DATE OF ADMISSION: November 17, 2018 DATE OF DISCHARGE: November 20, 2018 DISCHARGED BY: Dr. Encinas REASON FOR ADMISSION: 67 years old male with past medical history of chronic atrial fibrillation, coronary artery disease, status post CABG, permanent pacemaker, chronic anticoagulation with Coumadin, diabetes mellitus, hypertension, obstructive sleep apnea on CPAP, gout, previous history of epistaxis, requiring admission in the hospital in October 2017, presented again for severe epistaxis. Patient recently underwent carotid surgery. Nasal packing was placed in the emergency department. Upon evaluation vital signs were stable. Laboratory work-up revealed hemoglobin 15.2, hematocrit 43.8. Platelet count 182. INR 1.3. Stable electrolytes and renal parameters. Stable LFT. Albumin 3.8. EKG revealed V pacing with underlying atrial fibrillation with controlled ventricular rate. Patient subsequently was admitted to telemetry floor for further management. CONSULTANTS: paper box maker Dr. Landrum ENT specialist Dr. Ballesteros [facility] COURSE: Patient admitted to telemetry floor. Home medication resumed. Coumadin obviously was in hold. Cardiology and ENT consults were requested. Performance Architect seen and evaluated patient. Patient was off antiplatelets and anticoagulation and to be resumed , when it is safe. Performance Architect recommended in future to consider Watchman device. NOAC s were discussed with patient as well , since patient was on Coumadin for many years. Echocardiogram revealed hypokinesis of the septum and distal inferior wall . Left ventricular ejection fraction cannot be estimated. Mild left ventricular hypertrophy. Moderate biatrial enlargement. Right ventricular systolic pressure of 21. Per paper box maker , echocardiogram was technically difficult and wall motion could not be analyzed. Patient remained on telemetry in atrial fibrillation with V pacing, with controlled ventricular rate. Blood pressure was closely monitored. Anti-failure regimen was continued with the beta-jorge (dose was increased), ALEKSANDER inhibitor was added. Diuretic was continued with close monitoring of volumes and cardiorenal parameters. ENT specialist seen and evaluated patient. Patient was no longer bleeding. 2 cc were removed from Rhino Rocket. No further epistaxis. Remaining air in the Rhino Rocket was removed. No bleeding. Rhino Rockets left in place for 30 minutes. No bleeding . Rhino Rockets were removed no bleeding after 20 minutes later. ENT specialist recommended to keep overnight, and if no bleeding , then discharge in the morning. Patient was recommended to go to [facility] if bleeding reoccurs in the future. ENT specialist will arrange for embolization by interventional radiology and then get back to the patient with details. Performance Architect and ENT specialist discussed appropriate anticoagulation start. ENT cleared patient to start Coumadin. Patient was instructed to go to [facility], if bleeding recur. Otherwise await from ENT specialist regarding details for recommended embolization procedure at [facility] . Supportive care provided. Pain management was addressed as needed. Blood sugar was managed with Prandin. Sliding scale of insulin was on board as needed. Patient clinically stabilized and was ready for discharge home. FINAL DIAGNOSES: Recurrent epistaxis Chronic Coumadin usage Chronic atrial fibrillation Permanent pacemaker Hypertension Gout Diabetes mellitus Status post recent carotid surgery endarterectomy Obesity Hyperlipidemia Obstructive sleep apnea DISCHARGE MEDICATIONS: See Medication Reconciliation list. DISCHARGE INSTRUCTIONS: Patient was discharged home . Follow up with primary care provider in one week. I have been assigned to dictate discharge summary for this account. I was not involved in the patient's management. Anat Walker NP Nov 23, 2018 10:56
== END 2018-11-20 13:10 | disposition home or self-care (01) | DRG 813 ==
LOC: EMR 21:30 → 2E 11-17 00:12 → EDBEDREQ 11-17 03:21
PROC: 2Y41X5Z Packing of Nasal Region using Packing Material (ICD-10-PCS; principal; 2018-11-17)
DX: D68.32 Hemorrhagic disorder due to extrinsic circulating anticoagulants (principal); I48.2 Chronic atrial fibrillation; T45.515A Adverse effect of anticoagulants, initial encounter; Y92.009 Unspecified place in unspecified non-institutional (private) residence as the place of occurrence of the external cause; R04.0 Epistaxis; L71.1 Rhinophyma; Z79.01 Long term (current) use of anticoagulants; Z95.0 Presence of cardiac pacemaker; I10 Essential (primary) hypertension; M10.9 Gout, unspecified; Z88.1 Allergy status to other antibiotic agents; Z88.2 Allergy status to sulfonamides; Z88.8 Allergy status to other drugs, medicaments and biological substances; E66.9 Obesity, unspecified; I25.10 Atherosclerotic heart disease of native coronary artery without angina pectoris; G47.33 Obstructive sleep apnea (adult) (pediatric); F17.200 Nicotine dependence, unspecified, uncomplicated; M32.9 Systemic lupus erythematosus, unspecified; Z79.84 Long term (current) use of oral hypoglycemic drugs; Z79.82 Long term (current) use of aspirin; Z68.32 Body mass index [BMI] 32.0-32.9, adult
CPT/HCPCS: 36415; 71045; 80048; 80053; 83735; 83880; 85025; 85610; 85730; 93005; 93306; 99285; J8499

== ENCOUNTER 2019-07-29 16:38 | Inpatient (IN) | payer MEDICARE, BC ==
[~2019-07-29] VITALS: Ht 195.6 cm; Wt 117.9 kg
[~2019-07-29 16:38] MED LIST changes: +ASPIRIN-LOW81 MG ORAL; +GLIMEPIRIDE1 MG ORAL; +HYDROCHLOROTHIA50 MG ORAL; +LIPITOR80 MG ORAL; +LISINOPRIL5 MG ORAL; +METOLAZONE5 MG PO
--- NOTE | 2019-07-29 17:04 | NUR ---
ED Nurse Note: Pt ambulated to ed with walker, stating "i was [facility] yesterday they told me i have bronchitis but no pneumonia, aleks been coughing x 1 month and every time i cough really hard my nose bleeds, i had the vessels in my nose cautrized 1 month ago too."
[2019-07-29] MEDS ORDERED: Silver Nitrate Stick TOPIC ONE (17:15)
[2019-07-29] MEDS ORDERED: Oxymetazoline 0.05% Na Spray 30ml NASAL ONE (17:15)
--- NOTE | 2019-07-29 17:28 | Emergency Room Report ---
History of Present Illness General Chief Complaint: Upper Respiratory Illness Source: Patient, Medical Record Present Illness HPI 68-year-old male history of Coumadin use, for atrial fibrillation presents with recurrent nosebleeds over the past month, patient states that he was seen at [facility] yesterday and was discharged because his nosebleed resolved, states this morning he had nosebleeding resolved with pressure severity was mild, lasting a few minutes, patient states that he still has a slow trickle no shortness of breath no fevers no chills, he does endorse a dry cough. Additionally speaking to his primary care doctor patient has been having recurrent falls confusion, taking the wrong medications, and was also sent to the hospital for admission for work-up of his confusion. Allergies: Coded Allergies: BACITRACIN (Verified Allergy, Unknown, 11/16/18) NEOMYCIN (Verified Allergy, Unknown, 11/16/18) POLYMYXIN B (Verified Allergy, Unknown, 11/16/18) SULFA (SULFONAMIDE ANTIBIOTICS) (Verified Allergy, Unknown, 11/16/18) Patient History Past Medical History: see triage record Reviewed Nursing Documentation: PMH: Agreed; PSxH: Agreed Nursing Documentation-PMH Past Medical History: No History, Except For Hx Cardiac Problems: Yes - atrial fibrillation Hx Hypertension: Yes - Gout, arthritis Hx Pacemaker: Yes Hx Asthma: No Hx COPD: No Hx Diabetes: Yes Hx Cancer: No Hx Gastrointestinal Problems: No Hx Dialysis: No Hx Neurological Problems: No Hx Cerebrovascular Accident: No Hx Seizures: No Hx Neurologic Surgery: No Hx Brain Shunt: No Review of Systems All Other Systems: negative except mentioned in HPI Physical Exam Vital Signs Date Time Temp Pulse Resp B/P (MAP) Pulse Ox O2 Delivery O2 Flow Rate FiO2 07/29/19 16:45 97.9 88 15 97/59 (72) 95 Room Air Sp02 EP Interpretation: reviewed, normal General Appearance: well appearing, no apparent distress, alert Head: normocephalic, atraumatic Eyes: bilateral eye PERRL, bilateral eye EOMI ENT: uvula midline, moist mucus membranes, nasal congestion, other - Left nare with some blood Neck: supple, thyroid normal, supple/symm/no masses Respiratory: lungs clear, no respiratory distress, no retraction, no accessory muscle use Cardiovascular #1: normal peripheral pulses, regular rate, rhythm, no edema, no gallop, no murmur Gastrointestinal: non tender, soft, no guarding, no rebound Musculoskeletal: normal inspection Neurologic: alert, oriented x3 Psychiatric: mood/affect normal Skin: no rash, warm/dry Procedures Additional Procedure Procedure Narrative Patient with mild bleeding of the left nare, cauterized, patient tolerated procedure well Medical Decision Making Diagnostic Impression: Primary Impression: Epistaxis Additional Impressions: Altered mental status Qualified Codes: R41.82 - Altered mental status, unspecified Confusion Failure to thrive Qualified Codes: R62.7 - Adult failure to thrive ER Course 68-year-old male history of hypertension history of atrial fibrillation presents with epistaxis of the left nares additionally patient has also been found to have increasing confusion alteration of mental status, patient seen was seen at an outside hospital Patient was sent to be admitted for his worsening confusion and failure to thrive, We will admit patient because he is not safe for discharge Patient admitted to Dr. Encinas Laboratory Tests Test 07/29/19 18:15 White Blood Count 6.5 K/UL (4.8-10.8) Red Blood Count 5.23 M/UL (4.70-6.10) Hemoglobin 14.4 G/DL (14.2-18.0) Hematocrit 44.8 % (42.0-52.0) Mean Corpuscular Volume 86 FL (80-99) Mean Corpuscular Hemoglobin 27.5 PG (27.0-31.0) Mean Corpuscular Hemoglobin Concent 32.1 G/DL (32.0-36.0) Red Cell Distribution Width 14.0 % (11.6-14.8) Platelet Count 97 K/UL (150-450) L Mean Platelet Volume 12.4 FL (6.5-10.1) H Neutrophils (%) (Auto) % (45.0-75.0) Lymphocytes (%) (Auto) % (20.0-45.0) Monocytes (%) (Auto) % (1.0-10.0) Eosinophils (%) (Auto) % (0.0-3.0) Basophils (%) (Auto) % (0.0-2.0) Differential Total Cells Counted 100 Neutrophils % (Manual) 70 % (45-75) Lymphocytes % (Manual) 13 % (20-45) L Monocytes % (Manual) 13 % (1-10) H Eosinophils % (Manual) 2 % (0-3) Basophils % (Manual) 2 % (0-2) Band Neutrophils 0 % (0-8) Platelet Estimate Decreased L Platelet Morphology Normal Red Blood Cell Morphology Normal Prothrombin Time 12.5 SEC (9.30-11.50) H Prothrombin Time INR 1.2 (0.9-1.1) H Activated Partial Thromboplast Time 30 SEC (23-33) Urine Color Pale yellow Urine Appearance Clear Urine pH 5 (4.5-8.0) Urine Specific [place] 1.010 (1.005-1.035) Urine Protein Negative (NEGATIVE) Urine Glucose (UA) Negative (NEGATIVE) Urine Ketones Negative (NEGATIVE) Urine Blood Negative (NEGATIVE) Urine Nitrite Negative (NEGATIVE) Urine Bilirubin Negative (NEGATIVE) Urine Urobilinogen Normal MG/DL (0.0-1.0) Urine Leukocyte Esterase Negative (NEGATIVE) Sodium Level 137 MMOL/L (136-145) Potassium Level 4.5 MMOL/L (3.5-5.1) Chloride Level 99 MMOL/L (98-107) Carbon Dioxide Level 28 MMOL/L (21-32) Anion Gap 10 mmol/L (5-15) Blood Urea Nitrogen 32 mg/dL (7-18) H Creatinine 1.1 MG/DL (0.55-1.30) Estimate Glomerular Filtration Rate > 60 mL/min (>60) Glucose Level 130 MG/DL (74-106) H Calcium Level 9.1 MG/DL (8.5-10.1) Phosphorus Level 3.5 MG/DL (2.5-4.9) Magnesium Level 1.8 MG/DL (1.8-2.4) Total Bilirubin 0.5 MG/DL (0.2-1.0) Aspartate Amino Transferase (AST) 27 U/L (15-37) Alanine Aminotransferase (ALT) 29 U/L (12-78) Alkaline Phosphatase 88 U/L (46-116) Pro-B-Type Natriuretic Peptide 1836 pg/mL (0-125) H Total Protein 7.4 G/DL (6.4-8.2) Albumin 3.6 G/DL (3.4-5.0) Globulin 3.8 g/dL Albumin/Globulin Ratio 0.9 (1.0-2.7) L Lipase 305 U/L (73-393) Thyroid Stimulating Hormone (TSH) 1.649 uiU/mL (0.358-3.740) Free Thyroxine 1.29 NG/DL (0.76-1.46) Free Triiodothyronine 2.4 pg/mL (2.3-4.2) EKG Diagnostic Results EKG Time: 18:02 EP Interpretation: V paced, rate 80, QTc 4 9, no acute ST elevations, normal axis Rhythm Strip Diag. Results Rhythm Strip Time: 19:31 EP Interpretation: yes Rate: 81 Rhythm: other - paced rhythm Chest X-Ray Diagnostic Results Chest X-Ray Diagnostic Results : Chest X-Ray Ordered: Yes # of Views/Limited/Complete: 1 View Indication: Chest Pain EP Interpretation: Yes Interpretation: no consolidation, no effusion, no pneumothorax, no acute cardiopulmonary disease Impression: Other - No acute cardiopulmonary processes, pacemaker seen Last Vital Signs Date Time Temp Pulse Resp B/P (MAP) Pulse Ox O2 Delivery O2 Flow Rate FiO2 07/29/19 17:05 88 22 96 Room Air 07/29/19 16:45 97.9 97/59 (72) Disposition: ADMITTED INPATIENT Condition: Stable Pablito Alcala MD Jul 29, 2019 17:28
--- NOTE | 2019-07-29 18:26 | NUR ---
ED Nurse Note: PT LEFT FOR CT
[2019-07-29 18:27] LABS: APPEARANCE,URINE CLEAR; BILIRUBIN, URINE NEGATIVE (NEGATIVE); COLOR,URINE PALE YELLOW; GLUCOSE, URINE (UA) NEGATIVE (NEGATIVE); KETONES,URINE NEGATIVE (NEGATIVE); LEUKOCYTE ESTERASE ,URINE NEGATIVE (NEGATIVE); NITRITE,URINE NEGATIVE (NEGATIVE); PH,URINE 5 (4.5-8.0); PROTEIN,URINE NEGATIVE (NEGATIVE); UROBILINOGEN,URINE NORMAL MG/DL (0.0-1.0)
[2019-07-29 18:31] LABS: HEMATOCRIT 44.8 % (42.0-52.0); HEMOGLOBIN 14.4 G/DL (14.2-18.0); MEAN CORPUSCULAR VOLUME 86 FL (80-99); PLATELET COUNT 97 K/UL (150-450); RED BLOOD COUNT 5.23 M/UL (4.70-6.10); WHITE BLOOD COUNT 6.5 K/UL (4.8-10.8)
[2019-07-29 18:36] LABS: ANION GAP 10 mmol/L (5-15); BLOOD UREA NITROGEN 32 mg/dL (7-18); CALCIUM 9.1 MG/DL (8.5-10.1); CARBON DIOXIDE 28 MMOL/L (21-32); CHLORIDE 99 MMOL/L (98-107); CREATININE 1.1 MG/DL (0.55-1.30); POTASSIUM 4.5 MMOL/L (3.5-5.1); SODIUM 137 MMOL/L (136-145)
[2019-07-29 18:37] VITALS: BP 108/62
[2019-07-29 18:50] LABS: ALANINE AMINOTRANSFERASE 29 U/L (12-78); ALBUMIN 3.6 G/DL (3.4-5.0); ALBUMIN/GLOBULIN RATIO 0.9 (1.0-2.7); ALKALINE PHOSPHATASE 88 U/L (46-116); ASPARTATE AMINO TRANSFERASE 27 U/L (15-37); BILIRUBIN,TOTAL 0.5 MG/DL (0.2-1.0); PHOSPHORUS 3.5 MG/DL (2.5-4.9)
--- NOTE | 2019-07-29 18:51 | Diagnostic Imaging Report ---
Indication: Headache Technique: Contiguous 5 mm thick transaxial imaging of the head obtained in a Siemens Sensation [address] scanner. Soft tissue and bone windows generated. Automatic Exposure Control was utilized. Total Dose length Product (DLP): 1179.[address] Dose Index Volume (CTDIvol): 53.4 mGy Comparison: none Findings: There is moderate prominence of the ventricles, basal cisterns, and cerebral sulci consistent with atrophy. Moderate, nonspecific, white matter hypoattenuation is noted throughout the brain consistent with chronic small vessel disease. There is the suggestion of small lacunar infarcts in the thalamus and basal ganglia bilaterally. These are seen as tiny cystic foci. There is no midline shift, edema, acute hemorrhage, mass effect, or abnormal extra-axial fluid collections. Bones are unremarkable. Impression: No acute intracranial bleed, mass effect or edema. Moderate atrophy of the brain. Evidence of chronic small vessel disease involving white matter tracts. [facility] has communicated the preliminary results to the Emergency Department. Their findings are largely concordant with this report. The CT scanner at [facility] is accredited by the [employer] and the scans are performed using dose optimization techniques as appropriate to a performed exam including Automatic Exposure control.
--- NOTE | 2019-07-29 18:53 | NUR ---
ED Nurse Note: PT RETURNED FROM CT
--- NOTE | 2019-07-29 19:01 | NUR ---
HAND-OFF: Report given to LAXMI CERRATO RN.
[2019-07-29 19:09] LABS: INR 1.2 (0.9-1.1)
--- NOTE | 2019-07-29 19:14 | NUR ---
ED Nurse Note: RECEIVED REPORT FROM MYAH AUSTIN. ADRIANNE, IMAN. WILL CONTINUE TO MONITOR PATIENT. FAMILY AT BEDSIDE
[2019-07-29 19:15] VITALS: BP 107/63
--- NOTE | 2019-07-29 20:15 | NUR ---
ED Nurse Note: provided patient with nourishment per request
--- NOTE | 2019-07-29 22:00 | NUR ---
TRANSFER TO FLOOR: Patient transferred to 421- via gurney accompanied by notch machine operator in stable condition as ordered, per dr. Encinas . Report given to rn for 421-1. Belongings sent with patient
--- NOTE | 2019-07-29 22:50 | NUR ---
NURSE NOTES: Patient transferred to [facility] where the patient will be admitted. Report given to NORMAN Rodgers. Wound care pictures taken. RN on [facility] will be admitting the patient. Endorsed to the admitting RN to complete the wound assessment intervention.
--- NOTE | 2019-07-29 23:24 | NUR ---
NURSES NOTE: Received pt from NORMAN Hua at apprx [id number]. Pt is A/OX3, denies pain. No outward s/s of distress noted. Breathing pattern is even and unlabored on RA. VS within normal limits. Head to toe assessment performed. Dr Encinas called for admission orders. Pt has history of falls. at the bedside. All due meds will be given. Bed at lowest level, call light within reach. Pt will continue to be monitored.
[2019-07-30 04:00] VITALS: BP 152/84
[2019-07-30] MEDS: NovoLOG Insulin Flexpen SUBQ SCH ×4 (06:30→22:06)
[2019-07-30] MEDS: metFORMIN 500mg tab ORAL SCH ×2 (07:02→16:38)
[2019-07-30 07:22] LABS: INR 1.2 (0.9-1.1)
[2019-07-30 08:00] VITALS: BP 124/82
--- NOTE | 2019-07-30 08:33 | NUR ---
HAND OFF: Report given to NORMAN Sow.
--- NOTE | 2019-07-30 08:41 | NUR ---
NURSE NOTES: Received report from Liana AUSTIN. Patient is awake and oriented during rounds, no acute distress noted, reporting no pain at this time. IV intact, locked, patient's walker at bedside. Patient is high fall risk and refuses bed alarm, refuses to use urinal, and refuses to call for staff prior to getting out of bed, patient set off bed alarm this AM and demanded nursing staff turn alarm off despite education on hospital policy, safety, and high fall risk. Patient is wearing non-slip socks and does ambulate steadily with the assistance of his walker. Nursing cooking casing and drying supervisor Irena and charge nurse Andrew aware. Patient re-educated to call for assistance as needed, patient educated on use of his call light and call light is within reach. Side rails upx2, bed low and locked.
--- NOTE | 2019-07-30 08:50 | NUR ---
PT EVALUATION NOTE Patient seen for initial evaluation. Patient presents with generalized weakness which impairs patient's balance and ability to perform mobility skills safely. Patient able to perform bed mobility tasks and transfers with FWW and SBA. Patient able to ambulate 150 ft with SBA and FWW, slightly unsteady with steppage gait on the R. Patient will benefit from skilled inpatient PT intervention to address strength, balance and safety for improved level of independence with functional mobility. Anticipate discharge home once medically cleared by MD. No DME needs anticipated at this time, patient has SPC and FWW. Addendum: 07/30/19 at 1241 by TEE BRUCE PT Amended: Links added.
[2019-07-30] MEDS: Repaglinide 1mg tab ORAL SCH ×3 (09:00→17:22)
[2019-07-30] MEDS: Furosemide 40mg tab ORAL SCH (10:16)
[2019-07-30] MEDS: Metoprolol Succinate XL 100mg tab ORAL SCH (10:16)
[2019-07-30] MEDS: Lisinopril 10mg tab ORAL SCH (10:17)
[2019-07-30] MEDS: Allopurinol 100mg Tab ORAL SCH (10:17)
[2019-07-30 12:00] VITALS: BP 137/79
--- NOTE | 2019-07-30 12:42 | NUR ---
CASE MANAGEMENT: INITIAL REVIEW 68YR OLD MALE FROM HOME CC: UPPER RESP ILLNESS SI:EPISTAXIS . CONFUSION . AMS . FAILURE TO THRIVE 97.9 88 15 97/59 95% ON RA PLT 97 BUN 32 BG 130 [id number] IS:IVF NS BOLUS X1 SILVER NITRATE TP X1 AFRIN NS X1 CT HEAD CHEST X-RAY \: 3E MED SURG UNIT DCP: HOME WHEN STABLE
--- NOTE | 2019-07-30 12:42 | Diagnostic Imaging Report ---
Indication: Chest pain Comparison: 11/19/2018 A single view chest radiograph was obtained. Findings: No definite infiltrate or pulmonary vascular congestion identified without overt CHF. The heart is enlarged. The aorta is mildly enlarged consistent with atherosclerotic vascular disease. The bones are osteopenic. Sternotomy noted. Pacemaker noted again on the left. Impression: No acute disease
--- NOTE | 2019-07-30 14:09 | NUR ---
NURSE NOTES: Stool sample collected and sent to lab.
--- NOTE | 2019-07-30 15:00 | NUR ---
NURSE NOTES: Patient seen by Winston BRINK, necrotic area noted to skin behind left heel, cleansed with betadine and covered with optifoam by KEENA. Per patient's , wound was present prior to admission and patient was being seen by a nurse at home for wound care.
[2019-07-30 16:00] VITALS: BP 107/68
--- NOTE | 2019-07-30 16:56 | NUR ---
NURSE NOTES: Received call and new orders from Dr. Encinas, is aware of patient's recurrent episodes of diarrhea (patient has had 3 episodes of diarrhea today), MD aware stool for c-diff sent. MD gave order for MRI, however, MD unaware patient has a pacemaker. Called Dr. Encinas and informed MD via voicemail patient has a pacemaker and according to radiology department will be unable to have an MRI, awaiting callback.
[2019-07-30] MEDS ORDERED: Warfarin Sodium 5mg ORAL ONE (17:00)
--- NOTE | 2019-07-30 19:17 | NUR ---
HAND-OFF: Report given to Liana AUSTIN. No callback received from Dr. Encinas, endorsed to becky AUSTIN.
[2019-07-30 20:00] VITALS: BP 123/73
--- NOTE | 2019-07-30 21:30 | History and Physical Report ---
DATE OF ADMISSION: 07/29/2019 HISTORY OF PRESENT ILLNESS: This is a 68-year-old male with history of chronic atrial fibrillation, who came to the hospital after having had epistaxis. This was seen initially at [facility]. He stopped bleeding and was discharged. He also reported to be having difficulty with ambulation. He is having ataxia. He has not had any falls, but he has nitish stumbling despite using a walker. His caregiver, Milan, reports that she is afraid he will fall and because of and Coumadin, he is at substantial risk of having a major problem. He was admitted for workup of his ataxia. PAST MEDICAL HISTORY: Notable for previous CABG, chronic atrial fibrillation, permanent pacemaker, Coumadin usage, diabetes mellitus, gout, hypertension, SAMIRA with CPAP. PAST SURGICAL HISTORY: Carotid endarterectomy. HOME MEDICATIONS: Glucophage, glimepiride, Coumadin, aspirin, allopurinol, Lasix, metoprolol, NSAIDs and Lipitor. REVIEW OF SYSTEMS: Denies any headaches, hematemesis, melena, or hematochezia. He admits having epistaxis. PHYSICAL EXAMINATION: GENERAL: Reveals an obese male. HEENT: Unremarkable. CHEST: Decreased breath sounds bilaterally with normal heart sounds. ABDOMEN: Soft. EXTREMITIES: There is 1+ edema. LABORATORY DATA: Lab testing at this time is unremarkable with normal CBC and BMP. Glucose 130. BNP 1836. INR 1.2. Urinalysis is negative. IMPRESSION: 1. Ataxia. 2. Failure to thrive. 3. Chronic atrial fibrillation. 4. CHF. 5. Epistaxis. 6. CAD. 7. CEA. 8. Obesity. 9. SAMIRA. DISCUSSION: Admit to the hospital. We will consult Cardiology. Currently, he does not need ENT evaluation. In the past, he has been a candidate for a Watchman device. I will consult Cardiology. We will obtain MRI brain. We will follow carefully. Neri Encinas M.D. DR: Janell JOB#: [id number] CC:
[2019-07-30] MEDS: Atorvastatin 20mg tab ORAL SCH (22:02)
--- NOTE | 2019-07-30 22:45 | NUR ---
NURSES NOTE: Met pt in bed, A/OX3, denies pain at this time. No outward s/s of distress noted. Breathing pattern is even and unlabored on RA. Patient is reinforced to use call light when needing assistance to use bedside commode. Patient is now using urinal which he declined to use last night. No call bk from Dr. Doan in regards to MRI. Will place f/u call in AM so can be made aware. Dressing changed to lower back. VS wnl. Bed at lowest level, call light within reach. Pt will continue to be monitored.
[2019-07-31 04:00] VITALS: BP 148/96
[2019-07-31 06:27] LABS: INR 1.2 (0.9-1.1)
[2019-07-31] MEDS: metFORMIN 500mg tab ORAL SCH ×2 (06:38→16:40)
[2019-07-31] MEDS: NovoLOG Insulin Flexpen SUBQ SCH ×4 (07:06→21:00)
--- NOTE | 2019-07-31 07:54 | NUR ---
HAND OFF: Report given to Yanet AUSTIN. Patient in stable condition.
[2019-07-31 08:00] VITALS: BP 113/72
--- NOTE | 2019-07-31 08:00 | NUR ---
NURSE NOTES: Received report from Caitlin AUSTIN, pt a/a/o x4 laying in bed with no signs of distress or other issues at this time. pt is able to ambulate around the room with steady gait and the use of a FWW. IV on the right AC gauge#20 heplock. call light within reach, bed in lowest position, side rales up x2. I will f/u as needed.
[2019-07-31] MEDS: Allopurinol 100mg Tab ORAL SCH (08:46)
[2019-07-31] MEDS: Metoprolol Succinate XL 100mg tab ORAL SCH (08:46)
[2019-07-31] MEDS: Lisinopril 10mg tab ORAL SCH (08:48)
[2019-07-31] MEDS: Furosemide 40mg tab ORAL SCH (08:48)
[2019-07-31] MEDS: Repaglinide 1mg tab ORAL SCH ×4 (08:49→18:00)
--- NOTE | 2019-07-31 11:50 | Pulmonology Progress Note ---
Assessment/Plan Assessment/Plan IMPRESSION: 1. Ataxia. 2. Failure to thrive. 3. Chronic atrial fibrillation. 4. CHF. 5. Epistaxis. 6. CAD. 7. CEA. 8. Obesity. 9. SAMIRA. 10. Diarrhea DISCUSSION: Await Cardiology consult. Currently, he does not need ENT evaluation. In the past, he has been a candidate for a Watchman device. I will follow carefully. Will request GI eval for diarrhea Contin ue PT/OT Neri Encinas M.D. Subjective Interval Events: Feeling better; still having diarrhea Constitutional: Reports: no symptoms HEENT: Repors: no symptoms Respiratory: Reports: no symptoms Cardiovascular: Reports: no symptoms Gastrointestinal/Abdominal: Reports: diarrhea Genitourinary: Reports: no symptoms Neurologic: Reports: no symptoms Allergies: Coded Allergies: BACITRACIN (Verified Allergy, Unknown, 11/16/18) NEOMYCIN (Verified Allergy, Unknown, 11/16/18) POLYMYXIN B (Verified Allergy, Unknown, 11/16/18) SULFA (SULFONAMIDE ANTIBIOTICS) (Verified Allergy, Unknown, 11/16/18) Objective Last 24 Hour Vital Signs Date Time Temp Pulse Resp B/P (MAP) Pulse Ox O2 Delivery O2 Flow Rate FiO2 07/31/19 08:48 113/72 07/31/19 08:46 90 113/72 07/31/19 08:00 98.3 90 21 113/72 (86) 98 07/31/19 04:00 98.6 83 18 148/96 (113) 98 07/30/19 21:00 Room Air 07/30/19 20:00 98.4 77 20 123/73 (90) 92 07/30/19 16:00 98.2 67 20 107/68 (81) 94 07/30/19 12:00 99.0 86 20 137/79 (98) 98 Intake and Output 07/30/19 07/31/19 19:00 07:00 Intake Total 900 ml 840 ml Balance 900 ml 840 ml Intake Oral 900 ml 840 ml # Voids 6 3 # Bowel Movements 4 General Appearance: no acute distress HEENT: normocephalic Respiratory/Chest: chest wall non-tender, normal breath sounds Cardiovascular: normal peripheral pulses, normal rate Abdomen: normal bowel sounds Microbiology Date/Time Source Procedure Growth Status 07/30/19 13:55 Stool Clostridium difficile Toxin Assay - Final Complete Laboratory Tests 07/31/19 05:20: Prothrombin Time 12.4H, Prothromb Time International Ratio 1.2H Current Medications Medications (Trade) Dose Ordered Sig/Riccardo Route PRN Reason Start Time Stop Time Status Last Admin Dose Admin Allopurinol (Zyloprim) 100 mg DAILY ORAL 07/30/19 09:00 08/29/19 08:59 07/31/19 08:46 Atorvastatin Calcium (Lipitor) 40 mg BEDTIME ORAL 07/30/19 21:00 08/29/19 20:59 07/30/19 22:02 Dextrose (Dextrose 50%) 25 ml Q30M PRN IV Hypoglycemia 07/30/19 02:00 08/29/19 01:59 Dextrose (Dextrose 50%) 50 ml Q30M PRN IV Hypoglycemia 07/30/19 02:00 08/29/19 01:59 Furosemide (Lasix) 80 mg DAILY ORAL 07/30/19 09:00 08/29/19 08:59 07/31/19 08:48 Insulin Aspart (NovoLOG) BEFORE MEALS AND HS SUBQ 07/30/19 06:30 08/29/19 06:29 07/31/19 07:06 Lisinopril (ZestriL) 10 mg DAILY ORAL 07/30/19 09:00 08/29/19 08:59 07/31/19 08:48 Loperamide HCl (Imodium) 2 mg Q6H PRN ORAL Diarrhea 07/30/19 16:45 08/29/19 16:44 Metformin HCl (Glucophage) 1,000 mg BIAC ORAL 07/30/19 06:30 08/29/19 06:29 07/31/19 06:38 Metoprolol Succinate (Toprol XL) 100 mg DAILY ORAL 07/30/19 09:00 08/29/19 08:59 07/31/19 08:46 Potassium Chloride (K-Dur) 20 meq DAILY ORAL 07/30/19 09:00 08/29/19 08:59 07/31/19 08:46 Repaglinide (Prandin) 2 mg TID ORAL 07/30/19 09:00 08/29/19 08:59 07/31/19 08:49 Warfarin Sodium (Coumadin per pharmacy) 1 ea DAILY PRN MISC Per rx protocol 07/30/19 02:15 08/29/19 02:14 Warfarin Sodium (Coumadin) 7.5 mg COUMADIN ONCE ORAL 07/31/19 17:00 07/31/19 17:01 Neri Encinas MD Jul 31, 2019 11:50
[2019-07-31 12:00] VITALS: BP 124/78
--- NOTE | 2019-07-31 15:55 | Consultation ---
Consult Note Assessment/Plan Cardiology Full consult dictated #[id number] Erendira Viera MD Jul 31, 2019 15:55
[2019-07-31 16:00] VITALS: BP 119/83
[2019-07-31] MEDS ORDERED: Warfarin Sodium 7.5mg ORAL ONE (17:00)
--- NOTE | 2019-07-31 19:00 | NUR ---
NURSE NOTES: Received report from Melony Holt, pt laying in bed, no s/s of respiratory distress. A/o x4, breaths regular and unlabored, denies any pain. Pt has Rt Ac 20G heplock . Bed in low locked position and call light with in reach
--- NOTE | 2019-07-31 19:17 | NUR ---
HAND-OFF: Report given to Sung RN, pt in stable condition. - incoming nurse is aware that OB needs to be collected. - ICD interrogation has been called, per rep. he will stop by tomorrow morning. - During my shift pt was able to ambulate around his room with staff assistance and the use of the FWW.
[2019-07-31 20:00] VITALS: BP 119/76
[2019-07-31] MEDS: Atorvastatin 20mg tab ORAL SCH (22:06)
--- NOTE | 2019-07-31 23:00 | NUR ---
NURSE NOTES: Pt ambulated around the unit, with the FWW x2. well tolerated, pt monitored during walk with stable gait, nos/s distress during walk
[2019-08-01] VITALS: BP 122/80
--- NOTE | 2019-08-01 00:15 | Consultation ---
DATE OF CONSULTATION: 07/31/2019 CARDIOLOGY CONSULTATION Coverage for Dr. Landrum. REASON FOR CONSULTATION: Coronary artery disease and atrial fibrillation, history of AICD placement. HISTORY OF PRESENT ILLNESS: The patient is a 68-year-old white male with a history of coronary artery disease, status post 3-vessel coronary artery bypass graft surgery (left internal mammary to left anterior descending, saphenous vein graft to posterior descending and circumflex) and left atrial appendage ligation in 2010 ([facility], Dr. Estes), permanent atrial fibrillation, ventricular tachycardia, status post dual-chamber ICD (Biotronik Eluna implanted on 08/07/2016, MRI compatible) and history of obstructive sleep apnea, type 2 diabetes, and hypertension. He was admitted with progressively worsening ataxia as well as epistaxis. He has been treated at [facility] for epistaxis, but symptoms persisted, records not currently available. He is a fair historian. He denies chest pain, dyspnea, palpitations, dizziness, lightheadedness, syncope, or ICD shocks. MEDICATIONS: Warfarin, atorvastatin, allopurinol, Lasix, lisinopril, metoprolol, potassium, Prandin insulin, metformin. ALLERGIES: Sulfonamide antibiotics, neomycin, and bacitracin. PAST MEDICAL HISTORY: As noted above. Also history of right carotid endarterectomy. 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 He has no history of tobacco or drug use. Previous history of chronic heavy alcohol use. None recently. REVIEW OF SYSTEMS: Positive for recent diarrhea with no blood per rectum, melena, and no nausea, vomiting, or abdominal pain. PHYSICAL EXAMINATION: VITAL SIGNS: Blood pressure is 113/72, pulse 90 and regular, respirations 21, and afebrile. GENERAL: Alert, obese white male, in no acute distress. HEENT: Normocephalic and atraumatic. Pupils are equal, round, and reactive to light. Sclerae are anicteric. Oral mucosa are moist NECK: Supple. There is no jugular venous distention. There is a healed right carotid endarterectomy scar. Carotid pulses are 2+ bilaterally with no bruits. LUNGS: Clear to auscultation bilaterally. HEART: Regular S1, S2. No murmurs or S3. Distant heart sounds. ABDOMEN: Soft, nontender, nondistended. Normoactive bowel sounds. Obese. EXTREMITIES: Trace pedal edema bilaterally. SKIN: No rashes or lesions. NEUROLOGIC: No gross focal motor deficits. Decreased light touch sensation of both distal lower extremities, feet to calf bilaterally. LABORATORY AND DIAGNOSTIC DATA: Hemoglobin 14, white blood count 6500, platelets 97,000. Potassium 4.5, BUN 32, creatinine 1.1, glucose 130. ProBNP 1836. TSH 1.6. INR 1.2. EKG shows atrial fibrillation with an average ventricular rate of 80 beats per minute. There appear to be fusion beats with ventricular pacing, fusion versus pseudofusion. Chest x-ray shows a dual-chamber ICD with leads in the right ventricle and right atrium, cardiomegaly, no infiltrates or pulmonary vascular congestion. Head CT showed chronic small vessel disease, possible small lacunar infarcts in the thalamus and basal ganglia bilaterally, no acute hemorrhage or mass effect. ASSESSMENT AND RECOMMENDATIONS: The patient is a 68-year-old man with multiple chronic medical problems as outlined above, who was admitted with ataxia, progressively worsening, epistaxis, and diarrhea. He has small-vessel disease and possible lacunar infarct on head CT. Suspect his ataxia may be due to previous CVA versus neuropathy related to his diabetes. His ICD is MRI compatible. We would hold anticoagulation for now, given epistaxis and further ENT evaluation. We would also favor Neurology evaluation to assess question of recent CVAs. He has had a left atrial appendage ligation per the cardiothoracic surgical notes and therefore may not be a candidate for the Watchman device. I will obtain further records and we will arrange for ICD interrogation. An echo will be obtained to evaluate left ventricular function and help guide further medical therapy. Dr. Landrum will continue to follow the patient when he returns on 08/02/2019. Thank you for allowing us to participate in his care. Erendira Viera M.D. DR: Luis Manuel JOB#: [id number] CC:
[2019-08-01 04:00] VITALS: BP 133/81
[2019-08-01] MEDS: metFORMIN 500mg tab ORAL SCH ×2 (06:15→16:30)
[2019-08-01] MEDS: NovoLOG Insulin Flexpen SUBQ SCH ×4 (06:16→21:21)
[2019-08-01 06:26] LABS: INR 1.1 (0.9-1.1)
--- NOTE | 2019-08-01 07:21 | NUR ---
HAND-OFF: Report given to Melony Holt.
--- NOTE | 2019-08-01 07:45 | NUR ---
NURSE NOTES: Received report from Josy AUSTIN, pt a/a/o x4 seating in bed eating breakfast with no signs of distress or other issues at this time. IV on the right AC gauge#20 heplock. pt has Optifoam in the sacral area to prevent ulcers. Also venous ulcer in the left heel, covered with Optifoam. pt has redness in perineal area.call light within reach, bed in lowest position, side rales up x2. I will f/u as needed.
[2019-08-01 08:00] VITALS: BP 151/87
[2019-08-01] MEDS: Repaglinide 1mg tab ORAL SCH ×3 (08:40→17:07)
[2019-08-01] MEDS: Metoprolol Succinate XL 100mg tab ORAL SCH (08:40)
[2019-08-01] MEDS: Furosemide 40mg tab ORAL SCH (08:40)
[2019-08-01] MEDS: Lisinopril 10mg tab ORAL SCH (08:40)
[2019-08-01] MEDS: Allopurinol 100mg Tab ORAL SCH (08:40)
--- NOTE | 2019-08-01 11:15 | General Progress Note ---
Assessment/Plan Assessment/Plan: Assessment - resolved diarrhea, C Diff (-) - CAD/CABG - DM - HTN Recmmendations - po as tlerated - follow symptoms Subjective Allergies: Coded Allergies: BACITRACIN (Verified Allergy, Unknown, 11/16/18) NEOMYCIN (Verified Allergy, Unknown, 11/16/18) POLYMYXIN B (Verified Allergy, Unknown, 11/16/18) SULFA (SULFONAMIDE ANTIBIOTICS) (Verified Allergy, Unknown, 11/16/18) Subjective Feels better no further diarrhea tolerating PO Objective Last 24 Hour Vital Signs Date Time Temp Pulse Resp B/P (MAP) Pulse Ox O2 Delivery O2 Flow Rate FiO2 08/01/19 09:00 Room Air 08/01/19 08:40 98 151/87 08/01/19 08:40 151/87 08/01/19 08:00 98.6 98 19 151/87 (108) 95 08/01/19 04:00 97.8 98 17 133/81 (98) 95 08/01/19 00:00 98.1 98 18 122/80 (94) 99 07/31/19 21:00 Room Air 07/31/19 20:00 99.2 78 17 119/76 (90) 97 07/31/19 16:00 97.7 95 18 119/83 (95) 98 07/31/19 12:00 98.5 88 20 124/78 (93) 95 Intake and Output 07/31/19 08/01/19 19:00 07:00 Intake Total 1200 ml 454 ml Output Total 300 ml Balance 900 ml 454 ml Intake Oral 1200 ml 454 ml Output Urine Total 300 ml # Voids 1 3 Laboratory Tests 08/01/19 04:50: Prothrombin Time 12.1H, Prothromb Time International Ratio 1.1 Height (Feet): 6 Height (Inches): 5.00 Weight (Pounds): 260 Objective Obese WM NCAT supple CTA RRR abd soft obese no edema Maia Chen MD Aug 01, 2019 11:15
[2019-08-01 12:00] VITALS: BP 125/74
--- NOTE | 2019-08-01 13:08 | Pulmonology Progress Note ---
Assessment/Plan Assessment/Plan IMPRESSION: 1. Ataxia. 2. Failure to thrive. 3. Chronic atrial fibrillation. 4. CHF. 5. Epistaxis. 6. CAD. 7. CEA. 8. Obesity. 9. SAMIRA. 10. Diarrhea DISCUSSION: Reviewed Cardiology consult. Currently, he does not need ENT evaluation. In the past, he has been a candidate for a Watchman device. Based on cardiology notes, he is nopt due to previous cardiac procedures. I will follow carefully. Pacemaker is MRI compatible as per cardiology Seen by GI Dc planning for home Will order MRI brain Neri Encinas M.D. Subjective Interval Events: Feeling better; diarrhea less; C diff negative Constitutional: Reports: no symptoms HEENT: Repors: no symptoms Respiratory: Reports: no symptoms Cardiovascular: Reports: no symptoms Allergies: Coded Allergies: BACITRACIN (Verified Allergy, Unknown, 11/16/18) NEOMYCIN (Verified Allergy, Unknown, 11/16/18) POLYMYXIN B (Verified Allergy, Unknown, 11/16/18) SULFA (SULFONAMIDE ANTIBIOTICS) (Verified Allergy, Unknown, 11/16/18) Objective Last 24 Hour Vital Signs Date Time Temp Pulse Resp B/P (MAP) Pulse Ox O2 Delivery O2 Flow Rate FiO2 08/01/19 12:00 98.4 98 21 125/74 (91) 98 08/01/19 09:00 Room Air 08/01/19 08:40 98 151/87 08/01/19 08:40 151/87 08/01/19 08:00 98.6 98 19 151/87 (108) 95 08/01/19 04:00 97.8 98 17 133/81 (98) 95 08/01/19 00:00 98.1 98 18 122/80 (94) 99 07/31/19 21:00 Room Air 07/31/19 20:00 99.2 78 17 119/76 (90) 97 07/31/19 16:00 97.7 95 18 119/83 (95) 98 Intake and Output 07/31/19 08/01/19 19:00 07:00 Intake Total 1200 ml 454 ml Output Total 300 ml Balance 900 ml 454 ml Intake Oral 1200 ml 454 ml Output Urine Total 300 ml # Voids 1 3 General Appearance: no acute distress HEENT: normocephalic Respiratory/Chest: chest wall non-tender, lungs clear Cardiovascular: normal peripheral pulses, normal rate Abdomen: normal bowel sounds Microbiology Date/Time Source Procedure Growth Status 07/30/19 13:55 Stool Clostridium difficile Toxin Assay - Final Complete Laboratory Tests 08/01/19 04:50: Prothrombin Time 12.1H, Prothromb Time International Ratio 1.1 Current Medications Medications (Trade) Dose Ordered Sig/Riccardo Route PRN Reason Start Time Stop Time Status Last Admin Dose Admin Allopurinol (Zyloprim) 100 mg DAILY ORAL 07/30/19 09:00 08/29/19 08:59 08/01/19 08:40 Atorvastatin Calcium (Lipitor) 40 mg BEDTIME ORAL 07/30/19 21:00 08/29/19 20:59 07/31/19 22:06 Dextrose (Dextrose 50%) 25 ml Q30M PRN IV Hypoglycemia 07/30/19 02:00 08/29/19 01:59 Dextrose (Dextrose 50%) 50 ml Q30M PRN IV Hypoglycemia 07/30/19 02:00 08/29/19 01:59 Furosemide (Lasix) 80 mg DAILY ORAL 07/30/19 09:00 08/29/19 08:59 08/01/19 08:40 Insulin Aspart (NovoLOG) BEFORE MEALS AND HS SUBQ 07/30/19 06:30 08/29/19 06:29 08/01/19 11:49 Lisinopril (ZestriL) 10 mg DAILY ORAL 07/30/19 09:00 08/29/19 08:59 08/01/19 08:40 Loperamide HCl (Imodium) 2 mg Q6H PRN ORAL Diarrhea 07/30/19 16:45 08/29/19 16:44 Metformin HCl (Glucophage) 1,000 mg BIAC ORAL 07/30/19 06:30 08/29/19 06:29 08/01/19 06:15 Metoprolol Succinate (Toprol XL) 100 mg DAILY ORAL 07/30/19 09:00 08/29/19 08:59 08/01/19 08:40 Potassium Chloride (K-Dur) 20 meq DAILY ORAL 07/30/19 09:00 08/29/19 08:59 08/01/19 08:40 Repaglinide (Prandin) 2 mg TID ORAL 07/30/19 09:00 08/29/19 08:59 08/01/19 11:50 Warfarin Sodium (Coumadin per pharmacy) 1 ea DAILY PRN MISC Per rx protocol 07/30/19 02:15 08/29/19 02:14 Warfarin Sodium (Coumadin) 10 mg COUMADIN ONCE ORAL 08/01/19 17:00 08/01/19 17:01 Neri Encinas MD Aug 01, 2019 13:07
[2019-08-01] MEDS ORDERED: Gadavist 7.5mMol/7.5ml vial IV PRN (13:15)
[2019-08-01 16:00] VITALS: BP 111/75
[2019-08-01] MEDS ORDERED: Warfarin Sodium 5mg ORAL ONE (17:00)
--- NOTE | 2019-08-01 19:20 | NUR ---
HAND-OFF: Report given to Katherine RN, pt in stable condition. Incoming nurse is aware that OB still needs to be collected.
--- NOTE | 2019-08-01 19:21 | NUR ---
NURSE NOTES: Received report & pt from NORMAN Holt. Pt lying in bed, a&ox4, in room air. No s/s of acute distress & no c/o pain at this time. IV site intact & S/L'd. OB, O&P & Marisa culture needed. Pt aware. Toilet hat provided. Pt hasn't had a BM yet but reminded pt to call nurse if able to pass BM. Pt verbalized understanding. Plan of care discussed.
--- NOTE | 2019-08-01 19:26 | Cardiology Progress Note ---
Assessment/Plan Problem List: (1) Ataxia (2) Permanent atrial fibrillation (3) AICD (automatic cardioverter/defibrillator) present (4) Epistaxis Status: stable, progressing Status Narrative Mr Lance's icd was checked today - it is a biventricular device, MRI compatible ( [id number]) implanted 11/25/2017 and last checked 06/04/19 pacing thresholds were not tested, but sensing is 14 mv in rv, 5 mv in LV. Impedances are nl, including HV of 59 ohm. Outputs are set to 2.5v /0.4 ms in RV, 7.5/ 1.5 ms in LV - suggesting possible LV lead malfunction. Narrow qrs on ekg - ? pseudofusion or fusion He has had one VT episode on 07/31 at 6 37 am - cl 275 ms - appropriate detection and termination w/ ATP from device He is in permanent AF He does not appear w / ACS or CHF Assessment/Plan ECHO pending to assess LV function Check MG. Continue metoprolol, lisinopril, lasix - home meds Warfarin a-c - INR not therapeutic. ? if NOAC would be easier for pt compliance Neuro evaluation , head MRI ? CVAs causing ataxia. Subjective ROS Limited/Unobtainable: No Subjective Cardiology for Dr. Landrum Pt c/o loss of balance. Denies lightheadedness/ dizziness, palpitations. No chest pain or dyspnea Objective Last 24 Hour Vital Signs Date Time Temp Pulse Resp B/P (MAP) Pulse Ox O2 Delivery O2 Flow Rate FiO2 08/01/19 16:00 98.4 98 18 111/75 (87) 98 08/01/19 12:00 98.4 98 21 125/74 (91) 98 08/01/19 09:00 Room Air 08/01/19 08:40 98 151/87 08/01/19 08:40 151/87 08/01/19 08:00 98.6 98 19 151/87 (108) 95 08/01/19 04:00 97.8 98 17 133/81 (98) 95 08/01/19 00:00 98.1 98 18 122/80 (94) 99 07/31/19 21:00 Room Air 07/31/19 20:00 99.2 78 17 119/76 (90) 97 General Appearance: WD/WN, no apparent distress, alert EENT: PERRL/EOMI Neck: supple, no JVD Rhythm: Afib, other - vpaced Cardiovascular: normal rate, regular rhythm, no gallop/murmur Respiratory/Chest: no respiratory distress, no accessory muscle use, other - few basilar rhonchi bilat Abdomen: non tender, soft Extremities: no swelling Intake and Output 07/31/19 08/01/19 19:00 07:00 Intake Total 1200 ml 454 ml Output Total 300 ml Balance 900 ml 454 ml Intake Oral 1200 ml 454 ml Output Urine Total 300 ml # Voids 1 3 Laboratory Tests Test 08/01/19 04:50 Prothrombin Time 12.1 SEC (9.30-11.50) H Prothromb Time International Ratio 1.1 (0.9-1.1) Microbiology Date/Time Source Procedure Growth Status 07/30/19 13:55 Stool Clostridium difficile Toxin Assay - Final Complete Erendira Viera MD Aug 01, 2019 19:26
[2019-08-01 20:00] VITALS: BP 126/69
[2019-08-01] MEDS: Atorvastatin 20mg tab ORAL SCH (21:15)
--- NOTE | 2019-08-01 21:34 | NUR ---
NURSE NOTES: Pt requesting for Melatonin for sleep. Per pt, he takes 2 tabs every night at home. Called Dr. Encinas for an order. gave Melatonin 6mg PO QHS for sleep. Orders noted & carried out. Addendum: 08/01/19 at 2208 by Katherine Beauchamp RN Order was cancelled by pharmacist. Per pharmacist Eerndira, "I dc'd it because we don't use melatonin (nutraceutical) here per protocol" Will make pt aware.
--- NOTE | 2019-08-02 01:45 | NUR ---
NURSE NOTES: Stool specimen collected for O&P, OB stool, & stool culture. Sent down to lab.
[2019-08-02 04:00] VITALS: BP 146/83
[2019-08-02 05:35] LABS: INR 1.4 (0.9-1.1)
[2019-08-02] MEDS: NovoLOG Insulin Flexpen SUBQ SCH ×4 (06:30→21:00)
[2019-08-02] MEDS: metFORMIN 500mg tab ORAL SCH ×2 (06:49→17:08)
--- NOTE | 2019-08-02 07:34 | NUR ---
HAND-OFF: Report given to NORMAN Tena. Rounds done.
[2019-08-02 08:00] VITALS: BP 157/82
--- NOTE | 2019-08-02 08:07 | NUR ---
NURSE NOTES: Received am reports, and made rounds; patient is in the bed alert and awake. respiration is even and unlabored on room air. patient is able to exchange greeting with the nurse. no nosebleed noted. left upper chest wall pacemaker in-place, denies any chest pain and dizziness at this time. IV site 20 g saline-lock in-place on right arm; no warmth, tender and bleeding noted. place call Light within reach. encouraged patient to call for assist at any time; patient states "I will but I do most things myself," educated patient the risk of fall and importance of asking for help when getting out of bed, patient said ok.
--- NOTE | 2019-08-02 08:29 | NUR ---
CASE MANAGEMENT: REVIEW 08/02/19 SI:ATAXIA . EPISTAXIS . CONFUSION . AMS . FAILURE TO THRIVE . PERMANENT A-FIB WITH AICD 98.7 98 18 146/83 94% ON RA MG 1.6 PT/INR 14.5/1.4 IS:LASIX PO QD TOPROL PO QD LIPITOR PO QHS LISINOPRIL PO QD K-DUR PO QD METFORMIN HCL PO BIAC PRANDIN PO TID \: 3E MED SURG UNIT DCP: HOME WHEN STABLE PLAN: PT/INR STILL HIGH STOOL OB -PENDING O&P-PENDING ICD PACEMAKER CHECK COMPETE MRI BRAIN - THIS AM 2D ECHO - PENDING
[2019-08-02] MEDS: Lisinopril 10mg tab ORAL SCH (09:10)
[2019-08-02] MEDS: Furosemide 40mg tab ORAL SCH (09:10)
[2019-08-02] MEDS: Repaglinide 1mg tab ORAL SCH ×3 (09:11→18:10)
[2019-08-02] MEDS: Metoprolol Succinate XL 100mg tab ORAL SCH (09:11)
[2019-08-02] MEDS: Allopurinol 100mg Tab ORAL SCH (09:11)
--- NOTE | 2019-08-02 10:44 | Pulmonology Progress Note ---
Assessment/Plan Assessment/Plan IMPRESSION: 1. Ataxia. 2. Failure to thrive. 3. Chronic atrial fibrillation. 4. CHF. 5. Epistaxis. 6. CAD. 7. CEA. 8. Obesity. 9. SAMIRA. 10. Diarrhea DISCUSSION: Reviewed Cardiology consult. Currently, he does not need ENT evaluation. In the past, he has been a candidate for a Watchman device. Based on cardiology notes, he is not due to previous cardiac procedures. I will follow carefully. Pacemaker is MRI compatible as per cardiology Seen by GI Dc planning for home Await MRI brain Neri Encinas M.D. Subjective Interval Events: None new; diarrhea better Constitutional: Reports: no symptoms HEENT: Repors: no symptoms Respiratory: Reports: no symptoms Cardiovascular: Reports: no symptoms Gastrointestinal/Abdominal: Reports: no symptoms Allergies: Coded Allergies: BACITRACIN (Verified Allergy, Unknown, 11/16/18) NEOMYCIN (Verified Allergy, Unknown, 11/16/18) POLYMYXIN B (Verified Allergy, Unknown, 11/16/18) SULFA (SULFONAMIDE ANTIBIOTICS) (Verified Allergy, Unknown, 11/16/18) Objective Last 24 Hour Vital Signs Date Time Temp Pulse Resp B/P (MAP) Pulse Ox O2 Delivery O2 Flow Rate FiO2 08/02/19 09:11 90 157/82 08/02/19 09:10 157/82 08/02/19 08:00 97.2 90 20 157/82 (107) 96 08/02/19 04:00 98.7 98 18 146/83 (104) 94 08/01/19 21:00 Room Air 08/01/19 20:00 98.1 75 18 126/69 (88) 99 08/01/19 16:00 98.4 98 18 111/75 (87) 98 08/01/19 12:00 98.4 98 21 125/74 (91) 98 Intake and Output 08/01/19 08/02/19 19:00 07:00 Intake Total 720 ml 480 ml Balance 720 ml 480 ml Intake Oral 720 ml 480 ml # Voids 3 # Bowel Movements 1 General Appearance: no acute distress HEENT: normocephalic Respiratory/Chest: chest wall non-tender, lungs clear Cardiovascular: normal peripheral pulses, normal rate Abdomen: normal bowel sounds Microbiology Date/Time Source Procedure Growth Status 07/30/19 13:55 Stool Clostridium difficile Toxin Assay - Final Complete Laboratory Tests 08/02/19 01:45: Stool Occult Blood [Pending] 08/02/19 04:50: Prothrombin Time 14.5H, Prothromb Time International Ratio 1.4H, Magnesium Level 1.6L Current Medications Medications (Trade) Dose Ordered Sig/Riccardo Route PRN Reason Start Time Stop Time Status Last Admin Dose Admin Allopurinol (Zyloprim) 100 mg DAILY ORAL 07/30/19 09:00 08/29/19 08:59 08/02/19 09:11 Atorvastatin Calcium (Lipitor) 40 mg BEDTIME ORAL 07/30/19 21:00 08/29/19 20:59 08/01/19 21:15 Dextrose (Dextrose 50%) 25 ml Q30M PRN IV Hypoglycemia 07/30/19 02:00 08/29/19 01:59 Dextrose (Dextrose 50%) 50 ml Q30M PRN IV Hypoglycemia 07/30/19 02:00 08/29/19 01:59 Furosemide (Lasix) 80 mg DAILY ORAL 07/30/19 09:00 08/29/19 08:59 08/02/19 09:10 Gadobutrol (Gadavist) 7.5 mmol NOW PRN IV Radiology Procedure 08/01/19 13:15 08/05/19 13:08 Insulin Aspart (NovoLOG) BEFORE MEALS AND HS SUBQ 07/30/19 06:30 08/29/19 06:29 08/01/19 21:21 Lisinopril (ZestriL) 10 mg DAILY ORAL 07/30/19 09:00 08/29/19 08:59 08/02/19 09:10 Loperamide HCl (Imodium) 2 mg Q6H PRN ORAL Diarrhea 07/30/19 16:45 08/29/19 16:44 Metformin HCl (Glucophage) 1,000 mg BIAC ORAL 07/30/19 06:30 08/29/19 06:29 08/02/19 06:49 Metoprolol Succinate (Toprol XL) 100 mg DAILY ORAL 07/30/19 09:00 08/29/19 08:59 08/02/19 09:11 Potassium Chloride (K-Dur) 20 meq DAILY ORAL 07/30/19 09:00 08/29/19 08:59 08/02/19 09:11 Repaglinide (Prandin) 2 mg TID ORAL 07/30/19 09:00 08/29/19 08:59 08/02/19 09:11 Warfarin Sodium (Coumadin per pharmacy) 1 ea DAILY PRN MISC Per rx protocol 07/30/19 02:15 08/29/19 02:14 Neri Encinas MD Aug 02, 2019 10:44
--- NOTE | 2019-08-02 11:00 | NUR ---
NURSE NOTES: Patient taken down for MRI.
--- NOTE | 2019-08-02 11:29 | NUR ---
NURSE NOTES: Patient returned from MRI, per technical engineer patient was unable to complete MRI due to claustrophobia, patient is refusing to go back for MRI.
--- NOTE | 2019-08-02 11:32 | NUR ---
08/02 pt UNABLE TO TOLERATE EXAM. pt BECAME CLAUSTRO RIGHT WHEN HE WAS PUT INTO SCANNER. pt IS 6'6" 260 LBS. pt BEGAN TO REFUSE EXAM. pt PREFERS OPEN MRI. HAS DONE OPEN MRI AT [facility]. pt REFUSED TO CONTINUE WITH EXAM. NO SERIES WERE OBTAINED. - CS
--- NOTE | 2019-08-02 11:45 | NUR ---
Paged Dr. Encinas regarding patient refusing MRI, awaiting call back
[2019-08-02 12:00] VITALS: BP 136/81
[2019-08-02 16:00] VITALS: BP 123/73
[2019-08-02] MEDS ORDERED: Warfarin Sodium 5mg ORAL ONE (17:00)
--- NOTE | 2019-08-02 17:08 | NUR ---
NURSE NOTES: Called Dr. Encinas and informed MD via voicemail that stool OB is positive and inquired if MD would like to continue giving coumadin as ordered. Received callback from MD and per MD OK to give coumadin as ordered. MD also aware patient refused MRI.
--- NOTE | 2019-08-02 19:29 | NUR ---
HAND-OFF: Report given to Keena Johnson
--- NOTE | 2019-08-02 19:33 | NUR ---
NURSE NOTES: Received report from Melony Green, pt laying in bed, no s/s of respiratory distress. A/o x4, breaths regular and unlabored, denies any pain. Pt has Rt Ac 20G heplock, denies any pain, pt refused MRI on 08/02 Md aware . Bed in low locked position and call light with in reach
[2019-08-02 19:59] VITALS: BP 117/71
--- NOTE | 2019-08-02 20:31 | Consultation ---
DATE OF CONSULTATION: 07/31/2019 GASTROENTEROLOGY CONSULTATION CONSULTING PHYSICIAN: Maia Chen M.D. CHIEF COMPLAINT: I was asked to see this patient by Dr. Neri Encinas for evaluation of diarrhea. HISTORY OF PRESENT ILLNESS: The patient is a 68-year-old white man who comes into the hospital and he is complaining of diarrhea for about two weeks. He states that he normally goes to bathroom regularly, but about 2 weeks ago, he noticed to have really loose stools. In addition, he mistakenly took several days worth of his 's laxative, which is a combination of MiraLAX dissolved in some type of electrolyte solution. He says his diarrhea was then worse. However, he has been off of the laxatives a few days which caused diarrhea. He has no abdominal pain, nausea, or vomiting. He has not had a colonoscopy. He did have a three-day course of azithromycin recently. PAST MEDICAL HISTORY: History of coronary artery bypass graft procedure, history of defibrillator placement, hypertension, diabetes, history of recent epistaxis, and high blood pressure. FAMILY HISTORY: Positive for gynecological malignancy in the mother. PAST SURGICAL HISTORY: Status post bilateral carotid endarterectomy. SOCIAL HISTORY: The patient does not smoke. He previously drank more frequently, but now drinks occasionally. REVIEW OF SYSTEMS: Otherwise negative. ALLERGIES: None noted. PHYSICAL EXAMINATION: GENERAL: A pleasant obese white man, seen in his room. HEENT: Normocephalic and atraumatic. Sclerae anicteric. Oropharynx is clear. NECK: Supple. CHEST: Clear to auscultation. CARDIOVASCULAR: Revealed a regular rate. ABDOMEN: Soft, obese, and nontender. EXTREMITIES: Revealed no edema. LABORATORY DATA: Noted. ASSESSMENT: This patient presents with diarrhea for about two weeks. The confounding factor is laxatives this week. He had several days worth of laxative use, which made his diarrhea worse. C Diff was negative, but I would check his other organisms including ova and parasites and cultures. In the meantime would see if his diarrhea will continue as an inpatient. I will ask RN to quantitate. The patient should have an eventual colonoscopy, and this can be done as an outpatient once the patient is improved. RECOMMENDATIONS: Per above discussion and per orders written in the chart. Thank you for asking me to participate in the care of this patient. Maia Chen M.D. DR: Matthew JOB#: [id number] CC: RAMANA
--- NOTE | 2019-08-02 20:43 | General Progress Note ---
Assessment/Plan Status: stable, progressing Assessment/Plan: Assessment - resolved diarrhea, C Diff (-) - CAD/CABG - DM - HTN Recmmendations - po as tlerated - follow symptoms - outpatient f/u Subjective Allergies: Coded Allergies: BACITRACIN (Verified Allergy, Unknown, 11/16/18) NEOMYCIN (Verified Allergy, Unknown, 11/16/18) POLYMYXIN B (Verified Allergy, Unknown, 11/16/18) SULFA (SULFONAMIDE ANTIBIOTICS) (Verified Allergy, Unknown, 11/16/18) Subjective Feels better no further diarrhea tolerating PO d/w PMD Objective Last 24 Hour Vital Signs Date Time Temp Pulse Resp B/P (MAP) Pulse Ox O2 Delivery O2 Flow Rate FiO2 08/02/19 19:59 99.0 85 16 117/71 (86) 97 08/02/19 16:00 97.9 81 20 123/73 (90) 97 08/02/19 12:00 98.1 68 18 136/81 (99) 96 08/02/19 09:11 90 157/82 08/02/19 09:10 157/82 08/02/19 09:00 Room Air 08/02/19 08:00 97.2 90 20 157/82 (107) 96 08/02/19 04:00 98.7 98 18 146/83 (104) 94 08/01/19 21:00 Room Air Intake and Output 08/01/19 08/02/19 19:00 07:00 Intake Total 720 ml 480 ml Balance 720 ml 480 ml Intake Oral 720 ml 480 ml # Voids 3 # Bowel Movements 1 Laboratory Tests 08/02/19 01:45: Stool Occult Blood Positive 08/02/19 04:50: Prothrombin Time 14.5H, Prothromb Time International Ratio 1.4H, Magnesium Level 1.6L Height (Feet): 6 Height (Inches): 5.00 Weight (Pounds): 260 Objective Obese WM NCAT supple CTA RRR abd soft obese no edema aMia Chen MD Aug 02, 2019 20:43
[2019-08-02] MEDS: Atorvastatin 20mg tab ORAL SCH (20:57)
[2019-08-03] VITALS: BP 119/72
[2019-08-03 04:00] VITALS: BP 118/77
[2019-08-03 05:24] LABS: INR 1.5 (0.9-1.1)
[2019-08-03] MEDS: metFORMIN 500mg tab ORAL SCH (05:52)
[2019-08-03] MEDS: NovoLOG Insulin Flexpen SUBQ SCH ×2 (05:54→11:27)
--- NOTE | 2019-08-03 07:27 | NUR ---
HAND-OFF: Report given to Aleksandra AUSTIN. Addendum: 08/03/19 at 5528 by Josy Johnson RN wrong pt, entered in error
--- NOTE | 2019-08-03 07:28 | NUR ---
HAND-OFF: Report given to Melony Green.
--- NOTE | 2019-08-03 07:48 | NUR ---
NURSE NOTES: patient is in the bed eating. HOB is in high becerra position. patient exchanged greetings with the nurse. respiration is even and unlabored on room air. Denies any pain and discomfort. no confusion and acute distress noted at this time. placed call light within reach, will continue to follow plan of care.
[2019-08-03 08:00] VITALS: BP 148/89
[2019-08-03] MEDS: Repaglinide 1mg tab ORAL SCH ×2 (08:20→13:09)
[2019-08-03] MEDS: Lisinopril 10mg tab ORAL SCH (08:20)
[2019-08-03] MEDS: Allopurinol 100mg Tab ORAL SCH (08:20)
[2019-08-03] MEDS: Metoprolol Succinate XL 100mg tab ORAL SCH (08:21)
[2019-08-03] MEDS: Furosemide 40mg tab ORAL SCH (08:21)
[2019-08-03 12:00] VITALS: BP 147/77
--- NOTE | 2019-08-03 14:03 | NUR ---
NURSE NOTES: patient discharged at 1325 without any signs of distress. patient provided with after-care instructions with medication teaching, patient verbalized understanding of after-care instructions. IV removed intact, wrist band removed. patient escorted to private vehicle via wheelchair with all patient's belongings.
[2019-08-03] MEDS ORDERED: Warfarin Sodium 4mg PO ONE (17:00)
--- NOTE | 2019-08-04 19:11 | Discharge Summary ---
Discharge Summary Discharge Summary _ DATE OF ADMISSION: 07/29/2019 DATE OF DISCHARGE: 08/03/2019 DISCHARGED BY: Dr. Encinas REASON FOR ADMISSION: 68 years old male with past medical history of coronary artery disease, status post CABG, chronic atrial fibrillation, permanent pacemaker, chronic anticoagulation, diabetes mellitus, hypertension, gout, obstructive sleep apnea , using CPAP, presented to the hospital after episode of epistaxis. Patient initially was seen at [facility]. Bleeding stopped , and he was discharged. Patient also reported difficulty with ambulation due to ataxia. Patient denied any falls , but was stumbling despite using a walker. Due to chronic Coumadin use and risk for fall , patient admitted for work-up of ataxia. CONSULTANTS: registered veterinary technician Dr. Viera GI specialist Dr. Chen [facility] COURSE: Patient admitted to the hospital. CT of the head revealed no acute intracranial bleeding, mass-effect or edema. Moderate atrophy of the brain noted along with evidence of chronic small vessel disease involving white matter tracts. CT of the head showed suggestion of small lacunar infarct in the thalamus and basal ganglia bilaterally. Statin continued. TSH within normal limits. ICD was checked and interrogated. Health Care Marketing Specialist stated that patient's ICD was MRI compatible. MRI of the brain was ordered ,but was cancelled, since patient declined the test. Chest x-ray revealed no acute cardiopulmonary pathology. Echocardiogram demonstrated mild basal anteroseptal wall hypokinesis with calculated ejection fraction 45 to 50%. Mild to moderate mitral regurgitation. Right ventricular systolic pressure of 40 consistent with moderate pulmonary hypertension. Guideline directed medical therapy continued with beta-jorge , ALEKSANDER inhibitor and Lasix. Patient was on Coumadin . Health Care Marketing Specialist recommended NOAC for easier patient's compliance. GI consulted for diarrhea. Stool for C. difficile was negative. Stool for ova and parasite was negative. Stool culture was negative. Imodium provided as needed. Diarrhea resolved. GI specialist recommended outpatient follow-up with GI. Blood sugar was managed with metformin, Prandin and sliding scale of insulin as needed. Electrolytes corrected as needed. Patient did not need any ENT evaluation. Per registered veterinary technician, ataxia was possibly due to previous CVA versus neuropathy related to his diabetes. Patient has had a left atrial appendage ligation per the cardiothoracic surgical notes, and therefore may not be a candidate for the Watchman device. Fall precaution maintained. Patient was working with a physical therapist. Supplemental oxygen was on board as needed to keep pulse oximetry above 92%. Pulse oximetry was stable on room air. BiPAP provided at night. Patient clinically stabilized and was ready for discharge back home with caregiver. FINAL DIAGNOSES: Ataxia Permanent/chronic atrial fibrillation AICD Possible small lacunar infarct Congestive heart failure Epistaxis Diarrhea resolved Coronary artery disease with history of CABG Diabetes mellitus Hypertension Obstructive sleep apnea Obesity DISCHARGE MEDICATIONS: See Medication Reconciliation list. DISCHARGE INSTRUCTIONS: Patient was discharged home. Follow-up with primary care provider in 1 week. I have been assigned to dictate discharge summary for this account. I was not involved in the patient's management. Anat Walker NP Aug 04, 2019 19:11
== END 2019-08-03 13:25 | disposition home or self-care (01) | DRG 92 ==
LOC: EMR 19:21 → 4E 19:34 → EDBEDREQ 20:46 → 3E 23:16
DX: R27.0 Ataxia, unspecified (principal); I48.20 Chronic atrial fibrillation, unspecified; R62.7 Adult failure to thrive; R04.0 Epistaxis; I50.9 Heart failure, unspecified; I25.10 Atherosclerotic heart disease of native coronary artery without angina pectoris; Z95.1 Presence of aortocoronary bypass graft; Z79.01 Long term (current) use of anticoagulants; E11.9 Type 2 diabetes mellitus without complications; Z79.84 Long term (current) use of oral hypoglycemic drugs; M10.9 Gout, unspecified; G47.33 Obstructive sleep apnea (adult) (pediatric); I11.0 Hypertensive heart disease with heart failure; Z95.810 Presence of automatic (implantable) cardiac defibrillator; E66.9 Obesity, unspecified; Z88.1 Allergy status to other antibiotic agents; Z88.2 Allergy status to sulfonamides; R19.7 Diarrhea, unspecified
CPT/HCPCS: 36415; 70450; 71045; 80053; 81003; 82270; 82962; 83690; 83735; 83880; 84100; 84439; 84443; 84481; 85007; 85025; 85610; 85730; 87045; 87324; 93005; 93306; 96360; 99285; J1815; J7030; J8499

== ENCOUNTER 2019-08-13 16:56 | Emergency (ER) | payer MEDICARE, BC ==
[~2019-08-13] VITALS: Ht 198.1 cm; Wt 117.9 kg
[2019-08-13] MEDS ORDERED: AMLODIPINE BESY10 MG ORAL (17:13)
[2019-08-13] MEDS ORDERED: ZYRTEC10 MG ORAL (17:13)
[2019-08-13] MEDS ORDERED: DONEPEZIL HCL5 M2 ORAL (17:13)
[2019-08-13 17:15] VITALS: BP 128/81
--- NOTE | 2019-08-13 17:20 | NUR ---
ED Nurse Note: Patient walked in to ER c/o abd pain, uncontroled diarrhea, nausea, and nose bleed. Patient stated [place] [facility] [place]. Was admited for the same reason-severe diarrhea. Patient presented anxious, AAO x 4, VSS at this time.
[2019-08-13] MEDS ORDERED: Omnipaque-300 100ml vial INJ PRN (17:30)
--- NOTE | 2019-08-13 17:35 | Emergency Room Report ---
History of Present Illness General Chief Complaint: Nosebleed Source: Patient Present Illness HPI 68-year-old male history of acute episodes of diarrhea history of atrial fibrillation history of epistaxis presents with alleged diarrhea x2 to 3 weeks, semi-formed to solid, patient reports liquid however photos on his significant other's phone shows solid stool he reports generalized abdominal pain no aggravating relieving factors severity is moderate, intermittent, no fevers no chills patient presents for evaluation Allergies: Coded Allergies: BACITRACIN (Verified Allergy, Unknown, 11/16/18) NEOMYCIN (Verified Allergy, Unknown, 11/16/18) POLYMYXIN B (Verified Allergy, Unknown, 11/16/18) SULFA (SULFONAMIDE ANTIBIOTICS) (Verified Allergy, Unknown, 11/16/18) Patient History Past Medical History: see triage record Reviewed Nursing Documentation: PMH: Agreed; PSxH: Agreed Nursing Documentation-PMH Hx Cardiac Problems: Yes Hx Hypertension: Yes Hx Pacemaker: Yes Hx Asthma: No Hx COPD: No Hx Diabetes: Yes Hx Cancer: No Hx Gastrointestinal Problems: No Hx Dialysis: No Hx Neurological Problems: No Hx Cerebrovascular Accident: No Hx Seizures: No Hx Neurologic Surgery: No Hx Brain Shunt: No Review of Systems All Other Systems: negative except mentioned in HPI Physical Exam Vital Signs Date Time Temp Pulse Resp B/P (MAP) Pulse Ox O2 Delivery O2 Flow Rate FiO2 08/13/19 17:02 97.3 94 19 128/81 (97) 96 Room Air Sp02 EP Interpretation: reviewed, normal General Appearance: well appearing, no apparent distress, alert Head: normocephalic, atraumatic Eyes: bilateral eye PERRL, bilateral eye EOMI ENT: uvula midline, moist mucus membranes Neck: supple, thyroid normal, supple/symm/no masses Respiratory: lungs clear, no respiratory distress, no retraction, no accessory muscle use Cardiovascular #1: normal peripheral pulses, regular rate, rhythm, no edema, no gallop, no murmur Gastrointestinal: non tender, soft, no guarding, no rebound Musculoskeletal: normal inspection Neurologic: alert, oriented x3 Psychiatric: mood/affect normal Skin: no rash, warm/dry Medical Decision Making Diagnostic Impression: Primary Impression: Acute diarrhea ER Course 68-year-old male presents with acute diarrhea, differential diagnosis includes infectious diarrhea functional diarrhea, colitis, diverticulitis Epistaxis resolved prior to coming to the hospital CT scan negative Labs unremarkable Abdomen soft nontender no rebound no guarding Patient given fluid hydration Spoke with Dr. Encinas he is aware will follow patient as an outpatient Patient already has a referral to outpatient GI Disposition home with return precautions follow-up with PCP Laboratory Tests Test 08/13/19 17:40 White Blood Count 11.2 K/UL (4.8-10.8) H Red Blood Count 5.50 M/UL (4.70-6.10) Hemoglobin 14.7 G/DL (14.2-18.0) Hematocrit 44.7 % (42.0-52.0) Mean Corpuscular Volume 81 FL (80-99) Mean Corpuscular Hemoglobin 26.7 PG (27.0-31.0) L Mean Corpuscular Hemoglobin Concent 32.8 G/DL (32.0-36.0) Red Cell Distribution Width 13.9 % (11.6-14.8) Platelet Count 224 K/UL (150-450) Mean Platelet Volume 9.4 FL (6.5-10.1) Neutrophils (%) (Auto) 74.9 % (45.0-75.0) Lymphocytes (%) (Auto) 14.1 % (20.0-45.0) L Monocytes (%) (Auto) 8.4 % (1.0-10.0) Eosinophils (%) (Auto) 1.2 % (0.0-3.0) Basophils (%) (Auto) 1.3 % (0.0-2.0) Prothrombin Time 16.3 SEC (9.30-11.50) H Prothrombin Time INR 1.6 (0.9-1.1) H Activated Partial Thromboplast Time 32 SEC (23-33) Urine Color Pale yellow Urine Appearance Clear Urine pH 5 (4.5-8.0) Urine Specific Susan 1.010 (1.005-1.035) Urine Protein Negative (NEGATIVE) Urine Glucose (UA) Negative (NEGATIVE) Urine Ketones Negative (NEGATIVE) Urine Blood 1+ (NEGATIVE) H Urine Nitrite Negative (NEGATIVE) Urine Bilirubin Negative (NEGATIVE) Urine Urobilinogen Normal MG/DL (0.0-1.0) Urine Leukocyte Esterase Negative (NEGATIVE) Urine RBC 2-4 /HPF (0 - 0) H Urine WBC 0-2 /HPF (0 - 0) Urine Squamous Epithelial Cells None /LPF (NONE/OCC) Urine Bacteria Few /HPF (NONE) Sodium Level 132 MMOL/L (136-145) L Potassium Level 4.0 MMOL/L (3.5-5.1) Chloride Level 93 MMOL/L (98-107) L Carbon Dioxide Level 26 MMOL/L (21-32) Anion Gap 13 mmol/L (5-15) Blood Urea Nitrogen 32 mg/dL (7-18) H Creatinine 1.1 MG/DL (0.55-1.30) Estimate Glomerular Filtration Rate > 60 mL/min (>60) Glucose Level 212 MG/DL (74-106) H Calcium Level 9.5 MG/DL (8.5-10.1) Total Bilirubin 0.4 MG/DL (0.2-1.0) Aspartate Amino Transferase (AST) 24 U/L (15-37) Alanine Aminotransferase (ALT) 28 U/L (12-78) Alkaline Phosphatase 95 U/L (46-116) Troponin I 0.014 ng/mL (0.000-0.056) Total Protein 7.8 G/DL (6.4-8.2) Albumin 3.7 G/DL (3.4-5.0) Globulin 4.1 g/dL Albumin/Globulin Ratio 0.9 (1.0-2.7) L Lipase 421 U/L (73-393) H EKG Diagnostic Results EKG Time: 18:10 EP Interpretation: V paced rhythm, rate 81, QTc 513, no acute ST elevations, right axis deviat Rhythm Strip Diag. Results Rhythm Strip Time: 19:14 EP Interpretation: yes Rate: 83 Rhythm: other - Paced rhythm CT/MRI/US Diagnostic Results CT/MRI/US Diagnostic Results : Impression [facility] [address] [place] [address] [phone], fax [phone] Reagan Romero M.D. Insulating Machine Operator Patient : KADY SWIFT Referring Physician: Pablito Alcala MD ID Number: [id number] Service Date: 08/13/19 : 1950 Report Date: 08/13/19 Gender: M Accession No.: [id number] Location: EMR Procedure: CT Abdomen Pelvis w/Contrast EXAM: CT Abdomen and Pelvis With Intravenous Contrast CLINICAL HISTORY: PAIN TECHNIQUE: Axial computed tomography images of the abdomen and pelvis with intravenous contrast. CTDI is 17.6 mGy and DLP is 1004.6 mGy-cm. One or more of the following dose reduction techniques were used: automated exposure control, adjustment of the mA and/or kV according to patient size, use of iterative reconstruction technique. COMPARISON: No relevant prior studies available. FINDINGS: Lung bases: Left lower lobe atelectasis. ABDOMEN: Liver: No significant abnormality. Gallbladder and bile ducts: Cholelithiasis. Pancreas: No significant abnormality. Spleen: No significant abnormality. Adrenals: No significant abnormality. Kidneys and ureters: No significant abnormality. No hydronephrosis. Stomach and bowel: Colonic diverticulosis without focal inflammatory change. Bowel is nondilated. PELVIS: Appendix: No findings to suggest acute appendicitis. Bladder: No significant abnormality. Reproductive: Unremarkable as visualized. ABDOMEN and PELVIS: Intraperitoneal space: No significant abnormality. No free air. Bones/joints: Bilateral hip arthroplasties. No acute osseous abnormality. Osteopenia. Degenerative changes of the spine. Sternotomy wires. Soft tissues: Small fat-containing bilateral inguinal hernias. Vasculature: Aortic atherosclerosis. No abdominal aortic aneurysm. Lymph nodes: No significant abnormality. Tubes, lines and devices: Cardiac pacemaker. IMPRESSION: No acute CT findings in the abdomen or pelvis. Dictated By: Mariana Cummins MD Electronically Signed By: Mariana Cummins MD Signed Date/Time 08/13/19 4749 CC: Pablito Alcala MD Last Vital Signs Date Time Temp Pulse Resp B/P (MAP) Pulse Ox O2 Delivery O2 Flow Rate FiO2 08/13/19 17:02 97.3 94 19 128/81 (97) 96 Room Air Disposition: HOME, SELF-CARE Condition: Stable Referrals: Neri Encinas MD Patient Instructions: Chronic Diarrhea Additional Instructions: The patient was provided with discharge instructions, notified to follow-up with a primary care doctor and or specialist in the next 24-48 hours, and to return to the ED if they have worsening of their symptoms. Please note that this report is being documented using Brightleaf technology. This can lead to erroneous entry secondary to incorrect interpretation by the dictating instrument. Pablito Alcala MD Aug 13, 2019 17:35
[2019-08-13 18:17] LABS: APPEARANCE,URINE CLEAR; BILIRUBIN, URINE NEGATIVE (NEGATIVE); COLOR,URINE PALE YELLOW; GLUCOSE, URINE (UA) NEGATIVE (NEGATIVE); KETONES,URINE NEGATIVE (NEGATIVE); LEUKOCYTE ESTERASE ,URINE NEGATIVE (NEGATIVE); NITRITE,URINE NEGATIVE (NEGATIVE); PH,URINE 5 (4.5-8.0); PROTEIN,URINE NEGATIVE (NEGATIVE); UROBILINOGEN,URINE NORMAL MG/DL (0.0-1.0)
[2019-08-13 18:22] LABS: ANION GAP 13 mmol/L (5-15); BLOOD UREA NITROGEN 32 mg/dL (7-18); CALCIUM 9.5 MG/DL (8.5-10.1); CARBON DIOXIDE 26 MMOL/L (21-32); CHLORIDE 93 MMOL/L (98-107); CREATININE 1.1 MG/DL (0.55-1.30); INR 1.6 (0.9-1.1); SODIUM 132 MMOL/L (136-145)
[2019-08-13 18:25] LABS: ALANINE AMINOTRANSFERASE 28 U/L (12-78); ALBUMIN 3.7 G/DL (3.4-5.0); ALBUMIN/GLOBULIN RATIO 0.9 (1.0-2.7); ALKALINE PHOSPHATASE 95 U/L (46-116); ASPARTATE AMINO TRANSFERASE 24 U/L (15-37); BILIRUBIN,TOTAL 0.4 MG/DL (0.2-1.0)
[2019-08-13 18:29] LABS: BASOPHILS % (AUTO) 1.3 % (0.0-2.0); EOSINOPHILS % (AUTO) 1.2 % (0.0-3.0); HEMATOCRIT 44.7 % (42.0-52.0); HEMOGLOBIN 14.7 G/DL (14.2-18.0); LYMPHOCYTES % (AUTO) 14.1 % (20.0-45.0); MEAN CORPUSCULAR VOLUME 81 FL (80-99); MONOCYTES % (AUTO) 8.4 % (1.0-10.0); NEUTROPHILS % (AUTO) 74.9 % (45.0-75.0); PLATELET COUNT 224 K/UL (150-450); RED CELL DISTRIBUTION WIDTH 13.9 % (11.6-14.8); WHITE BLOOD COUNT 11.2 K/UL (4.8-10.8)
--- NOTE | 2019-08-13 18:48 | Diagnostic Imaging Report ---
EXAM: CT Abdomen and Pelvis With Intravenous Contrast CLINICAL HISTORY: PAIN TECHNIQUE: Axial computed tomography images of the abdomen and pelvis with intravenous contrast. CTDI is 17.6 mGy and DLP is 1004.6 mGy-cm. One or more of the following dose reduction techniques were used: automated exposure control, adjustment of the mA and/or kV according to patient size, use of iterative reconstruction technique. COMPARISON: No relevant prior studies available. FINDINGS: Lung bases: Left lower lobe atelectasis. ABDOMEN: Liver: No significant abnormality. Gallbladder and bile ducts: Cholelithiasis. Pancreas: No significant abnormality. Spleen: No significant abnormality. Adrenals: No significant abnormality. Kidneys and ureters: No significant abnormality. No hydronephrosis. Stomach and bowel: Colonic diverticulosis without focal inflammatory change. Bowel is nondilated. PELVIS: Appendix: No findings to suggest acute appendicitis. Bladder: No significant abnormality. Reproductive: Unremarkable as visualized. ABDOMEN and PELVIS: Intraperitoneal space: No significant abnormality. No free air. Bones/joints: Bilateral hip arthroplasties. No acute osseous abnormality. Osteopenia. Degenerative changes of the spine. Sternotomy wires. Soft tissues: Small fat-containing bilateral inguinal hernias. Vasculature: Aortic atherosclerosis. No abdominal aortic aneurysm. Lymph nodes: No significant abnormality. Tubes, lines and devices: Cardiac pacemaker. IMPRESSION: No acute CT findings in the abdomen or pelvis.
[2019-08-13 19:26] VITALS: BP 128/81
--- NOTE | 2019-08-13 19:27 | NUR ---
ED Nurse Note: Pt cleared by health care Provider for discharge. DC instructions/prescription was given and explained to pt and verbalized understanding of teachings. All medical deviecs such as ID band and IV removed. Pt is AAO x4, ambulatory and left with all personal belongings.
== END 2019-08-13 19:25 | disposition home or self-care (01) ==
LOC: EMR 17:15
DX: R19.7 Diarrhea, unspecified (principal); I11.9 Hypertensive heart disease without heart failure; E11.9 Type 2 diabetes mellitus without complications; Z95.0 Presence of cardiac pacemaker; Z88.1 Allergy status to other antibiotic agents; Z88.2 Allergy status to sulfonamides
CPT/HCPCS: 36415; 74177; 80053; 81003; 83690; 84484; 85025; 85610; 85730; 93005; 96361; 96374; 99284; J2405; Q9967

== ENCOUNTER 2019-08-30 12:43 | Emergency (ER) | payer MEDICARE, BC ==
[~2019-08-30] VITALS: Ht 198.1 cm; Wt 117.9 kg
[~2019-08-30 12:43] MED LIST changes: +AMLODIPINE BESY10 MG ORAL; +DONEPEZIL HCL5 M2 ORAL; +ZYRTEC10 MG ORAL
[2019-08-30 13:15] VITALS: BP 92/64
--- NOTE | 2019-08-30 13:15 | NUR ---
ED Nurse Note: Patient walked into ED with . Patient states he brought his d/t her having pain, but he stated to feel lightheaded like his BP was dropping while waiting in the waiting area. Patient states he takes multiple BP meds at home. Patient on the voltage regulator assembler, no s/s of acute distress. 20 g IV started in right AC, blood sent to lab. Patient unabel to provide urine currently , Tanner GREENBERG aware. VSS.
--- NOTE | 2019-08-30 14:14 | Diagnostic Imaging Report ---
Indication: Chest pain Technique: One view of the chest Comparison: 07/29/2019 Findings: The heart is enlarged. There is a left chest biventricular AICD again demonstrated. The lungs and pleural spaces are clear. There is no significant interim change Impression: Cardiomegaly. No acute process
--- NOTE | 2019-08-30 14:23 | Diagnostic Imaging Report ---
Indications: Headache and dizziness Technique: Spiral acquisitions obtained through the brain. Angled axial and coronal 5 x 5 mm slices were reconstructed. Total dose length product 1179 mGycm. CTDI vol(s) 53 mGy. Dose reduction achieved using automated exposure control Comparison: None. Findings: There is age-related enlargement of the ventricles and extra axial CSF spaces. No acute intracranial hemorrhage or edema. No mass effect nor midline shift. Normal howell-white differentiation. There is periventricular deep white matter low-attenuation, consistent with chronic microvascular ischemic change. Intact calvarium. The mastoids are clear. Visualized orbits and sinuses are unremarkable. There are old bilateral thalamic lacunar infarcts, best appreciated on the coronal images. There are questionably old lacunar infarcts in the oh. The mastoids are clear. The calvarium is intact. Impression: Chronic and age-related changes. Negative for acute intracranial bleed or mass effect. The CT scanner at [facility] is accredited by the [employer] and the scans are performed using protocols designed to limit radiation exposure to as low as reasonably achievable to attain images of sufficient resolution adequate for diagnostic evaluation.
[2019-08-30 14:31] LABS: HEMOGLOBIN 14.9 G/DL (14.2-18.0); MEAN CORPUSCULAR VOLUME 80 FL (80-99); PLATELET COUNT 90 K/UL (150-450); RED CELL DISTRIBUTION WIDTH 12.6 % (11.6-14.8); WHITE BLOOD COUNT 12.6 K/UL (4.8-10.8)
[2019-08-30 14:42] LABS: INR 1.6 (0.9-1.1)
[2019-08-30 14:44] LABS: ANION GAP 13 mmol/L (5-15); BLOOD UREA NITROGEN 24 mg/dL (7-18); CALCIUM 9.5 MG/DL (8.5-10.1); CARBON DIOXIDE 26 MMOL/L (21-32); CHLORIDE 98 MMOL/L (98-107); CREATININE 1.3 MG/DL (0.55-1.30); POTASSIUM 4.3 MMOL/L (3.5-5.1); SODIUM 137 MMOL/L (136-145)
[2019-08-30 14:54] LABS: ALANINE AMINOTRANSFERASE 33 U/L (12-78); ALBUMIN 4.1 G/DL (3.4-5.0); ALBUMIN/GLOBULIN RATIO 1.2 (1.0-2.7); ALKALINE PHOSPHATASE 111 U/L (46-116); ASPARTATE AMINO TRANSFERASE 20 U/L (15-37); BILIRUBIN,TOTAL 0.5 MG/DL (0.2-1.0)
--- NOTE | 2019-08-30 15:34 | Emergency Room Report ---
History of Present Illness General Chief Complaint: Dizziness Source: Patient Present Illness HPI 68-year-old male with history of A. fib, CHF, hypertension and chronic diarrhea here complaining of 1 day of dizziness and feeling fatigued. Denies any generalized weakness, headache, chest pain, shortness of breath, palpitation, fever and chills. Denies any recent travel or URI symptoms. Reports that the diarrhea has been resolved. Denies any nausea vomiting at this time. Reports that he woke up this morning ate breakfast, and then stop since 630 and been feeling dizzy however denies any fall or injury, denies any syncopal episode or hitting his head. Reports that he has CT scans and MRIs scheduled to rule out Parkinson's. Has an upcoming appointment with neurologist. Patient reports that in the past he has been getting dizzy whenever his blood pressure lowers. He appears to have a blood pressure of 94/60 upon arrival. Complains of extreme hunger. Sitting comfortably otherwise with stable vital signs. No unilateral generalized weakness noted. Denies drug use or tobacco smoke at this time. Up-to-date with all of his doctors visits, and medications. COVID-19 risk:Travel to affect: No Has patient experienced gonzalez: No Allergies: Coded Allergies: BACITRACIN (Verified Allergy, Unknown, 11/16/18) NEOMYCIN (Verified Allergy, Unknown, 11/16/18) POLYMYXIN B (Verified Allergy, Unknown, 11/16/18) SULFA (SULFONAMIDE ANTIBIOTICS) (Verified Allergy, Unknown, 11/16/18) Patient History Past Medical History: see triage record Past Surgical History: none Pertinent Family History: none Reviewed Nursing Documentation: PMH: Agreed; PSxH: Agreed Nursing Documentation-PMH Hx Cardiac Problems: Yes Hx Hypertension: Yes Hx Pacemaker: Yes Hx Asthma: No Hx COPD: No Hx Diabetes: Yes Hx Cancer: No Hx Gastrointestinal Problems: No Hx Dialysis: No Hx Neurological Problems: No Hx Cerebrovascular Accident: No Hx Seizures: No Hx Neurologic Surgery: No Hx Brain Shunt: No Review of Systems All Other Systems: negative except mentioned in HPI Physical Exam Vital Signs Date Time Temp Pulse Resp B/P (MAP) Pulse Ox O2 Delivery O2 Flow Rate FiO2 08/30/19 13:08 98 18 Room Air 08/30/19 13:08 98.1 92/64 (97) 94 Sp02 EP Interpretation: reviewed, normal General Appearance: no apparent distress, alert, GCS 15, non-toxic Head: normocephalic, atraumatic Eyes: bilateral eye normal inspection, bilateral eye PERRL ENT: hearing grossly normal, normal pharynx, no angioedema, normal voice Neck: full range of motion, supple, thyroid normal, no meningismus, no bony tend, supple/symm/no masses Respiratory: chest non-tender, lungs clear, normal breath sounds, no rhonchi, no retraction, no wheezing, speaking full sentences Cardiovascular #1: regular rate, rhythm, no edema, no murmur Cardiovascular #2: 2+ carotid (R), 2+ carotid (L), 2+ radial (R), 2+ radial (L) , 2+ dorsalis pedis (R), 2+ dorsalis pedis (L) Gastrointestinal: normal bowel sounds, non tender, soft, non-distended, no guarding, no rebound Rectal: deferred Genitourinary: no CVA tenderness Musculoskeletal: back normal Neurologic: alert, oriented Psychiatric: judgement/insight normal, memory normal, mood/affect normal, no suicidal/homicidal ideation Skin: no rash, other - ulcer posterior ankle Lymphatic: no adenopathy Medical Decision Making PA Attestation All my diagnosis and treatment plans were reviewed ad discussed with my supervising physician Dr. Gillette Diagnostic Impression: Primary Impression: Dizziness Additional Impression: Ankle ulcer ER Course 68-year-old male with history of A. fib, CHF, hypertension and chronic diarrhea here complaining of 1 day of dizziness and feeling fatigued. Denies any generalized weakness, headache, chest pain, shortness of breath, palpitation, fever and chills. Denies any recent travel or URI symptoms. Reports that the diarrhea has been resolved. Denies any nausea vomiting at this time. Reports that he woke up this morning ate breakfast, and then stop since 630 and been feeling dizzy however denies any fall or injury, denies any syncopal episode or hitting his head. Reports that he has CT scans and MRIs scheduled to rule out Parkinson's. Has an upcoming appointment with neurologist. Patient reports that in the past he has been getting dizzy whenever his blood pressure lowers. He appears to have a blood pressure of 94/60 upon arrival. Complains of extreme hunger. Sitting comfortably otherwise with stable vital signs. No unilateral generalized weakness noted. Denies drug use or tobacco smoke at this time. Up-to-date with all of his doctors visits, and medications. After I discharged the patient he then mentions an ulcerative appearing on the left posterior ankle which appears to be minimally infected Ddx considered but are not limited to: Dizziness due to alcohol intoxication, dizziness unspecified, dizziness due to head trauma, dizziness secondary to cardiac reasons Vital signs: are WNL, pt. is afebrile H&PE are most consistent with: dizziness , Ankle ulcer ORDERS: Chest pain order set, head CT, Keflex ER intervention: 2 L of NS bolus DISCHARGE: At this time pt. is stable for d/c to home. Will provide printed patient care instructions, and any necessary prescriptions. Care plan and follow up instructions have been discussed with the patient prior to discharge. EKG Diagnostic Results Rate: normal Rhythm: NSR ST Segments: no acute changes Other Impression No acute ST changes Chest X-Ray Diagnostic Results Chest X-Ray Diagnostic Results : Chest X-Ray Ordered: Yes # of Views/Limited/Complete: 1 View Indication: Other EP Interpretation: Yes YARI Xray: Interpretation reviewed, by supervising MD, and agrees with findings. Interpretation: no consolidation, no effusion, no pneumothorax Impression: No acute disease Electronically Signed by: Tanner Nicole PA-C CT/MRI/US Diagnostic Results CT/MRI/US Diagnostic Results : Imaging Test Ordered: Head CT no contrast Impression No acute condition, no intracranial bleed Last Vital Signs Date Time Temp Pulse Resp B/P (MAP) Pulse Ox O2 Delivery O2 Flow Rate FiO2 08/30/19 13:15 98.1 18 92/64 94 Room Air 08/30/19 13:08 98 Disposition: HOME, SELF-CARE Condition: Stable Referrals: Neri Encinas MD (PCP) Patient Instructions: Dizziness, Skin Ulcer Additional Instructions: Follow-up with 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 Encinas , skip a dose of Lasix today, if worsening symptoms return to the emergency room Tanner Calderon Aug 30, 2019 15:34
[2019-08-30 15:57] LABS: APPEARANCE,URINE CLEAR; BILIRUBIN, URINE NEGATIVE (NEGATIVE); COLOR,URINE PALE YELLOW; GLUCOSE, URINE (UA) NEGATIVE (NEGATIVE); KETONES,URINE NEGATIVE (NEGATIVE); LEUKOCYTE ESTERASE ,URINE NEGATIVE (NEGATIVE); NITRITE,URINE NEGATIVE (NEGATIVE); PH,URINE 5 (4.5-8.0); PROTEIN,URINE NEGATIVE (NEGATIVE); UROBILINOGEN,URINE NORMAL MG/DL (0.0-1.0)
--- NOTE | 2019-08-30 16:29 | NUR ---
ED Nurse Note: Tanner GREENBERG at bedside.
[2019-08-30] MEDS ORDERED: CEPHALEXIN500 MG ORAL (16:34)
[2019-08-30 17:10] VITALS: BP 110/72
== END 2019-08-30 17:10 | disposition home or self-care (01) ==
LOC: EMR 13:24
DX: R42 Dizziness and giddiness (principal); L98.499 Non-pressure chronic ulcer of skin of other sites with unspecified severity; Z95.0 Presence of cardiac pacemaker; E11.9 Type 2 diabetes mellitus without complications; Z88.2 Allergy status to sulfonamides; Z88.8 Allergy status to other drugs, medicaments and biological substances; I11.0 Hypertensive heart disease with heart failure; I50.9 Heart failure, unspecified
CPT/HCPCS: 36415; 70450; 71045; 80053; 80307; 81003; 83880; 84484; 85007; 85025; 85610; 85730; 93005; 96360; 96361; 99284; J7030